=== PATIENT | female | born 1965 | race African-American/Black ===

== ENCOUNTER 2020-08-20 11:50 | Inpatient (IN) | payer OTHER, SELFPAY ==
[2020-08-20] VITALS (32 sets, daily range): BP systolic 80–139; BP diastolic 50–80
[~2020-08-20] VITALS: Ht 162.6 cm; Wt 144.2 kg
--- NOTE | 2020-08-20 11:53 | NUR ---
BIBA TO BED 6
--- NOTE | 2020-08-20 12:14 | NUR ---
54 Y/O FEMALE BIBA FROM URGENT CARE APPT. PER MEDIC PT SPO2 DROPPED TO 76% ON RA PLACED ON NRB 15L SPO2 98%. PER PT SOB X3DAYS. PER FAMILY PT GCS BASELINE IS 13, PT IS POOR HISTORIAN AND UNABLE TO PROVIDE MEDICAL HISTORY AT THIS TIME. RESP EVEN AND UNLABORED. LUNG SOUNDS ARE DIMINISHED TO BILATERAL BASES. PT IS CURRENTLY ON NON REBREATHER AT THIS TIME. AFEBRILE. PMH: HLD, PNA, HYPOTHYROIDISM NKA
--- NOTE | 2020-08-20 12:48 | NUR ---
RT AT BEDSIDE PLACING PATIENT ON BIPAP AT THIS TIME
--- NOTE | 2020-08-20 12:58 | NUR ---
PER MD AT BEDSIDE, PLACE PT ON BIPAP DUE TO WOB, DECREASED SATS, AND MENTAL STATUS. EXPLAINED TO PT REGARDING NEED FOR BIPAP AND USE. PT INDICATED THAT SHE UNDERSTOOD USE OF BIPAP.
[2020-08-20 13:03] LABS: BASOPHILS % (AUTO) 0.5 % (0.0-2.0); EOSINOPHILS % (AUTO) 0.3 % (0.0-4.0); HEMATOCRIT 30.6 % (36-48); HEMOGLOBIN 9.7 g/dL (12.0-16.0); LYMPHOCYTES # (AUTO) 0.3 K/uL (2.5-16.5); LYMPHOCYTES % (AUTO) 3.7 % (20.5-51.1); MEAN CORPUSCULAR HEMOGLOBIN 31 pg (27-31); MEAN CORPUSCULAR HGB CONC 32 g/dL (33-37); MEAN CORPUSCULAR VOLUME 97.3 fL (80-94); MONOCYTES # (AUTO) 0.5 K/uL (0.8-1.0); MONOCYTES % (AUTO) 5.3 % (1.7-9.3); NEUTROPHILS # (AUTO) 8.5 K/uL (1.8-7.7); NEUTROPHILS % (AUTO) 90.2 % (42.2-75.2); PLATELET COUNT (AUTO) 220 K/uL (140-450); RED BLOOD CELL COUNT(AUTO) 3.15 MIL/uL (4.20-5.40); RED CELL DISTRIBUTION WIDTH 17.9 % (11.6-13.7); WHITE BLOOD COUNT (AUTO) 9.4 K/uL (4.8-10.8)
--- NOTE | 2020-08-20 13:07 | NUR ---
XRAY AT BEDSIDE
--- NOTE | 2020-08-20 13:08 | NUR ---
# 16 FR Leslie catheter with 10 ml utilizing sterile technique. Immediate return of 20 ml YELLOW CLEAR urine noted. Bedside drainage bag placed below level of bladder. Urine sample collected and sent to lab. Pt tolerated procedure WELL.
[2020-08-20 13:19] LABS: PROTHROMBIN TIME 10.4 secs (10.8-13.4)
--- NOTE | 2020-08-20 13:19 | NUR ---
PT TIFFANYID SWABBED AND WALKED TO LAB
[2020-08-20 13:24] LABS: ALBUMIN 2.9 g/dL (3.4-5.0); CREATININE 1.5 mg/dL (0.6-1.3); TOTAL BILIRUBIN 0.4 mg/dL (0.0-1.0)
[2020-08-20 13:32] LABS: CARBON DIOXIDE 41.3 mmol/L (21-32); POTASSIUM 5.8 mmol/L (3.5-5.1)
[2020-08-20 13:33] LABS: ANION GAP 0.5 (8-16)
[2020-08-20] MEDS ORDERED: INSULIN REGULAR, HUMAN 100 UNIT/ML VIAL SUBQ ONE (13:40)
[2020-08-20] MEDS ORDERED: DEXTROSE 50% 50 ML SYR IVP ONE (13:40)
[2020-08-20] MEDS ORDERED: SODIUM BICARBONATE 8.4% PFS 50 MEQ/50 ML SYR IVP ONE (13:40)
--- NOTE | 2020-08-20 14:45 | NUR ---
RT AT BEDSIDE FOR REPEAT ABG DRAW.
[2020-08-20] MEDS ORDERED: INTUBATION KIT MC ONE (15:06)
[2020-08-20] MEDS ORDERED: ROCURONIUM 50 MG/5 ML VIAL IV ONE (15:10)
[2020-08-20] MEDS ORDERED: ETOMIDATE 20 MG/10 ML VIAL IVP ONE (15:10)
[2020-08-20 15:15] LABS: APPEARANCE,URINE CLEAR (CLEAR); BILIRUBIN,URINE NEGATIVE (NEGATIVE); BLOOD, URINE NEGATIVE (NEGATIVE); COLOR,URINE YELLOW (YELLOW); LEUKOCYTE ESTERASE ,URINE NEGATIVE (NEGATIVE); NITRITE, URINE NEGATIVE (NEGATIVE); UGLUCOSE NEGATIVE (NEGATIVE)
--- NOTE | 2020-08-20 15:15 | NUR ---
DR. FORD AT BEDSIDE FOR INTUBATION.
--- NOTE | 2020-08-20 15:17 | NUR ---
INTUBATION---8 ET TUBE SIZE, 23 CM AT THE TEETH.
[2020-08-20] MEDS ORDERED: ASPIRIN 600 MG SUPP RC ONE (15:30)
[2020-08-20] MEDS ORDERED: FUROSEMIDE 20 MG/2 ML VIAL IVP ONE (15:30)
--- NOTE | 2020-08-20 15:30 | NUR ---
PATIENT INTUBATED PER MD ORDER DUE TO ABNORMAL ABG RESULT. INTUBATION SUCCESSFUL WITH NO ISSUES. PATIENT IS INTUBATED WITH 8.0 ET TUBE, CAP COLOR CHANGE PRESENT, BILAT CHEST RISE PRESENT AND BREATH SOUND PRESENT BILATERALLY. TUBE IS PATENT AND SECURED WITH HOLSTER. VENT SETTING IS AC 22, 400, +5 AND FIO2 OF 60%. XRAY TAKEN CONFIRMING TUBE PLACEMENT. WILL CONTINUE TO MONITOR PATIENT PROGRESS.
[2020-08-20] MEDS ORDERED: PRED20TA5 PO (15:33)
[2020-08-20] MEDS ORDERED: ASPI-1822 PO (15:33)
[2020-08-20] MEDS ORDERED: FURO-570 PO (15:33)
[2020-08-20] MEDS ORDERED: ATOR40TA PO (15:33)
[2020-08-20] MEDS ORDERED: CHOL50005 PO (15:33)
[2020-08-20] MEDS ORDERED: LEVO0.124 PO (15:33)
[2020-08-20] MEDS ORDERED: SIMV20TA1 PO (15:33)
[2020-08-20] MEDS ORDERED: ENAL5TAB48 PO (15:33)
[2020-08-20] MEDS ORDERED: PROPOFOL 1000 MG/100 ML PREMIX 100 ML IV ONE (15:50)
[2020-08-20] MEDS ORDERED: MORPHINE SULFATE 2 MG/ML SYR IVP PRN (16:00)
[2020-08-20] MEDS ORDERED: ACETAMINOPHEN 650 MG/20.3 ML UDC NG PRN (16:10)
[2020-08-20] MEDS ORDERED: fentaNYL citrate 1 MG in NACL 0.9% 80 ML IV PRN ×2 (16:20→18:40)
[2020-08-20] MEDS: fentaNYL citrate - 50mL vial 2.5 MG in NACL 0.9% 200 ML IV PRN (16:30)
--- NOTE | 2020-08-20 16:41 | NUR ---
XRAY AT BEDSIDE
--- NOTE | 2020-08-20 16:45 | NUR ---
REPORT GIVEN TO RAMIREZ MONTANEZ.
--- NOTE | 2020-08-20 17:39 | NUR ---
Patient will be admitted to [facility]. Admited to ICU. Will go to room 1. Belongings list completed. Report to RAMIREZ MONTANEZ.
--- NOTE | 2020-08-20 17:41 | NUR ---
transferred pt to icu on vent attached to oxygen tank. pt placed in icu bed 1,sxned pt,[facility] pt tolerated transfer well.no resp distress noted
--- NOTE | 2020-08-20 17:43 | NUR ---
pt transferred to icu from ed on vent attached to oxygen tank,pt tolerated transfer well, no distress noted,and sxn pt ett after settled in room.
--- NOTE | 2020-08-20 17:45 | NUR ---
PT ARRIVED FROM ER IN [facility], PT WITH ETT TO VENT, GOOD CHEST RISE AND FALL, PT PLACED ON CORRUGATOR MACHINE OPERATOR, HR 89, BP 110/66, O2SAT 94%, VENT SETTING ACVC FIO2 75% TV 400, RR 20, PEEP 7, SKIN WARM DRY COLOR WNL, SEVER EDEMA THOUGHOUT, MULTIPLE BLISTER LIKE LESIONS TO LOWER LEGS, KELOID SCARS ON CHEST, PT PULLING ON ETT AND OTHER TUBINGS, PLACED ON BILAT SOFT RESTRAINTS TO PREVENT HARM. PIV TO LEFT AC, PROPOFOL INFUSING AT 20MCG/KG/MIN, FENTANYL 0.5MCG/KG/HR, DRY WT 149KG PER BED SCALE. SHORE CATH IN PLACE DRAINING TO GRAVITY.
[2020-08-20] MEDS: PROPOFOL 1000 MG/100 ML PREMIX 100 ML IV PRN ×2 (18:00→20:02)
--- NOTE | 2020-08-20 18:00 | NUR ---
DR HAMILTON AT BEDSIDE
--- NOTE | 2020-08-20 18:10 | NUR ---
SPOKE WITH MOTHER ON THE PHONE REGARDING ADMISSION QUESTIONS,CONSENT FOR PICC LINE OBTAINED
[2020-08-20] MEDS: FUROSEMIDE 40 MG/4 ML VIAL IVP SCH ×2 (18:13→23:02)
--- NOTE | 2020-08-20 18:29 | NUR ---
RECEIVED CALL FROM PICC RN DELBERT AND SAID HE IS ON THE WAY FOR PICC INSERTION.
--- NOTE | 2020-08-20 18:50 | NUR ---
RCV'D PT INTUBATED WITH CHARTED SETTINGS. PT NOT AWAKE. NO SOB OR DISTRESS NOTED. VENT CONNECTED TO RED OUTLET. ALARMS AUDIBLE. AMBU BAG AT BEDSIDE. DECREASED FIO2 TO 70%. SPO2 IS 94%. WILL CONTINUE TO MONITOR.
--- NOTE | 2020-08-20 19:15 | NUR ---
RECIEVED BEDSIDE ENDORSEMENT FROM DAY SHIFT RN, PT SEDATED RASS -3, HOB 30 DEGREES LOW AND SIDE RAILS UP, ETT TO VENT ACVC FIO2 75% TV 400 RATE 20 PEEP 5, SR ON MONITOR, ABD SOFT AND NON TENDER TO TOUCH, AFEBRILE, SKIN WARM AND DRY TO TOUCH, SKIN NON INTACT/SEE WOUND ASSESSMENT, OGT CLAMPED/NPO, FC IN PLACE DRAINING VIA GRAVITY, RAC 20 G SALINE LOCKED, L-WRIST 22 G SALINE LOCKED, LAC 20 G INFUSING PROPOFOL 20MCG/KG/HR AND FENTANYL 1 MCG/KG/HR, PT SHOWING NO SIGNS OF ACUTE DISTRESS, SAFETY MEASURES IN PLACE, WILL CONTINUE WITH CURRENT POC
--- NOTE | 2020-08-20 19:25 | NUR ---
DR TORREZ AT BEDSIDE
--- NOTE | 2020-08-20 20:30 | NUR ---
PICC LINE NURSE DELBERT AT BEDSIDE FOR INSERTION
--- NOTE | 2020-08-20 20:47 | NUR ---
CHEST X RAY 1 VIEW ORDERED TO SEE THE PICC LINE PLACEMENT CONFIRMATION. PICC LINE INSERTION DONE BY DELBERT PICC LINE NURSE. CHEST X RAY DONE AND DELBERT REVIEW IT AND HE SAID OKAY TO USE THE PICC LINE TO KALPESH DOUBLE LUMENS.
[2020-08-20] MEDS ORDERED: FUROSEMIDE 40 MG/4 ML VIAL IVP SCH (21:00)
--- NOTE | 2020-08-20 22:59 | NUR ---
DECREASED FIO2 TO 50%. PT TOLERATING WELL. NO SOB OR DISTRESS NOTED. RN AWARE. WILL CONTINUE TO MONITOR.
--- NOTE | 2020-08-20 23:05 | NUR ---
ADMINISTERED 0000H MEDICAITON PER MD ORDER, ORAL CARE AND SUCTIONING PERFORMED, REPOSITIONED PT, SHOWING NO SIGNS OF ACUTE DISTRESS
[2020-08-21] VITALS (53 sets, daily range): BP systolic 64–140; BP diastolic 39–84
--- NOTE | 2020-08-21 00:56 | NUR ---
VENT CHECK. PT AWAKE AND REFUSED SXN. NO DISTRESS NOTED. RN AT BEDSIDE. DECREASED FIO2 TO 40%. PT TOLERATING WELL. SPO2 96%. WILL CONTINUE TO MONITOR.
--- NOTE | 2020-08-21 02:43 | NUR ---
REPOSITIONED PT, MORNING CARE GIVEN, ORAL CARE AND SUCTIONING PERFORMED, PT SHOWING NO SIGNS OF ACUTE DISTRESS
--- NOTE | 2020-08-21 03:06 | NUR ---
DECREASED PT'S FIO2 TO 30% PT TOLERATING WELL. NO SOB OR DISTRESS NOTED. PT ASLEEP COMFORTABLY. WILL CONTINUE TO MONITOR.
[2020-08-21] MEDS: PROPOFOL 1000 MG/100 ML PREMIX 100 ML IV PRN ×3 (04:15→20:42)
[2020-08-21] MEDS: FUROSEMIDE 40 MG/4 ML VIAL IVP SCH ×4 (05:28→23:04)
[2020-08-21] MEDS ORDERED: CRUSHER, PILL MC ONE (05:36)
[2020-08-21] MEDS: LEVOTHYROXINE 0.025 MG TAB NG SCH (05:37)
--- NOTE | 2020-08-21 05:52 | NUR ---
REPOSITIONED PT, ORAL CARE AND SUCTIONING PERFORMED, EMPTIED FC BAG, ADMINISTERED 0600H AND 0630H MEDICATIONS PER MD ORDERED, PT SHOWING NO SIGNS OF ACUTE DISTRESS
[2020-08-21 06:08] LABS: ALBUMIN 2.4 g/dL (3.4-5.0); ANION GAP 4.9 (8-16); CREATININE 1.5 mg/dL (0.6-1.3); MAGNESIUM 2.4 mg/dL (1.8-2.4); POTASSIUM 4.9 mmol/L (3.5-5.1); TOTAL BILIRUBIN 0.6 mg/dL (0.0-1.0)
[2020-08-21 06:17] LABS: BASOPHILS % (AUTO) 0.3 % (0.0-2.0); EOSINOPHILS % (AUTO) 0.6 % (0.0-4.0); HEMATOCRIT 31.2 % (36-48); HEMOGLOBIN 9.9 g/dL (12.0-16.0); LYMPHOCYTES # (AUTO) 0.6 K/uL (2.5-16.5); LYMPHOCYTES % (AUTO) 7.7 % (20.5-51.1); MEAN CORPUSCULAR HEMOGLOBIN 31 pg (27-31); MEAN CORPUSCULAR HGB CONC 32 g/dL (33-37); MONOCYTES # (AUTO) 0.5 K/uL (0.8-1.0); MONOCYTES % (AUTO) 6.7 % (1.7-9.3); NEUTROPHILS # (AUTO) 6.8 K/uL (1.8-7.7); NEUTROPHILS % (AUTO) 84.7 % (42.2-75.2); PLATELET COUNT (AUTO) 230 K/uL (140-450); RED BLOOD CELL COUNT(AUTO) 3.25 MIL/uL (4.20-5.40); RED CELL DISTRIBUTION WIDTH 18.2 % (11.6-13.7); WHITE BLOOD COUNT (AUTO) 8.1 K/uL (4.8-10.8)
--- NOTE | 2020-08-21 07:11 | NUR ---
ENDORSED TO DAY SHIFT RN FOR CONTINUITY OF CARE
--- NOTE | 2020-08-21 07:16 | NUR ---
RECEIVED REPORT FROM NIGHTSHIFT NURSE. PT DRY WEIGHT 149KG. PT RESTING IN BED. FLACC 0. RESPIRATIONS EVEN AND UNLABORED WITH NO SOB OR RESPIRATORY DISTRESS. FIO2 30%, RR 20, PEEP 7. PT ON PROPOFOL AT 15MCG AND FENTYL 1MCG RASS -3. BILATERAL SOFT MITTEN RESTRAINTS. NO INJURY. SAFETY MEASURES IN PLACE. WILL CONTINUE TO MONITOR
[2020-08-21] MEDS: ATORVASTATIN 20 MG TAB NG SCH (08:29)
[2020-08-21] MEDS: ENOXAPARIN 40 MG/0.4 ML SYR SUBQ SCH (08:29)
[2020-08-21] MEDS: ASPIRIN 81 MG TAB.CHEW NG SCH (08:29)
--- NOTE | 2020-08-21 08:30 | NUR ---
ADMINISTERED SCHED MED PRESCRIBED PER MD ORDER. PT TOLERATED WELL. MEDICATION EDUCATION PERFORMED. PT APHASIC AND UNABLE TO VERBALIZE UNDERSTANDING. SAFETY MEASURES IN PLACE. WILL CONTINUE TO MONITOR
--- NOTE | 2020-08-21 08:45 | NUR ---
FNS CONSULT FOR TUBE FEEDING WAS RECEIVED. PATIENT HAS BEEN SCREENED AND CATEGORIZED HIGH NUTRITION RISK. PATIENT WILL BE SEEN WITHIN 1-2 DAYS OF ADMISSION. 08/21/20-08/22/[address]
[2020-08-21] MEDS: fentaNYL citrate - 50mL vial 2.5 MG in NACL 0.9% 200 ML IV PRN (10:18)
--- NOTE | 2020-08-21 10:30 | NUR ---
TURNED AND REPOSITIONED PT. PT TOLERATED WELL. NO SIGNS OF DISTRESS. SAFETY MEASURES IN PLACE. WILL CONTINUE TO MONITOR
[2020-08-21] MEDS ORDERED: fentaNYL citrate - 50mL vial 2.5 MG in NACL 0.9% 200 ML IV PRN (10:40)
--- NOTE | 2020-08-21 10:40 | NUR ---
DC PLANNIN YRS OLD FEMALE ENMANUEL WAS ADMITTED FROM HOME WITH A DX OF RESP FAILURE , PULMONARY EDEMA. PT HAS A HX OF MORBID OBESITY,HTN, HLD HYPOTHYROID, CONGENITAL HEART DISEASE, CHF, SLEEP APNEA AND LEARNING DEFICIT. CXR SHOWED PROBABLE PULMONARY EDEMA AND SMALL BILATERAL PLEURAL EFFUSION. PT INTUBATED SEDATED. FIO2 30% SATING 95%. ON FENTANYL AND PROPOFOL DRIP. RAPID COVID TEST NEGATIVE, INFLUENZA A&B NEGATIVE. URINE AND BLOOD CULTURE PENDING. ADMINISTERED IV LASIX AND CONTINUED HOME MEDS. CONSULTED WITH PULMO. DC PLAN PER PATIENT RESPOND TO THE TREATMENT. CM TO FOLLOW Addendum: 08/24/20 at 1204 by Marquita Dobson RN DC PLANNING: PER DR RIZZO'S NOTE PT EXTUBATED, VERY ANXIOUS PLACE PATIENT ON BIPAP FIO2 50%. PT WILL BE ON CLOSE MONITORING. CALLED [facility] FOR UPDATED CLINICALS LEFT A MESSAGE FOR YOMI BAEZA . CM TO FOLLOW Addendum: 08/25/20 at 1257 by Marquita Dobson RN DC PLANNING: CALLED [facility] SPOKE WITH [facility], SHE REQUESTED TO BE FAXED AND FAXED CLINICALS TO [phone]. CM TO FOLLOW Addendum: 08/28/20 at 0842 by Marquita Dobson RN DC PLANNING: PT STILL ON BIPAP 100% FIO2 SATING 97%. PULMO DR RIZZO FOLLOWING TRIED HFNC OVERNIGHT AND BECAME HYPERCAPNIC AND HYPOXIC, AND PLACED ON BIPAP. DOPAMINE TO MAINTAIN MAP 65MMHG AND ABOVE. MIDODRINE SUPPORT. CALLED [facility] AND UPDATED PT'S CLINICALS. DC PLAN PER PT RESPOND TO THE TREATMENT. CM TO FOLLOW Addendum: 09/03/20 at 1353 by Marquita Dobson RN DC PLANNING: PT IS STILL ON HIGH FLOW O2 , CALLED [facility] LEFT A MESSAGE FOR [facility] EVAL. CM TO FOLLOW Addendum: 09/08/20 at 0850 by Ana Velasquez CM Addendum: 09/04/20 at 1644 by Marquita Dobson RN DC PLANNING RECEIVED A CALL FROM MAKENZIE BAEZA AT [facility] [phone] STATED SHE DISCUSSED WITH HER MUSICAL INSTRUMENTS ASSEMBLER AND DENIED FOR LTAC EVAL. [facility] RECOMMENDED IF NEEDED TO DO TRACH AND PEG AT THE HOSPITAL. DISCUSSED WITH DR SLOAN STATED HE ALREADY TALKED TO [facility] AND THE PLAN IS TO STAY UNTIL SHE GETS BETTER. ARYAN TO FOLLOW
--- NOTE | 2020-08-21 12:04 | NUR ---
TURNED AND REPOSITIONED PT. PT TOLERATED WELL. NO SIGNS OF DISTRESS. SAFETY MEASURES IN PLACE. WILL CONTINUE TO MONITOR
[2020-08-21] MEDS: NYSTATIN POW 100 MU/GM 15 GM BTL TP SCH (13:10)
[2020-08-21] MEDS: THERAHONEY GEL 42.5 GM TP SCH (13:10)
[2020-08-21] MEDS: GAUZE TP SCH (13:10)
--- NOTE | 2020-08-21 13:44 | NUR ---
08/21/20 RD INITIAL ASSESSMENT COMPLETED PLEASE REFER TO NUTRITION ASSESSMENT UNDER CARE ACTIVITY FOR ESTIMATED NUTRITIONAL NEEDS. 1. START TUBE FEEDING AT 25 ML/HR AND INCREASE TO 50 ML/HR AFTER 2 HR. CONTINUE VITAL AF 1.2 @ 50 ML/HR -THIS WILL PROVIDE 1440 KCAL AND 90 GM OF PROTEIN WHICH MEETS 100% OF KCAL AND 88% OF PROTEIN NEEDS 2. CONTINUE FREE WATER PER MD 50 ML Q8H 3. IF EXTUBATED, CONSIDER SWALLOW EVALUATION 4. RD TO FOLLOW-UP 2-3 DAYS, HIGH RISK AYANA BAEZ
--- NOTE | 2020-08-21 14:02 | NUR ---
TURNED AND REPOSITIONED PT. PT TOLERATED WELL. NO SIGNS OF DISTRESS. SAFETY MEASURES IN PLACE. WILL CONTINUE TO MONITOR
--- NOTE | 2020-08-21 16:13 | NUR ---
WOUND CARE EVALUATION NOTE: SKIN ASSESSMENT DONE WITH PRIMARY RN ON THIS 54 Y/O PT ADMITTED WITH DANYELL SCALE AT VERY HIGH RISK AND UN-STAGEABLE PRESSURE INJURY. PT ADMITTED WITH INITIAL DX OF SOB. ACUTE HYPOXEMIC, HX OF MORBID OBESITY, HTN, HYPERLIPIDEMIA, HYPOTHYROID, CHF, SLEEP APNEA, LEARNING DEFICIT AND ANASARCA.ABOVE INFORMATION OBTAIN FROM H&P. PT. IS INTUBATED, SKIN WARM AND MOIST, BILATERAL UPPER EXTREMITIES MOIST WITH MULTIPLE ECCHYMOSIS. ABDOMINAL EXTENDED SOFT TO TOUCH. DELAY CAPILLARY REFILLED. PT. DE SAT TO 66 % WHEN TURN TO SIDE DURING ASSESSMENT. POC DISCUSSED WITH PRIMARY RN. WILL ATTEMPT AUTOLYTIC DEBRIDEMENT FIRST AT THIS TIME TILL PT. IS MORE STABLE FOR SURGICAL DEBRIDEMENT IF NEEDED. INTEGUMENTARY: -INTERTRIGO TO BILATERAL UNDER BREAST, LOWER ABDOMINAL FOLDS AND GROINS -BLE SEVERE XEROSIS SKIN WITH NO OPEN ACTIVE WOUND, MULTIPLE BLISTER LIKE BUMPS, ORANGE SKIN, MULTIPLE DRY SCABS. RLE EDEMA IS GREATER THAN RIGHT. UN-KNOW HX OF POSSIBLE LYMPHEDEMA -PRESSURE INJURIES UN-STAGEABLE TO RIGHT ISCHIUM 9X6CM WITH WOUND BED 100% BROWN MOIST SLOUGH TISSUE, NO ODOR, WOUND EDGE FLAT, ALFA WOUND SKIN PEELING DRY SCALY SKIN AND THIN SCABS, SURROUNDING REDNESS TISSUE INDICATED FURTHER DAMAGE. - BILATERAL HEEL BLANCHABLE REDNESS, SKIN INTACT. RECOMMENDATIONS -SURGEON CONSULT DEBRIDEMENT TO RIGHT ISCHIUM WOUND WHEN PT IS STABLE -APPLY NYSTATIN POWDERS TO BILATERAL UNDER BREAST, LOWER ABDOMINAL FOLDS AND GROINS BID AND PRN IF SOILING, -CLEANSE RIGHT ISCHIUM WOUNDS WITH WOUND CARE SOLUTION, PAT DRY, APPLY THERAHONEY GEL TO WOUND BED AND APPLY DRY DRESSING SECURED WITH TAPE QD AND PRN IF SOILING -BLE APPLY XEROFORM DRESSING AND WRAP WITH KERLIX ROLLS, DRESSING CHANGE 3X/WEEK M-W- -SKIN PREP WIPE TO BILATERAL HEELS BID AND WENDI -TURN AND REPOSITION PATIENT Q 2H -ASSESS AND MONITOR SKIN CONDITION DURING POSITION CHANGE -OFFLOAD BILATERAL HEELS BY PLACING PILLOWS UNDER CALVES AT ALL TIMES, UNLESS OTHERWISE CONTRAINDICATED -PRESSURE REDISTRIBUTION SURFACE THERAPY -KEEP SKIN CLEAN AND DRY AT ALL TIMES. PLEASE CONTACT WOUND CARE NURSE FOR ANY QUESTION AND CHANGE OF WOUND CONDITION.
[2020-08-21 16:35] LABS: CREATINE KINASE MB 1.5 ng/mL (0-3.6)
--- NOTE | 2020-08-21 17:23 | NUR ---
SPOKE WITH KHRIS TO FOLLOW UP ON PATIENTS ALLERGIES, PER KHRIS [phone] THE PATIENT DOES NOT HAVE ANY KNOWN ALLERGIES. AWARE. SAFETY MEASURES IN PLACE. WILL CONTINUE TO MONITOR
[2020-08-21] MEDS: ALBUTEROL 0.083% 2.5 MG/3 ML NEBU INH PRN (17:30)
--- NOTE | 2020-08-21 18:30 | NUR ---
ADMINISTERED SCHED MED PRESCRIBED PER MD ORDER. PT TOLERATED WELL. MEDICATION EDUCATION PERFORMED. PT SEDATED AND UNABLE TO VERBALIZE UNDERSTANDING. SAFETY MEASURES IN PLACE. WILL CONTINUE TO MONITOR
--- NOTE | 2020-08-21 19:01 | NUR ---
ENDORSED TO NIGHTSHIFT FOR CONTINUITY OF CARE. PT IS STABLE
--- NOTE | 2020-08-21 19:05 | NUR ---
RECIEVED BEDSIDE ENDORSEMENT FROM DAY SHIFT RN, PT SEDATED RASS -3, HOB 30 DEGREES LOW AND SIDE RAILS UP, ETT TO VENT ACVC FIO2 35% TV 400 RATE 20 PEEP 6, SR ON MONITOR, ABD SOFT AND NON TENDER TO TOUCH, AFEBRILE, SKIN WARM AND DRY TO TOUCH, SKIN NON INTACT/SEE WOUND ASSESSMENT, OGT TO FEEDING INUSING, FC IN PLACE DRAINING VIA GRAVITY, L-WRIST 22 G SALINE LOCKED, KALPESH PICC INFUSING PROPOFOL 15 MCG/KG/HR AND FENTANYL 1 MCG/KG/HR, PT SHOWING NO SIGNS OF ACUTE DISTRESS, SAFETY MEASURES IN PLACE, WILL CONTINUE WITH CURRENT POC
--- NOTE | 2020-08-21 21:37 | NUR ---
REPOSITIONED PT, ORAL CARE AND SUCTIONING PERFORMED, PT SHOWING NO SIGNS OF ACUTE DISTRESS
--- NOTE | 2020-08-21 23:07 | NUR ---
ADMINISTERED 0000H MEDICAITON PER MD ORDERS, ORAL CARE AND SUCTIONING GIVEN, REPOSTIONED PT
[2020-08-22] VITALS (34 sets, daily range): BP systolic 65–186; BP diastolic 32–95
[2020-08-22] MEDS: NYSTATIN POW 100 MU/GM 15 GM BTL TP SCH ×2 (00:04→13:38)
--- NOTE | 2020-08-22 00:45 | NUR ---
RECIEVED LAB RESULTS, POSITIVE BLOOD CULTURE, POSITIVE GRAM COCCI, CONTACTED [facility], AWAITING CALL BACK
[2020-08-22] MEDS ORDERED: VANCOMYCIN PER PHARMACY MC PRN (02:00)
[2020-08-22] MEDS ORDERED: VANCOMYCIN 1GM/DEXT 5% PREMIX 200 ML IV SCH ×2 (02:30→04:00)
--- NOTE | 2020-08-22 02:45 | NUR ---
ADMINISTERED FIRST DOSE OF VANCOMYCIN
--- NOTE | 2020-08-22 03:10 | NUR ---
MORNING CARE GIVEN, REPOSITIONED PT, ORAL CARE AND SUCTIONING GIVEN, PT SHOWING NO SIGNS OF ACUTE DISTRESS
[2020-08-22] MEDS: PROPOFOL 1000 MG/100 ML PREMIX 100 ML IV PRN (03:32)
[2020-08-22] MEDS ORDERED: VANCOMYCIN 1,000 MG VIAL ONE ×2 (04:02)
--- NOTE | 2020-08-22 04:30 | NUR ---
ADMINISTERED 2ND DOSE OF VANCOMYCIN
[2020-08-22] MEDS: FUROSEMIDE 40 MG/4 ML VIAL IVP SCH ×5 (05:36→18:59)
[2020-08-22] MEDS ORDERED: CRUSHER, PILL MC ONE (05:39)
[2020-08-22] MEDS: LEVOTHYROXINE 0.025 MG TAB NG SCH (05:49)
--- NOTE | 2020-08-22 06:17 | NUR ---
ADMINISTERED 0600H MEDICATIONS PER MD ORDER, ORAL CARE AND SUCTIONING GIVEN, PT SHOWING NO SIGNS OF ACUTE DISTRESS
[2020-08-22 06:21] LABS: ANION GAP 7.1 (8-16); CARBON DIOXIDE 36.6 mmol/L (21-32); MAGNESIUM 2.5 mg/dL (1.8-2.4); POTASSIUM 4.7 mmol/L (3.5-5.1); TOTAL BILIRUBIN 0.6 mg/dL (0.0-1.0)
[2020-08-22 06:51] LABS: BASOPHILS % (AUTO) 0.5 % (0.0-2.0); EOSINOPHILS # (AUTO) 0.1 K/uL (0-0.4); EOSINOPHILS % (AUTO) 1.1 % (0.0-4.0); HEMATOCRIT 31.7 % (36-48); HEMOGLOBIN 10.3 g/dL (12.0-16.0); LYMPHOCYTES # (AUTO) 0.6 K/uL (2.5-16.5); LYMPHOCYTES % (AUTO) 6.8 % (20.5-51.1); MEAN CORPUSCULAR HEMOGLOBIN 31 pg (27-31); MEAN CORPUSCULAR HGB CONC 33 g/dL (33-37); MONOCYTES # (AUTO) 0.8 K/uL (0.8-1.0); MONOCYTES % (AUTO) 8.7 % (1.7-9.3); NEUTROPHILS # (AUTO) 7.6 K/uL (1.8-7.7); NEUTROPHILS % (AUTO) 82.9 % (42.2-75.2); PLATELET COUNT (AUTO) 231 K/uL (140-450); RED BLOOD CELL COUNT(AUTO) 3.33 MIL/uL (4.20-5.40); RED CELL DISTRIBUTION WIDTH 18.9 % (11.6-13.7); WHITE BLOOD COUNT (AUTO) 9.1 K/uL (4.8-10.8)
--- NOTE | 2020-08-22 07:11 | NUR ---
ENDORSED TO DAY SHIFT RN FOR CONTINUITY OF CARE
--- NOTE | 2020-08-22 07:15 | NUR ---
RECEIVED REPORT FROM NIGHTSHIFT NURSE. PT RESTING IN BED. FLACC O. DRY WEIGHT 149KG. FIO2 30%, PEEP 6, TV 400. RESPIRATIONS EVEN AND UNLABORED WITH NO SOB OR RESPIRATORY DISTRESS. KALPESH PICC LINE IS CLEAN, DRY, AND INTACT. SKIN WARM AND DRY TO TOUCH. SHORE DRAINING VIA GRAVITY. SAFETY MEASURES IN PLACE. WILL CONTINUE TO MONITOR
[2020-08-22] MEDS ORDERED: NACL 0.9% 500 ML IV SCH (07:45)
--- NOTE | 2020-08-22 07:47 | NUR ---
CALLED DR HAMILTON REGARDING PT BP LOW 66/57, PER DR TO ORDER ALBUMIN AND 500ML NS BOLUS, AND HOLD LASIX FOR TODAY. WILL CONTINUE WITH ORDERS.
--- NOTE | 2020-08-22 08:05 | NUR ---
RECEIVED ON A [place] R860 VENTILATOR PLUGGED INTO RED OUTLET TOLERATING WELL WITHOUT ADVERSE REACTIONS NOTED TO AN ENDOTRACHEAL TUBE #8.0 SECURED AT 24cm TEETH/GUM LINE WITH AN ANCHOR FAST CUFF PRESSURE CHECKED NOTED AMBU BAG AT BEDSIDE LOC SEDATED GOOD CHEST RISE ENDOTRACHEAL SUCTION FOR SMALL SEMI THICK YELLOW WITH BROWN TINGE SECRETIONS AIRWAY PATENT
[2020-08-22] MEDS ORDERED: ALBUMIN HUMAN 5 % 250 ML IV SCH (08:30)
[2020-08-22] MEDS: ENOXAPARIN 40 MG/0.4 ML SYR SUBQ SCH (08:39)
[2020-08-22] MEDS: ATORVASTATIN 20 MG TAB NG SCH (08:39)
[2020-08-22] MEDS: ASPIRIN 81 MG TAB.CHEW NG SCH (08:39)
--- NOTE | 2020-08-22 08:45 | NUR ---
ADMINISTERED SCHED MED PRESCRIBED PER MD ORDER. PT TOLERATED WELL. MEDICATION EDUCATION PERFORMED. PT SEDATED UNABLE TO VERBALIZE UNDERSTANDING. SAFETY MEASURES IN PLACE. WILL CONTINUE TO MONITOR
--- NOTE | 2020-08-22 10:03 | NUR ---
TURNED AND REPOSITIONED PATIENT. PT TOLERATED WELL. NO SIGNS OF DISTRESS. SAFETY MEASURES IN PLACE. WILL CONTINUE TO MONITOR
--- NOTE | 2020-08-22 10:10 | NUR ---
LOC SEMI AWAKE RESTING WELL GOOD CHEST RISE ENDOTRACHEAL SUCTION FOR LARGE THICK YELLOW SECRETIONS AIRWAY PATENT
[2020-08-22] MEDS: ALBUTEROL 0.083% 2.5 MG/3 ML NEBU INH PRN ×3 (10:28→19:45)
[2020-08-22] MEDS: DEXMEDETOMIDINE HCL 400 MCG in NACL 0.9% 96 ML IV PRN (11:19)
--- NOTE | 2020-08-22 12:03 | NUR ---
TURNED AND REPOSITIONED PATIENT. PT TOLERATED WELL. NO SIGNS OF DISTRESS. SAFETY MEASURES IN PLACE. WILL CONTINUE TO MONITOR
--- NOTE | 2020-08-22 12:10 | NUR ---
LOC AWAKE AND IRRITABLE UNABLE TO WEAN AT THIS TIME EVEN ON PRECEDEX GOOD CHEST RISE AIRWAY PATENT FOOD SCIENTIST TO ATTEMPT WEANING AT A LATER TIME
--- NOTE | 2020-08-22 12:59 | NUR ---
DAUGHTER KHRIS CALLED AND WANTED AN UPDATE. UPDATE GIVEN. KHRIS VERBALIZED UNDERSTANDING. SAFETY MEASURES IN PLACE. WILL CONTINUE TO MONITOR
[2020-08-22] MEDS: GAUZE TP SCH (13:38)
[2020-08-22] MEDS: THERAHONEY GEL 42.5 GM TP SCH (13:38)
--- NOTE | 2020-08-22 14:02 | NUR ---
TURNED AND REPOSITIONED PT. CLEANED UP PATIENT. PT TOLERATED WELL. WILL CONTINUE TO MONITOR
--- NOTE | 2020-08-22 14:09 | NUR ---
STABLE NO DISTRESS NOTED GOOD CHEST RISE AIRWAY PATENT PATIENT UNABLE TO TRIGGER ADEQUATE SpVt (LESS THAN 200ml) DURING SBT TRIAL OF CPAP PEEP OF 5cmH2O PS OF [id number] CHANGED MODE TO SIMV WITH RATE STARTING AT 18 BPM DESCENDING RATE BY 2 BPM WITH EACH DECREASED RATE PATIENT WITH "RIDE" THE VENTILATOR WITH NO TRIGGER SETTLED ON RATE OF 10 BPM WITH TRIGGERED SpRate OF 2-3 BPM; INITIATED PS AT [id number] WHILE TRYING TO MAINTAIN SpVt OF 6ml/kg (330ml) INDUSTRIAL ARTS TEACHER TO MONITOR AND TITRATED PS TOLERATED DAVEY/RN NOTIFIED
--- NOTE | 2020-08-22 15:36 | NUR ---
TOLERATING SIMV WEANING WELL WITHOUT COMPLICATIONS NOTED EQUAL CHEST WITH GOOD AERATION RISE AIRWAY PATENT SpVt 340-360ml TITRATED PS TO [id number] ELECTRICIAN JOURNEYMAN WIREMAN TO MONITOR AND TITRATE PS TOLERATED DAVEY/RN NOTIFIED
--- NOTE | 2020-08-22 16:08 | NUR ---
TURNED AND REPOSITIONED PT. CLEANED UP PATIENT. PT TOLERATED WELL. WILL CONTINUE TO MONITOR
[2020-08-22] MEDS ORDERED: DOPamine 400 MG/D5W PREMIX 250 ML IV ONE (17:41)
--- NOTE | 2020-08-22 17:42 | NUR ---
RESTING WELL NO SOB NOTED ENDOTRACHEAL TUBE SUCTION FOR SMALL THIN PALE YELLOW SECRETIONS WITH FEW PLUGS SpVt +360ml TITRATED PS TO [id number] DAVEY/RN NOTIFIED
[2020-08-22] MEDS: DOPamine 400 MG/D5W PREMIX 250 ML IV PRN (17:58)
--- NOTE | 2020-08-22 18:00 | NUR ---
PT BP 71/[address] P[address] TROREZ. ORDERS RECIEVED. DOPAMINE STARTED. WILL CONTINUE TO MONITOR
--- NOTE | 2020-08-22 19:10 | NUR ---
ENDORSED TO NIGHTSHIFT FOR CONTINUITY OF CARE
--- NOTE | 2020-08-22 19:15 | NUR ---
RECIEVED BEDSIDE ENDORSEMENT FROM DAY SHIFT RN, PT SEDATED RASS -3, HOB 30 DEGREES LOW AND SIDE RAILS UP, ETT TO VENT SIMV VC FIO2 30% TV 400 RATE 10 PEEP 6, SR/ST ON MONITOR, ABD SOFT AND NON TENDER TO TOUCH, AFEBRILE, SKIN WARM AND DRY TO TOUCH, SKIN NON INTACT/SEE WOUND ASSESSMENT, OGT TO FEEDING INFUSING, FC IN PLACE DRAINING VIA GRAVITY, L-WRIST 22 G SALINE LOCKED, KALPESH PICC INFUSING PROPOFOL, PRECEDEX AND NS TKO, PT SHOWING NO SIGNS OF ACUTE DISTRESS, SAFETY MEASURES IN PLACE, WILL CONTINUE WITH CURRENT POC
--- NOTE | 2020-08-22 19:40 | NUR ---
RECEIVED PT FROM DAY SHIFT ON VENTILATOR SETTING SIMV/VC 400, R10, 30% FIO2, PEEP 5, PS 14. PT IS INTUBATED WITH ETT 8.0 SECURED WITH ANCHORFAST 24CM @ TEETH. VENTILATOR IN PLUGGED INTO THE RED OUTLET, ALARMS SET AUDIBLE. AIRWAY PATENT.BVM @ BEDSIDE, B/S DIMINISHED BILATERALLY. PT IS IN NO RESPIRATORY DISTRESS, WILL CONTINUE TO MONITOR.
--- NOTE | 2020-08-22 21:17 | NUR ---
REPOSITIONED PT, ORAL CARE AND SUCTIONING GIVEN, PT SHOWING NO SIGNS OF ACUTE DISTRESS
--- NOTE | 2020-08-22 23:49 | NUR ---
REPOSITIONED PT, ORAL CARE AND SUCTIONING PERFORMED, PT SHOWING NO SIGNS OF ACUTE DISTRESS
[2020-08-23] VITALS (34 sets, daily range): BP systolic 70–136; BP diastolic 45–92
[2020-08-23] MEDS: NYSTATIN POW 100 MU/GM 15 GM BTL TP SCH ×2 (00:14→13:23)
[2020-08-23] MEDS: VANCOMYCIN 1,750 MG in DEXTROSE 5% 500 ML IV SCH (01:00)
--- NOTE | 2020-08-23 01:43 | NUR ---
ORAL CARE AND SUCTIONING GIVEN, REPOSITIONED PT, SHOWING NO SIGNS OF ACUTE DISTRESS
[2020-08-23] MEDS: DEXMEDETOMIDINE HCL 400 MCG in NACL 0.9% 96 ML IV PRN ×2 (03:04→18:40)
--- NOTE | 2020-08-23 03:50 | NUR ---
MORNING CARE GIVEN, ORAL CARE AND SUCTIONING PERFORMED, REPOSITIONED PT, PT SHOWING NO SIGNS OF ACUTE DISTRESS
[2020-08-23 05:13] LABS: BASOPHILS % (AUTO) 0.2 % (0.0-2.0); EOSINOPHILS # (AUTO) 0.1 K/uL (0-0.4); EOSINOPHILS % (AUTO) 0.6 % (0.0-4.0); HEMATOCRIT 30.9 % (36-48); HEMOGLOBIN 9.8 g/dL (12.0-16.0); LYMPHOCYTES # (AUTO) 0.4 K/uL (2.5-16.5); MEAN CORPUSCULAR HEMOGLOBIN 31 pg (27-31); MEAN CORPUSCULAR HGB CONC 32 g/dL (33-37); MEAN CORPUSCULAR VOLUME 96.6 fL (80-94); MONOCYTES # (AUTO) 0.7 K/uL (0.8-1.0); MONOCYTES % (AUTO) 6.9 % (1.7-9.3); NEUTROPHILS # (AUTO) 9.2 K/uL (1.8-7.7); PLATELET COUNT (AUTO) 231 K/uL (140-450); WHITE BLOOD COUNT (AUTO) 10.4 K/uL (4.8-10.8)
[2020-08-23] MEDS: LEVOTHYROXINE 0.025 MG TAB NG SCH (05:41)
[2020-08-23] MEDS: DOPamine 400 MG/D5W PREMIX 250 ML IV PRN ×2 (05:41→21:37)
--- NOTE | 2020-08-23 05:45 | NUR ---
ADMINISTERED 0630H MEDICATION PER MD ORDERS
[2020-08-23 05:47] LABS: ANION GAP 8.4 (8-16); CARBON DIOXIDE 36.4 mmol/L (21-32); CREATININE 1.9 mg/dL (0.6-1.3); POTASSIUM 4.8 mmol/L (3.5-5.1)
[2020-08-23 06:46] LABS: LYMPHOCYTES % (AUTO) 3.4 % (20.5-51.1); NEUTROPHILS % (AUTO) 88.9 % (42.2-75.2)
--- NOTE | 2020-08-23 07:11 | NUR ---
ENDORSED TO DAY SHIFT RN FOR CONTINUITY OF CARE
--- NOTE | 2020-08-23 07:16 | NUR ---
RECEIVED REPORT FROM NIGHTSHIFT NURSE. PT RESTING IN BED. FLACC 0. DRY WEIGHT 149KG. FIO2 24%, PEEP 5, TV 400. RESPIRATIONS EVEN AND UNLABORED WITH NO SOB OR RESPIRATORY DISTRESS. KALPESH PICC LINE IS CLEAN, DRY, AND INTACT. SKIN WARM AND DRY TO TOUCH. SHORE DRAINING VIA GRAVITY. SAFETY MEASURES IN PLACE. WILL CONTINUE TO MONITOR
[2020-08-23] MEDS: ALBUTEROL 0.083% 2.5 MG/3 ML NEBU INH PRN ×2 (07:31→11:48)
--- NOTE | 2020-08-23 07:31 | NUR ---
RECEIVED ON A [employer] R860 VENTILATOR PLUGGED INTO RED OUTLET TOLERATING WELL WITHOUT ADVERSE REACTIONS NOTED TO AN ENDOTRACHEAL TUBE #8.0 SECURED AT 24cm TEETH/GUM LINE WITH AN ANCHOR FAST CUFF PRESSURE CHECKED NOTED AMBU BAG AT BEDSIDE LOC SEDATED RESTING COMFORTABLY ENDOTRACHEAL TUBE SUCTION FOR SMALL THIN YELLOW TO HAZY SECRETONS AIRWAY PATENT
[2020-08-23] MEDS: ENOXAPARIN 40 MG/0.4 ML SYR SUBQ SCH (08:26)
[2020-08-23] MEDS: LACTOBACILLUS RHAMNOSUS GG 1 EACH CAP PO SCH (08:27)
[2020-08-23] MEDS: ASPIRIN 81 MG TAB.CHEW NG SCH (08:27)
[2020-08-23] MEDS: ATORVASTATIN 20 MG TAB NG SCH (08:27)
--- NOTE | 2020-08-23 09:30 | NUR ---
DR. HAMILTON AT BEDSIDE ASSESSING PATIENT
--- NOTE | 2020-08-23 11:48 | NUR ---
REMAINS ON SEDATION/PRECEDEX ASLEEP EASILY AWAKENS TOLERATING SBT WELL WITHOUT COMPLICATIONS EQUAL CHEST RISE ENDOTRACHEAL SUCTION FOR MODERATE SEMI THICK YELLOW SECRETIONS AIRWAY PATENT SpVt PRE SX/TX 370ml POST SX/TX 450ml POST HHN THERAPY TITRATED PS TO 8cmH2O DAVEY/RN NOTIFIED
[2020-08-23] MEDS: FUROSEMIDE 40 MG/4 ML VIAL IVP SCH ×3 (12:00→12:29)
--- NOTE | 2020-08-23 12:04 | NUR ---
TURNED AND CHANGED PATIENT. REPOSITIONED PATIENT COMFORTABLY. PT TOLERATED WELL. SAFETY MEASURES IN PLACE. WILL CONTINUE TO MONITOR
--- NOTE | 2020-08-23 13:10 | NUR ---
PERFORMED WOUND CARE ORDERED PER MD ORDER. PT TOLERATED WELL. NO SIGNS OF DISTRESS. SAFETY MEASURES IN PLACE. WILL CONTINUE TO MONITOR
[2020-08-23] MEDS: GAUZE TP SCH (13:23)
[2020-08-23] MEDS: THERAHONEY GEL 42.5 GM TP SCH (13:23)
--- NOTE | 2020-08-23 13:34 | NUR ---
RESTING WELL TOLERATING SBT WELL WITHOUT PULMONARY DISTRESS NOTED GOOD CHEST RISE ENDOTRACHEAL SUCTION FOR SMALL THIN HAZY YELLOW SECRETIONS WITH SMALL PLUG AIRWAY PATENT
--- NOTE | 2020-08-23 14:02 | NUR ---
TURNED AND CHANGED PATIENT. REPOSITIONED PATIENT COMFORTABLY. PT TOLERATED WELL. SAFETY MEASURES IN PLACE. WILL CONTINUE TO MONITOR
--- NOTE | 2020-08-23 14:28 | NUR ---
CALLED DR. FOZIA HAMILTON AT [facility] [phone] CONNECTED TO EXCHANGE SPOKE TO RAKEL TUTTLE REP TO PAGE FORMENTIONED REQUIRED INFORMATION AND RETURN PHONE GIVEN [phone]
--- NOTE | 2020-08-23 14:31 | NUR ---
RETURN CALL FROM DR. FOZIA SCHULTE REVIEWED ABG SAMPLE REPORT, DIAGNOSTIC VITALS, SATURATION ON ABG RESULTS VERSUS MONITOR SATURATION, LENGTH OF SBT, PATIENT LOC, SpVt AND SpRate; TORBO: CONTINUE WITH SBT TRIAL TODAY TOLERATED; NOC RETURN TO SIMV RATE 10 PEEP 5cmH20 PS 8cmH2O; TOMORROW 08/24 AT 7AM CONTINUE WITH SBT IF TOLERATING AFTER 3 HOURS EXTUBATE PATIENT; NO ABG REQUIRED
--- NOTE | 2020-08-23 16:00 | NUR ---
TURNED AND CHANGED PATIENT. REPOSITIONED PATIENT COMFORTABLY. PT TOLERATED WELL. SAFETY MEASURES IN PLACE. WILL CONTINUE TO MONITOR
--- NOTE | 2020-08-23 16:23 | NUR ---
RESTING WELL TOLERATING SBT WITH NO EVIDENCE OF RESPIRATORY DISTRESS NOTED EQUAL CHEST RISE AIRWAY PATENT CONTINUE WITH SBT TOLERATED
--- NOTE | 2020-08-23 17:40 | NUR ---
TOLERATING SBT TRIAL FOR EIGHT HOURS NOW GOOD CHEST RISE ENDOTRACHEAL SUCTION FOR MODERATE THICK YELLOW SECRETIONS AIRWAY PATENT DIGITAL PHOTOGRAPHIC PRINTER TO ENDORSE TO NOC SHIFT TO PLACE MODE BACK ON PREVIOUS SETTINGS OF SIMV MODE RATE OF 10 PEEP 5cmH2O PS 8cmH2O FIO2 26% TO REST PATENT
--- NOTE | 2020-08-23 18:15 | NUR ---
PT RESTING IN BED. FLACC 0. RESPIRATIONS EVEN AND UNLABORED WITH NO SOB OR RESPIRATORY DISTRESS. SAFETY MEASURES IN PLACE. WILL CONTINUE TO MONITOR
--- NOTE | 2020-08-23 19:00 | NUR ---
ENDORSED TO NIGHTSHIFT NURSE FOR CONTINUITY OF CARE
--- NOTE | 2020-08-23 20:00 | NUR ---
RECEIVED PATIENT IN VENT VIA ETT, PATIENT TOLERATED SBT TRIAL AND BACK TO SIMV MODE, ON OG TUBE FEEDING WITH VITAL AT 50 ML/HR, SEDATED WITH PRECEDEX AT 0.2 MCG/KG/HR, DOPAMIN 3 MCG/KG/MIN TO KEEP SBP >90 , SHORE CATHETER IN PLACE AND DRAINING TO GRAVITY. ALL IV INFUSING AT [place] PICC LINE. RASS SCORE -1 AT THIS TIME.
--- NOTE | 2020-08-23 22:15 | NUR ---
TITRATED DOPAMIN TO 2 MCG AT 2109 , BP DROP FROM 128/73 TO 70/45 , PUT BACK TO 3 MCG/KG/MIN
[2020-08-24] VITALS (30 sets, daily range): BP systolic 90–176; BP diastolic 45–134
[2020-08-24] MEDS: NYSTATIN POW 100 MU/GM 15 GM BTL TP SCH ×2 (01:45→13:04)
[2020-08-24] MEDS: VANCOMYCIN 1,750 MG in DEXTROSE 5% 500 ML IV SCH (01:46)
--- NOTE | 2020-08-24 04:00 | NUR ---
TURN AND REPOSITION Q2H TO KEEP SKIN CLEAN AND DRY. ORAL CARE GIVEN, WILL CONTINUE TO MONITOR.
[2020-08-24] MEDS: LEVOTHYROXINE 0.025 MG TAB NG SCH (05:43)
[2020-08-24 06:14] LABS: BASOPHILS % (AUTO) 0.4 % (0.0-2.0); EOSINOPHILS # (AUTO) 0.2 K/uL (0-0.4); EOSINOPHILS % (AUTO) 2.2 % (0.0-4.0); HEMATOCRIT 29.5 % (36-48); HEMOGLOBIN 9.6 g/dL (12.0-16.0); LYMPHOCYTES # (AUTO) 0.5 K/uL (2.5-16.5); LYMPHOCYTES % (AUTO) 6.1 % (20.5-51.1); MEAN CORPUSCULAR HEMOGLOBIN 31 pg (27-31); MEAN CORPUSCULAR HGB CONC 32 g/dL (33-37); MEAN CORPUSCULAR VOLUME 95.6 fL (80-94); MONOCYTES # (AUTO) 0.4 K/uL (0.8-1.0); MONOCYTES % (AUTO) 4.8 % (1.7-9.3); NEUTROPHILS # (AUTO) 7.6 K/uL (1.8-7.7); NEUTROPHILS % (AUTO) 86.5 % (42.2-75.2); PLATELET COUNT (AUTO) 231 K/uL (140-450); RED BLOOD CELL COUNT(AUTO) 3.09 MIL/uL (4.20-5.40); RED CELL DISTRIBUTION WIDTH 18.3 % (11.6-13.7); WHITE BLOOD COUNT (AUTO) 8.8 K/uL (4.8-10.8)
[2020-08-24 06:22] LABS: ANION GAP 7.7 (8-16); CARBON DIOXIDE 36.3 mmol/L (21-32); CREATININE 1.4 mg/dL (0.6-1.3); MAGNESIUM 2.3 mg/dL (1.8-2.4); TOTAL BILIRUBIN 0.5 mg/dL (0.0-1.0)
--- NOTE | 2020-08-24 06:49 | NUR ---
PICTURE TO RIGHT BUTTOCK TAKEN , DRESSING CHANGED. BOTH LEG BLISTER DRY AND LEFT OPEN TO AIR, PICTURE TAKEN.
--- NOTE | 2020-08-24 07:30 | NUR ---
RECEIVED REPORT FROM GLUE REEL OPERATOR NURSE. ETT TO VENT, SIMV VC FIO2 24%, PEEP 5, TV 400 R 24. FLACC 0. DRY WEIGHT 149KG. RESPIRATIONS EVEN AND UNLABORED, NO SOB OR RESPIRATORY DISTRESS. [place] PICC LINE RUNNING DOPAMINE AT 3MCG AND PRECEDEX AT 0.2MCG. SKIN NOT INTACT, WITH R BUTTOCK UNSTAGEABLE. SHORE DRAINING VIA GRAVITY. OGT TO FEEDING. SAFETY MEASURES IN PLACE. WILL CONTINUE TO MONITOR
--- NOTE | 2020-08-24 08:18 | NUR ---
RCV'D PT INTUBATED WITH 8.0 ETT AT 24 AT TEETH. SETTINGS CHARTED. VENT CONNECTED TO RED OUTLET. ALARMS AUDIBLE. AMBU BAG AT BEDSIDE. PT ON PRECEDEX. CALM AND FOLLOWING COMMANDS. STARTED SBT CPAP 5 PS 8. RN AND CHARGE NURSE AWARE. MONITORING PATIENT.
--- NOTE | 2020-08-24 09:15 | NUR ---
DUE MORNING MEDS GIVEN. PT ON SBT. TOLERATING WELL
--- NOTE | 2020-08-24 09:20 | NUR ---
PATIENT ON SBT CPAP 5 PS 8. PATIENT TOLERATING WELL. PT AWAKE AND ALERT. ALSO FOLLOWS COMMANDS. NO SOB OR DISTRESS NOTED. CLEAR BREATH SOUNDS. SYMMETRICAL CHEST RISE. HR 62 RR 16 VT 477 NIF -24. AMBU BAG AT BEDSIDE. SXN'D SML AMOUNT OF THIN CLEAR SECRETIONS. RN AT BEDSIDE AND AWARE THAT PT IS TOLERATING SBT OF NOW. WILL CONTINUE TO MONITOR PATIENT.
[2020-08-24] MEDS: ASPIRIN 81 MG TAB.CHEW NG SCH (09:31)
[2020-08-24] MEDS: ENOXAPARIN 40 MG/0.4 ML SYR SUBQ SCH (09:31)
[2020-08-24] MEDS: ATORVASTATIN 20 MG TAB NG SCH (09:31)
[2020-08-24] MEDS: LACTOBACILLUS RHAMNOSUS GG 1 EACH CAP PO SCH (09:31)
[2020-08-24] MEDS: DEXMEDETOMIDINE HCL 400 MCG in NACL 0.9% 96 ML IV PRN ×2 (10:05→17:39)
--- NOTE | 2020-08-24 10:20 | NUR ---
PATIENT HAS BEEN ON SBT FOR 3 HOURS WITH NO COMPLICATIONS. PATIENT AWAKE AND ALERT, FOLLOWS COMMANDS. RT CHACE AND TARIK FLORES AT BEDSIDE. PLAN TO EXTUBATE PATIENT PER MD ORDERS.
--- NOTE | 2020-08-24 10:30 | NUR ---
EXTUBATED PATIENT WITH HELP OR RT TARIK MAS AT BEDSIDE. PLACED PT ON NASAL CANNULA AND GAVE PATIENT PRN BREATHING TREATMENT. BUT PATIENT IS ANXIOUS AND SCARED. DOES NOT WANT TO KEEP TREATMENT ON. MD RIZZO AT BEDSIDE. PATIENT IS HAVING HARD TIME BREATHING. PLACED PATIENT ON BIPAP WITH SETTINGS 12/6, RR 12, 50% FIO2. MD RIZZO AGREES ON SETTINGS. WILL CONTINUE TO MONITOR PATIENT.
--- NOTE | 2020-08-24 10:30 | NUR ---
2 RTs AND RN AT BEDSIDE. EXTUBATED PT ORDERED. OGT ALSO REMOVED. PLACE ON NASAL CANNULA. PT C/O SOB, O2SAT DOWN TO 50s. DR. RIZZO AT BEDSIDE ORDERED TO PLACE ON BIPAP FIO2 100%. PT MORE RELAXED ON BIPAP, O2SAT 98%
--- NOTE | 2020-08-24 10:35 | NUR ---
PT OFF RESTRAINTS
--- NOTE | 2020-08-24 10:50 | NUR ---
DECREASED FIO2 TO 80% PT TOLERATING WELL. SPO2 97%. PT TOLERATING BIPAP NO SOB OR DISTRESS NOTED. WILL CONTINUE TO MONITOR.
[2020-08-24] MEDS: ALBUTEROL 0.083% 2.5 MG/3 ML NEBU INH PRN ×2 (10:58→18:55)
--- NOTE | 2020-08-24 11:20 | NUR ---
DECREASED FIO2 TO 60% PT TOLERATING WELL. PT TOLERATING BIPAP WELL NO SOB OR DISTRESS NOTED. WILL CONTINUE TO MONITOR.
[2020-08-24] MEDS: FUROSEMIDE 40 MG/4 ML VIAL IVP SCH ×3 (11:53→23:13)
--- NOTE | 2020-08-24 12:46 | NUR ---
BIPAP CHECK. PT IS ASLEEP AND COMFORTABLE. DECREASED FIO2 TO 40% . PT IS TOLERATING WELL. SPO2 IS 98% RR 16 HR 67. NO SOB OR DISTRESS NOTED. WILL CONTINUE TO MONITOR.
[2020-08-24] MEDS: THERAHONEY GEL 42.5 GM TP SCH (13:04)
[2020-08-24] MEDS: GAUZE TP SCH (13:04)
--- NOTE | 2020-08-24 14:11 | NUR ---
08/24/20 RD FOLLOW UP COMPLETED PLEASE REFER TO NUTRITION ASSESSMENT UNDER CARE ACTIVITY FOR ESTIMATED NUTRITIONAL NEEDS. 1. PENDING SWALLOW EVALUATIONS AND NOTE KEEPER RECOMMENDATIONS FOR FOOD AND LIQUID CONSISTENCY 2. RECOMMEND CARDIAC DIETARY RESTRICTION DIET 3. RECOMMEND THOM BID WITH PO DIET 4. RD TO FOLLOW-UP 2-3 DAYS, HIGH RISK KIERA BOURNE RD
--- NOTE | 2020-08-24 14:22 | NUR ---
PT ON BIPAP. APPEARS COMFORTABLE, FLACC 0
[2020-08-24] MEDS: NACL 0.9% 1,000 ML IV SCH (14:47)
--- NOTE | 2020-08-24 15:10 | NUR ---
CHECKING ON PATIENT. PT IS ASLEEP AND COMFORTABLE. NO SOB OR DISTRESS NOTED. DECREASED FIO2 TO 30% SPO2 IS 97% RN AT BEDSIDE. WILL CONTINUE TO MONITOR.
[2020-08-24] MEDS: DOPamine 400 MG/D5W PREMIX 250 ML IV PRN (17:00)
--- NOTE | 2020-08-24 17:00 | NUR ---
SBP 75, TITRATED DOPAMINE BACT TO 3MCG/KG/MIN
--- NOTE | 2020-08-24 17:40 | NUR ---
PT DESATURATED TO 89% ON 30% FIO2 INCREASED FIO2 TO 40%. PT'S SPO2 IS NOW 93%. WILL CONTINUE TO MONITOR.
--- NOTE | 2020-08-24 18:43 | NUR ---
ON BIPAP 40% FIO2. NO SOB, RESPIRATIONS ARE EVEN AND UNLABORED, FLACC 0, AFEBRILE
--- NOTE | 2020-08-24 19:10 | NUR ---
RECEIVED PATIENT FROM AM SHIFT NURSE FOR CONTINUITY OF CARE. RASS -1. RESPIRATIONS EVEN, UNLABORED. CONTINUES ON BIPAP, FIO2 40%, O2SAT 98%. NO S/S RESPIRATORY DISTRESS. S1/S2 AUSCULTATED. SKIN WARM, DRY. RIGHT UPPER ARM PICC NOTED, INFUSING DOPAMINE, PRECEDEX AND FLUIDS WELL. NO C/O PAIN. NO S/S ACUTE DISTRESS. ABDOMEN SOFT, ROUND, NONTENDER. BOWEL SOUNDS ACTIVE x4 QUADRANTS. SHORE CATHETER PATENT WITH CLEAR YELLOW URINE DRAINING TO GRAVITY. PLAN OF CARE DISCUSSED. FREQUENT ROUNDS BY ALL STAFF.
--- NOTE | 2020-08-24 21:00 | NUR ---
PATIENT RESTING COMFORTABLY IN BED. NO S/S RESPIRATORY DISTRESS. NO C/O PAIN. NO S/S ACUTE DISTRESS. CALL LIGHT WITHIN REACH. FREQUENT ROUNDS MADE BY ALL STAFF. SAFETY PRECAUTIONS IN PLACE.
--- NOTE | 2020-08-24 23:00 | NUR ---
DUE MEDS GIVEN. NO S/S RESPIRATORY DISTRESS. NO C/O PAIN. NO S/S ACUTE DISTRESS. CALL LIGHT WITHIN REACH. FREQUENT ROUNDS MADE BY ALL STAFF. SAFETY PRECAUTIONS IN PLACE.
[2020-08-25] VITALS (74 sets, daily range): BP systolic 68–170; BP diastolic 46–111
[2020-08-25] MEDS: DEXMEDETOMIDINE HCL 400 MCG in NACL 0.9% 96 ML IV PRN ×3 (00:45→16:32)
--- NOTE | 2020-08-25 01:00 | NUR ---
TURNED AND REPOSITIONED. PATIENT RESTING COMFORTABLY IN BED. NO S/S RESPIRATORY DISTRESS. NO C/O PAIN. NO S/S ACUTE DISTRESS. CALL LIGHT WITHIN REACH. FREQUENT ROUNDS MADE BY ALL STAFF. SAFETY PRECAUTIONS IN PLACE.
[2020-08-25] MEDS: NYSTATIN POW 100 MU/GM 15 GM BTL TP SCH ×2 (01:11→13:18)
[2020-08-25] MEDS: VANCOMYCIN 1,750 MG in DEXTROSE 5% 500 ML IV SCH (01:26)
--- NOTE | 2020-08-25 03:00 | NUR ---
PATIENT IS ASLEEP. NO S/S RESPIRATORY DISTRESS. NO S/S ACUTE DISTRESS. CALL LIGHT WITHIN REACH. FREQUENT ROUNDS MADE BY ALL STAFF. SAFETY PRECAUTIONS IN PLACE.
[2020-08-25] MEDS: FUROSEMIDE 40 MG/4 ML VIAL IVP SCH ×3 (05:04→17:38)
--- NOTE | 2020-08-25 05:11 | NUR ---
DUE MEDS GIVEN. PATIENT RESTING COMFORTABLY IN BED. NO S/S RESPIRATORY DISTRESS. NO C/O PAIN. NO S/S ACUTE DISTRESS. CALL LIGHT WITHIN REACH. FREQUENT ROUNDS MADE BY ALL STAFF. SAFETY PRECAUTIONS IN PLACE.
--- NOTE | 2020-08-25 05:30 | NUR ---
0515 PATIENT WANTED OFF BIPAP. REMOVED MASK AND PLACED PATIENT ON 2LNC. PATIENT BECAME SHORT OF BREATH WITHIN 5 MINUTES AND SATS STARTED TO DROP. PLACED PATIENT BACK ON BIPAP WITH SAME SETTINGS.
[2020-08-25] MEDS: LEVOTHYROXINE 0.025 MG TAB NG SCH (05:33)
[2020-08-25 05:57] LABS: ALBUMIN 2.1 g/dL (3.4-5.0); ANION GAP 5.9 (8-16); CREATININE 1.4 mg/dL (0.6-1.3); POTASSIUM 3.9 mmol/L (3.5-5.1); TOTAL BILIRUBIN 0.4 mg/dL (0.0-1.0)
[2020-08-25 06:21] LABS: BASOPHILS # (AUTO) 0.1 K/uL (0.00-0.22); BASOPHILS % (AUTO) 0.8 % (0.0-2.0); EOSINOPHILS # (AUTO) 0.2 K/uL (0-0.4); EOSINOPHILS % (AUTO) 2.7 % (0.0-4.0); HEMATOCRIT 31.3 % (36-48); HEMOGLOBIN 10.1 g/dL (12.0-16.0); LYMPHOCYTES # (AUTO) 0.7 K/uL (2.5-16.5); LYMPHOCYTES % (AUTO) 9.3 % (20.5-51.1); MEAN CORPUSCULAR HEMOGLOBIN 31 pg (27-31); MEAN CORPUSCULAR HGB CONC 32 g/dL (33-37); MEAN CORPUSCULAR VOLUME 95.9 fL (80-94); MONOCYTES # (AUTO) 0.6 K/uL (0.8-1.0); MONOCYTES % (AUTO) 7.4 % (1.7-9.3); NEUTROPHILS # (AUTO) 6.1 K/uL (1.8-7.7); NEUTROPHILS % (AUTO) 79.8 % (42.2-75.2); PLATELET COUNT (AUTO) 240 K/uL (140-450); RED BLOOD CELL COUNT(AUTO) 3.27 MIL/uL (4.20-5.40); RED CELL DISTRIBUTION WIDTH 18.3 % (11.6-13.7); WHITE BLOOD COUNT (AUTO) 7.6 K/uL (4.8-10.8)
[2020-08-25] MEDS: ALBUTEROL 0.083% 2.5 MG/3 ML NEBU INH PRN ×3 (07:06→20:27)
[2020-08-25] MEDS: DOPamine 400 MG/D5W PREMIX 250 ML IV PRN ×2 (07:13→12:34)
--- NOTE | 2020-08-25 07:21 | NUR ---
RECEIVED BEDSIDE REPORT FROM ADMINISTRATIVE RESOURCES ASSOCIATE NURSE ERIC FOR CONTINUITY OF CARE. PATIENT IS RESTING COMFORTABLY ON BED, RASS 0 WITH PRECEDEX 0.4 MCG/KG/MIN. RESPIRATION EVEN, UNLABORED, ON BIPAP, IPAP 15, RATE 12, O2 35%, SPO2 AT 96%. EYES OPEN TO VOICE, ABLE TO NOD WHEN QUESTIONING, FOLLOW SOME COMMAND. NO SIGNS OF ACUTE DISTRESS NOTED. KALPESH PICC LINE, CLEAN AND DRY, RUNNING NS AT 50 ML/HR, PRECEDEX 0.4 MCG/KG/HR, DOPAMINE 5 MCG/KG/MIN. SACRAL WOUND AND WOUND ON LEGS NOTED, SKIN WARM TO TOUCH, ABDOMEN SOFT, ROUND, NONTENDER. BOWEL SOUNDS ACTIVE x4 QUADRANTS. SHORE CATHETER IN PLACE, DRAINING WITH GRAVITY, CLEAR YELLOW URINE IN BED NOTED. PILLOW PLACES TO OFFLOAD PRESSURE. NPO MAINTAIN AND PENDING ON SWALLOW EVALUATION. SAFETY MEASURES IN PLACE. BED IN LOW POSITION, HOB ELEVATED 35 DEGREE, AND BED LOCKED.
--- NOTE | 2020-08-25 08:49 | NUR ---
RECEIVED CALL FROM PATIENT'S MOTHER KHRIS, UPDATED HER WITH PATIENT'S CURRENT CONDITION AND ANSWERED ALL HER QUESTIONS. KHRIS WAS AWARE OF PATIENT'S CONDITION AND PLAN OF CARE.
[2020-08-25] MEDS: ASPIRIN 81 MG TAB.CHEW NG SCH (09:00)
[2020-08-25] MEDS: LACTOBACILLUS RHAMNOSUS GG 1 EACH CAP PO SCH (09:00)
[2020-08-25] MEDS: ATORVASTATIN 20 MG TAB NG SCH (09:00)
[2020-08-25] MEDS: ENOXAPARIN 40 MG/0.4 ML SYR SUBQ SCH (09:23)
--- NOTE | 2020-08-25 09:24 | NUR ---
STARTED A NEW BAG OF PRECEDEX, CONTINUE RUNNING AT 0.4 MCG/KG/HR, PATIENT IS RASS 0, LYING COMFORTABLY ON BED, AROUSABLE TO VOICE, NOD WHEN ASKING HER QUESTIONS. ADMINISTERED LOVENOX VIA SUBQ, UNABLE TO ADMINISTER PO MEDS DUE TO PATIENT IS ON BIPAP, ASPIRATION PRECAUTION AND SWALLOW EVALUATION IS PENDING. PROVIDED AM HYGIENE CARE, CHG BATH, SHORE CARE. WITH ASSIST, REPOSITIONED PATIENT, PILLOWS PLACED TO OFFLOAD PRESSURE, PATIENT TOLERATED FAIR. SAFETY MEASURES IN PLACE. BED IN LOW POSITION, AND BED LOCKED.
--- NOTE | 2020-08-25 10:11 | NUR ---
DR RIZZO IS ASSESSING PATIENT AT BEDSIDE.
[2020-08-25] MEDS: NACL 0.9% 1,000 ML IV SCH (10:28)
--- NOTE | 2020-08-25 10:43 | NUR ---
REVIEWED PULMONARY STATUS WITH DR. VICTOR M OCAMPO: OK TO TRY HIGH FLOW NASAL CANNULA DURING DAYS TOLERATED; KEEP SATURATION GREATER THAN 90%
--- NOTE | 2020-08-25 11:40 | NUR ---
REPOSITIONED PATIENT, PILLOWS PLACED TO OFFLOAD PRESSURES, PATIENT TOLERATED FAIR. ON BIPAP, SPO2 AT 96%, NO SIGNS OF SKIN BREAKDOWN AROUND BIPAP. PATIENT IS RESTING ON BED, NO SIGNS OF ACUTE DISTRESS NOTED. SAFETY MEASURES IN PLACE.
--- NOTE | 2020-08-25 12:15 | NUR ---
REMOVED FROM BIPAP TO MASK PLACED ON A VAPOTHERM HIGH FLOW NASAL CANNULA (HFNC) PLUGGED INTO RED OUTLET TOLERATING WELL NO COMPLICATIONS NOTED AT THIS TIME FIO2 100% FLOW 40 LPM TEMP 36.0 DEGRESS CENTIGRADE CHEMIST STEROIDS TO MONITOR LOC AWAKE AND ALERT VERBALLY RESPONSIVE TO CHEMIST STEROIDS VERBAL COMMANDS EDUCATION PROVIDED TO PATIENT WITH ACKNOWLEDGEMENT ON THE USE/PURPOSE OF HFNC PLACED CALL LIGHT CONTROL IN LEFT HAND
--- NOTE | 2020-08-25 12:34 | NUR ---
ADMINISTERED SCHEDULED LASIX PER MD ORDER. RT PLACED PATIENT ON HIGH FLOW 40 LPM FIO2 100%, SPO2 92% AT THIS TIME. PATIENT IS AWAKE AND RESTING ON BED COMFORTABLY. DENIED PAIN, SOB AND ANY DISTRESS. SAFETY MEASURES IN PLACE.
[2020-08-25] MEDS: MIDODRINE 5 MG TAB PO SCH ×2 (13:00→18:41)
[2020-08-25] MEDS: GAUZE TP SCH (13:18)
[2020-08-25] MEDS: THERAHONEY GEL 42.5 GM TP SCH (13:18)
--- NOTE | 2020-08-25 13:21 | NUR ---
PATIENT DOES NOT TOLERATE BEDSIDE SWALLOW EVALUATION, UNABLE TO ADMINISTER PO MIDODRINE. WITH ASSIST, PROVIDED WOUND CARE, APPLIED THERAHONEY AND SECURED WITH HEART SHAPE DRESSING ON SACRAL, NYSTATIN POWDERS APPLIED TO UNDER BREASTS, ABDOMINAL FOLDS AND GROINS, REPOSITIONED PATIENT, PILLOWS PLACED TO OFFLOAD PRESSURE, PATIENT TOLERATED FAIR. PATIENT REMAINS ON HIGH FLOW 40 LPM FIO2 100% SPO2 AT 100% AT THIS TIME. SAFETY MEASURES IN PLACE. BED IN LOW POSITION, HOB ELEVATED 30 DEGREE, CALL LIGHT WITHIN REACH, AND BED LOCKED.
--- NOTE | 2020-08-25 14:58 | NUR ---
DR LUX IS ROUNDING ON PATIENT AT BEDSIDE.
--- NOTE | 2020-08-25 15:40 | NUR ---
PATIENT DESATURATING TO 60% WHILE REPOSITIONING, RT MARCUS NOTIFIED AND PLACED PATIENT BACK ON BIPAP: IPAP 15, RATE 12, FIO2 35%, SPO2 WENT BACK TO 96% AT THIS TIME. PATIENT IS GETTING BREATHING TREATMENT. POSITIONED PATIENT COMFORTABLY, PILLOWS PLACED TO OFFLOAD PRESSURE, HEEL PROTECTORS APPLIED ON BILATERAL HEELS. INTER-DRY CLOTHES PLACED UNDER BREASTS AND ABDOMINAL FOLDS. PATIENT IS RESTING ON BED AT THIS TIME. SAFETY MEASURES IN PLACE. BED IN LOW POSITION, CALL LIGHT WITHIN REACH, HOB ELEVATED 30 DEGREE, AND BED LOCKED.
--- NOTE | 2020-08-25 17:05 | NUR ---
PATIENT IS RESTING ON BED COMFORTABLY, ON BIPAP, SPO2 97% AT THIS TIME. DENIED OF ANY DISTRESS. SAFETY MEASURES IN PLACE.
--- NOTE | 2020-08-25 17:38 | NUR ---
SCHEDULED LASIX GIVEN, PATIENT IS AWAKE AND WATCHING TV ON BED AT THIS TIME. ON BIPAP SPO2 97% AT THIS TIME. NO SIGNS OF ACUTE DISTRESS NOTED. SAFETY MEASURES IN PLACE. BED IN LOW POSITION, CALL LIGHT WITHIN REACH, HOB ELEVATED 30 DEGREE, AND BED LOCKED.
--- NOTE | 2020-08-25 18:03 | NUR ---
ASLEEP RESTING WELL GOOD CHEST RISE REMOVED FORM BIPAP TO MASK PLACED ON HIGH FLOW NASAL CANNULA (HFNC) NOTED JACQUI/RN NOTIFIED
--- NOTE | 2020-08-25 18:42 | NUR ---
UNABLE TO ADMINISTER SCHEDULE PO MIDODRINE DUE TO PATIENT DOES NOT TOLERATE BEDSIDE SWALLOW EVALUATION AND DROWSINESS; ASPIRATION PRECAUTION. PATIENT IS RESTING ON BED COMFORTABLY ON HIGH FLOW 35 LPM FIO2 100% SPO2 100% AT THIS TIME. NO SIGNS OF ACUTE DISTRESS NOTED. SAFETY MEASURES IN PLACE.
--- NOTE | 2020-08-25 19:53 | NUR ---
RECEIVED REPORT FROM DAYSPRFT NURSE. PT AWAKE AND DROWSY. OPENS EYES TO NAME, ABLE TO STATE SHE IS IN THE HOSPITAL. ALL OTHER WORDS ARE INCOMPREHENSIBLE. PT HAS HX OF MILD MENTAL DELAY. PT ABLE TO ANSWER YES AND NO QUESTIONS. ABLE TO FOLLOW SOME SIMPLE COMMANDS. PERRL, 3 MM BRISK. ON HIGH FLOW NASAL CANNULA, FI02 100%, 35L, TEMP 36 DEGREES. LUNG SOUNDS WHEEZING ON EXPIRATORY. EQUAL CHEST RISE AND FALL. S1S2. KALPESH PICC LINE IN PLACE, PRECEDEX 0.4 MCG/KG/HR AND DOPAMINE 4 MCG/KG/MIN, DRY WEIGHT 149 KG, NS @ 50ML/HR. SKIN WARM AND DRY, AFEBRILE. SKIN NOT INTACT, SMALL PRESSURE WOUNDS TO RIGHT BUTTOCK, DRESSING DRY AND INTACT. BLISTERS TO BILATERAL LOWER EXTREMITIES, WRAPPING IN KERLIX ROLL. THICK SCAR TISSUE NOTED AT CHEST. CLOSED WOUNDS. ABDOMEN LARGE AND NONTENDER. BOWEL SOUNDS HYPOACTIVE. SHORE CATHETER IN PLACE, CLEAR YELLOW URINE NOTED. BED LOCKED AND IN LOWEST POSITION. SIDE RAILS UP, HOB GREATER THAN 35 DEGREES/. PT ORIENTED TO TREATMENT PLAN AND ORIENTED TO CALL LIGHT, WITHIN REACH. PT DENIES PAIN. WILL CONTINUE TO MONITOR.
--- NOTE | 2020-08-25 20:30 | NUR ---
RECEIVED PT ON HFNC TEMP. 3, 35L, AND FiO2 100%.
--- NOTE | 2020-08-25 20:32 | NUR ---
PT SLIGHTLY DESATTING TO LOW 80%, PT HAS MOUTH WIDE OPEN-MOUTH BREATHING, WHEN INSTRUCTED TO CLOSE MOUTH, PT SP02 INCREASES TO 99%. RT MADE AWARE, INCREASED TO 40L. WILL CONTINUE TO MONITOR.
--- NOTE | 2020-08-25 20:33 | NUR ---
RN REPORTED THAT PT IS DESATURATING. AT BEDSIDE, PT SLEEPING. HX OF JAYDON (NO CPAP AT HOME). WHEEZING BREATH SOUNDS ON AUSCULTATION. HHN PRN TX INDICATED AND WAS GIVEN AT THIS TIME. PT TOLERATED TX WELL. NO ADVERSE REACTION. TITRATED HFNC LITER FLOW FROM 35 TO 40L. SPO2 IMPROVED 92% TO 100% WHILE PT IS SLEEPING. PT TOLERATING WELL AT THIS TIME. WILL CONTINUE TO MONITOR PT AND INITIATE BiPAP OR CPAP IF PT DOES NOT TOLERATED CURRENT INTERVENTION.
--- NOTE | 2020-08-25 23:22 | NUR ---
PROVIDED ORAL CARE FOR PATIENT, 100% TOTAL ASSISTANCE NEEDED. PT ABLE TO FOLLOW COMMANDS AND NO SIGNS OF DIFFICULTY BREATHING. PER FORMED BED SIDE SWALLOW EVAL. PT ABLE TO DRINK THE WHOLE 240ML JUICE BOX AND 5 SMALL SPOONFULS OF APPLE SAUCE. DENIES PAIN, NO COUGHING OR DESATTING NOTED. WILL ENDORSE TO DAYSHIFT NURSE. HELD PRECEDEX, SEE IV SPREAD SHEET. TURNED AND REPOSITIONED, ALL NEEDS MET AT THIS TIME.
[2020-08-26] VITALS (69 sets, daily range): BP systolic 63–138; BP diastolic 33–95
[2020-08-26] MEDS: FUROSEMIDE 40 MG/4 ML VIAL IVP SCH ×2 (00:13→06:09)
[2020-08-26] MEDS: NYSTATIN POW 100 MU/GM 15 GM BTL TP SCH ×2 (00:14→12:49)
--- NOTE | 2020-08-26 01:08 | NUR ---
PT IS STILL ON HFNC AND CURRENTLY TOLERATING WELL. SPO2 95%. PT IS SLEEPING. NO RESPIRATORY DISTRESS NOTED AT THIS TIME. WILL CONTINUE TO MONITOR PT.
[2020-08-26] MEDS: DOPamine 400 MG/D5W PREMIX 250 ML IV PRN ×2 (01:37→19:17)
--- NOTE | 2020-08-26 03:10 | NUR ---
EMPTIED 2300ML FROM SHORE. PT NOT IN DISTRESS. DENIES PAIN AND SOB. SAFETY MEASURES IN PLACE.
--- NOTE | 2020-08-26 03:20 | NUR ---
TITRATED FiO2 FROM 85% TO 75%. SPO2 100%. PT IS TOLERATING WELL. RN NOTIFIED. WILL CONTINUE TO MONITOR PT.
[2020-08-26 05:00] LABS: BASOPHILS # (AUTO) 0.1 K/uL (0.00-0.22); BASOPHILS % (AUTO) 0.9 % (0.0-2.0); EOSINOPHILS # (AUTO) 0.3 K/uL (0-0.4); EOSINOPHILS % (AUTO) 4.7 % (0.0-4.0); HEMATOCRIT 30.4 % (36-48); HEMOGLOBIN 9.8 g/dL (12.0-16.0); LYMPHOCYTES # (AUTO) 0.5 K/uL (2.5-16.5); LYMPHOCYTES % (AUTO) 8.6 % (20.5-51.1); MEAN CORPUSCULAR HEMOGLOBIN 31 pg (27-31); MEAN CORPUSCULAR HGB CONC 32 g/dL (33-37); MEAN CORPUSCULAR VOLUME 94.9 fL (80-94); MONOCYTES # (AUTO) 0.4 K/uL (0.8-1.0); MONOCYTES % (AUTO) 7.7 % (1.7-9.3); NEUTROPHILS # (AUTO) 4.5 K/uL (1.8-7.7); NEUTROPHILS % (AUTO) 78.1 % (42.2-75.2); PLATELET COUNT (AUTO) 238 K/uL (140-450); RED BLOOD CELL COUNT(AUTO) 3.21 MIL/uL (4.20-5.40); RED CELL DISTRIBUTION WIDTH 17.9 % (11.6-13.7); WHITE BLOOD COUNT (AUTO) 5.7 K/uL (4.8-10.8)
--- NOTE | 2020-08-26 05:29 | NUR ---
SPONGE BATH, SHORE CARE, AND ORAL CARE PROVIDED. PT TOLERATED FAIRLY. PT STARTS CRYING AND REFUSING SHORE CARE AND CLEANING AT WOUNDS. PROVIDED PT WITH EDUCATION ABOUT WOUND CARE AND PREVENTING SPREAD OF INFECTION. PERFORMED ALL TREATMENT WITH SAFETY MEASURES IN PLACE. PT NOT IN DISTRESS. OFFLOADED PRESSURE AREAS, POSITIONED PT IN POSITION OF COMFORT. HOB GREATER THAN 45 DEGREES, SIDE RAILS UP, CALL LIGHT WITHIN REACH.
[2020-08-26 05:38] LABS: MAGNESIUM 2.1 mg/dL (1.8-2.4); PHOSPHORUS 5.1 mg/dL (2.5-4.9)
[2020-08-26 05:41] LABS: CREATININE 1.2 mg/dL (0.6-1.3); POTASSIUM 3.8 mmol/L (3.5-5.1); TOTAL BILIRUBIN 0.4 mg/dL (0.0-1.0)
[2020-08-26 05:45] LABS: CARBON DIOXIDE 40.8 mmol/L (21-32)
[2020-08-26] MEDS: MIDODRINE 5 MG TAB PO SCH ×3 (06:09→18:28)
[2020-08-26] MEDS: LEVOTHYROXINE 0.025 MG TAB NG SCH (06:09)
--- NOTE | 2020-08-26 06:10 | NUR ---
PT ABLE TO DRINK ANOTHER JUICE WITHOUT COUGHING OR CHOKING. ADMINISTERED PO MEDS WITH APPLE SAUCE. NO ISSUES WITH ADMINISTRATION. DOPAMINE NOW AT 5 MCG/KG/MIN. NS IVF @ 50ML/HR. PRECEDEX HELD. SHORE OUTPUT 2900ML. CALL LIGHT WITHIN REACH. HIGH FLOW NASAL CANNULA 40L, 100% FI02. WILL ENDORSE TO DAYSHIFT NURSE.
--- NOTE | 2020-08-26 07:25 | NUR ---
RECEIVED REPORT FROM STROKE BELT SANDER OPERATOR NURSE. ON HIGH FLOW [employer] CANNULA 40L 100% FIO2. DRY WEIGHT 149KG. AOX2, ORIENTED TO PERSON AND PLACE. ABLE TO FOLLOW SIMPLE COMMANDS. RESPIRATIONS EVEN AND UNLABORED, NO SOB OR RESPIRATORY DISTRESS. KALPESH PICC LINE RUNNING DOPAMINE AT 5MCG/KG/HR, NS AT 50CC/HR. SKIN NOT INTACT, WITH R BUTTOCK UNSTAGEABLE, MULTIPLE BLISTER ON BLE. SHORE DRAINING VIA GRAVITY. SAFETY MEASURES IN PLACE. WILL CONTINUE TO MONITOR
[2020-08-26] MEDS: NACL 0.9% 1,000 ML IV SCH (07:30)
--- NOTE | 2020-08-26 08:11 | NUR ---
PAGED REGARDING ABG RESULTS.
[2020-08-26] MEDS: ALBUTEROL 0.083% 2.5 MG/3 ML NEBU INH PRN (08:43)
[2020-08-26] MEDS: ASPIRIN 81 MG TAB.CHEW NG SCH (08:43)
[2020-08-26] MEDS: ENOXAPARIN 40 MG/0.4 ML SYR SUBQ SCH (08:43)
[2020-08-26] MEDS: LACTOBACILLUS RHAMNOSUS GG 1 EACH CAP PO SCH (08:43)
[2020-08-26] MEDS: ATORVASTATIN 20 MG TAB NG SCH (08:43)
--- NOTE | 2020-08-26 08:45 | NUR ---
DUE MEDS GIVEN CRUSHED AND MIXED WITH APPLE SAUCE. TOLERATED WELL
--- NOTE | 2020-08-26 10:04 | NUR ---
PAGED A SECOND TIME. REGARDING ABG RESULTS.
--- NOTE | 2020-08-26 10:08 | NUR ---
ABG RESULTS GIVEN TO PHYSICIAN STATES TO MAINTAIN PT ON HIGH FLOW AND PT SHOULD BE ON BIPAP FOR NOC.
--- NOTE | 2020-08-26 10:44 | NUR ---
SEEN BY DR RIZZO, WITH NEW ORDERS.
--- NOTE | 2020-08-26 11:58 | NUR ---
WOUND CARE RE-EVALUATION NOTE: SKIN ASSESSMENT DONE WITH PRIMARY RN, UNABLE TO TAKE PHOTO DUE TO PT. EASILY DE SAT WHEN TURN AND REPOSITION. PT. IS AAX4 DURING ASSESSMENT. PT. REFUSED TO TURN FOR SKIN ASSESSMENT AND WOUND CARE. AFTER ATTEMPT X2 OF EXPLANATION RISK AND BENEFIT OF SKIN CARES AND INTERVENTIONS PT. AGREEABLE AND ABLE TO HOLD THE SIDE RAILS WHEN TURN TO SIDE. POC DISCUSSED TO PT. AND NEED REINFORCEMENT. POC DISCUSSED WITH PRIMARY RN, WOUNDS RESPONDING TO CURRENT TX. PLAN AND WILL CONTINUE, NO NEED FOR DEBRIDEMENT AT THIS TIME. INTEGUMENTARY: -INTERTRIGO TO BILATERAL UNDER BREAST, LOWER ABDOMINAL FOLDS AND GROINS, AREAS DRY AND RESPONDING TO THE INTERVENTIONS -BLE SEVERE XEROSIS SKIN WITH NO OPEN ACTIVE WOUND, MULTIPLE BLISTER LIKE BUMPS, ORANGE SKIN, MULTIPLE DRY SCABS. NO CHANGE OF CONDITION -PRESSURE INJURIES UN-STAGEABLE TO RIGHT ISCHIUM 5X5X0.1CM WITH WOUND BED 80% GRANULATION TISSUE AND 20 % SCATTER BROWN MOIST TISSUE, NO ODOR, WOUND EDGE FLAT, ALFA WOUND SKIN PEELING MOIST SKIN AND SURROUNDING REDNESS TISSUE RESOLVED - BILATERAL HEEL BLANCHABLE REDNESS RESOLVED, SKIN INTACT. OFFLOADING
--- NOTE | 2020-08-26 12:30 | NUR ---
PT ASLEEP IN BED, ON HIGH FLOW 02 35L 90% FIO2. FLACC 0, RESPIRATIONS ARE EVEN AND UNLABORED
[2020-08-26] MEDS: ALBUMIN HUMAN 25% 100 ML IV SCH ×2 (12:48→20:35)
[2020-08-26] MEDS: GAUZE TP SCH (12:48)
[2020-08-26] MEDS: THERAHONEY GEL 42.5 GM TP SCH (12:49)
--- NOTE | 2020-08-26 14:00 | NUR ---
PT AWAKE IN BED, WATCHING TV, NO C/O PAIN NO SOB
--- NOTE | 2020-08-26 14:02 | NUR ---
08/26/20 RD FOLLOW UP COMPLETED PLEASE REFER TO NUTRITION ASSESSMENT UNDER CARE ACTIVITY FOR ESTIMATED NUTRITIONAL NEEDS. 1. PENDING SWALLOW EVALUATIONS AND INDUCTION COORDINATION ENGINEER RECOMMENDATIONS FOR FOOD AND LIQUID CONSISTENCY 2. RECOMMEND CARDIAC DIETARY RESTRICTION DIET 3. RECOMMEND MVI DAILY AND VITAMIN C [address] TO FOLLOW-UP 2-3 DAYS, HIGH RISK KIERA BOURNE, RD
--- NOTE | 2020-08-26 17:00 | NUR ---
PT'S MOTHER CALLED. UPDATE AND PLAN OF CARE EXPLAINED. TALKED TO PT ON PHONE
--- NOTE | 2020-08-26 18:35 | NUR ---
ASSISTED PT WITH DINNER. ON FULL LIQUID DIET, TOLERATED WEALL
--- NOTE | 2020-08-26 19:30 | NUR ---
RECIEVED BEDSIDE ENDORSEMENT FROM DAY SHIFT RN, PT LYING IN BED WATCHING TV, A&0X2, ABLE TO MAKE NEEDS KNOWN AND FOLLOWS COMMAND, SR ON MONITOR, PT ON HF NC @35L/MIN FIO2 85%, ABD SOFT AND NON TENDER TO TOUCH, PT ABLE TO SWALLOW LIQUIDS, KALPESH PICC INFUSING DOPAMINE AND NS, FC IN PLACE DRAINING VIA GRAVITY, SKIN WARM AND DRY NON INTACT, SEE WOUND ASSESSMENT DOC, PT AFEBRILE, SHOWING NO SIGNS OF ACUTE DISTRES, SAFETY MEASURSES IN PLACE, WILL CONTINUE WITH CURRENT POC
--- NOTE | 2020-08-26 20:06 | NUR ---
PT SEEN AND ASSESSED. PT IS ON HFNC. SETTINGS: TEMP. 36, 35L, AND FiO2 85%. PT IS TOLERATING WELL. WILL CONTINUE TO MONITOR PT.
--- NOTE | 2020-08-26 21:05 | NUR ---
PT REFUSED TO USE BiPAP. RISK AND BENEFIT WERE EXPLAINED TO PT. PT IS IN NO RESPIRATORY DISTRESS AT THIS TIME. SPO2 100% ON HFNC 35L AND FiO2 85%. WILL CONTINUE TO MONITOR PT.
--- NOTE | 2020-08-26 21:10 | NUR ---
ADMINISTERED 2100H MEDICAITON PER ORDERED, PT RESTING AND SHOWING NO SIGNS OF ACUTE DISTRESS
[2020-08-27] VITALS (32 sets, daily range): BP systolic 75–155; BP diastolic 46–104
--- NOTE | 2020-08-27 00:19 | NUR ---
REPOSITIONED PT, PT WATCHING TV AND SHOWING NO SIGNS OF ACUTE DISTRESS
[2020-08-27] MEDS: NYSTATIN POW 100 MU/GM 15 GM BTL TP SCH ×2 (00:53→13:33)
[2020-08-27] MEDS: NACL 0.9% 1,000 ML IV SCH ×2 (02:25→19:57)
--- NOTE | 2020-08-27 03:10 | NUR ---
PT RESTING AND WATCHING TV, NO SIGNS OF ACUTE DISTRESS
--- NOTE | 2020-08-27 03:25 | NUR ---
TITRATED FiO2 FROM 85% TO 75%. SPO2 100%. PT IS TOLERATING WELL. RN NOTIFIED. WILL CONTINUE TO MONITOR PT.
[2020-08-27] MEDS: DOPamine 400 MG/D5W PREMIX 250 ML IV PRN ×3 (03:42→19:59)
[2020-08-27] MEDS: ALBUMIN HUMAN 25% 100 ML IV SCH (04:05)
--- NOTE | 2020-08-27 04:42 | NUR ---
ADMINISTERED 0500H MEDICATION PER MD ORDERS
[2020-08-27] MEDS: MIDODRINE 5 MG TAB PO SCH ×3 (06:06→19:00)
[2020-08-27] MEDS: LEVOTHYROXINE 0.025 MG TAB NG SCH (06:06)
--- NOTE | 2020-08-27 06:16 | NUR ---
ADMINISTERED 0630H AND 0700H MEDICAITONS PER MD ORDERS
[2020-08-27 06:22] LABS: BASOPHILS % (AUTO) 0.9 % (0.0-2.0); EOSINOPHILS # (AUTO) 0.3 K/uL (0-0.4); EOSINOPHILS % (AUTO) 5.9 % (0.0-4.0); HEMATOCRIT 28.8 % (36-48); HEMOGLOBIN 9.3 g/dL (12.0-16.0); LYMPHOCYTES # (AUTO) 0.4 K/uL (2.5-16.5); LYMPHOCYTES % (AUTO) 8.6 % (20.5-51.1); MEAN CORPUSCULAR HEMOGLOBIN 31 pg (27-31); MEAN CORPUSCULAR HGB CONC 32 g/dL (33-37); MEAN CORPUSCULAR VOLUME 95.3 fL (80-94); MONOCYTES # (AUTO) 0.5 K/uL (0.8-1.0); NEUTROPHILS # (AUTO) 3.8 K/uL (1.8-7.7); NEUTROPHILS % (AUTO) 74.6 % (42.2-75.2); PLATELET COUNT (AUTO) 222 K/uL (140-450); RED BLOOD CELL COUNT(AUTO) 3.02 MIL/uL (4.20-5.40); RED CELL DISTRIBUTION WIDTH 17.5 % (11.6-13.7); WHITE BLOOD COUNT (AUTO) 5.1 K/uL (4.8-10.8)
[2020-08-27 06:52] LABS: ALBUMIN 2.8 g/dL (3.4-5.0); ANION GAP 2.6 (8-16); CREATININE 1.1 mg/dL (0.6-1.3); POTASSIUM 3.6 mmol/L (3.5-5.1); TOTAL BILIRUBIN 0.5 mg/dL (0.0-1.0)
--- NOTE | 2020-08-27 07:20 | NUR ---
RECEIVED REPORT FROM DIRECTOR OF RESTAURANT NURSEANTONIA. PATIENT SUPINE IN BED, AWAKE AND ALERT TO NAME. WATCHING TV, ABLE TO MAKE NEEDS KNOWN. BREATHING EVEN AND UNLABORED, SPO2 90% ON HI FLOW NC, 35 LPM, 65% FIO2. SHORE CATHETER IN PLACE, DRAINING TO GRAVITY. KALPESH PICC, CLEAN DRY AND INTACT. INFUSING NS @ 50 ML/HR, DOPAMINE @ 6 MCG/KG/MIN. CALL LIGHT WITHIN REACH, HOT WIRE GLASS TUBE CUTTER IN PLACE, SAFETY MEASURES IN PLACE.
--- NOTE | 2020-08-27 07:26 | NUR ---
ENDORSED TO DAY SHIFT RN FOR CONTINUITY OF CARE
--- NOTE | 2020-08-27 08:00 | NUR ---
LABORED BREATHING WITH ACCESSORY MUSCLE USE NOTED WITH 39% SPO2. RT CALLED, WILL CONTINUE TO MONITOR.
--- NOTE | 2020-08-27 08:39 | NUR ---
GOT CALL FROM NURSE ETHEL ON PT. ASSESS PT ON THE HIGH FLOW SATURATION IN 40'S, INCREASE FIO2 TO 100% AND DRAWN AN ABG ON HFNC. PAGED DR RIZZO.
--- NOTE | 2020-08-27 08:40 | NUR ---
PATIENT PLACED ON BIPAP, SATURATION INCREASED TO 94% SPO2. DR RIZZO PAGED, AWAITING CALL BACK. WILL CONTINUE TO MONITOR.
--- NOTE | 2020-08-27 08:45 | NUR ---
ATTEMPTED TO SEE PATIENT FOR PHYSICAL THERAPY EVALUATION HOWEVER UPON PT ENTRY, PATIENT WAS DESATURATION WITH RN AND RT PRESENT IN ROOM. LABORED BREATHING NOTED; PLACED BACK ON BIPAP. WILL HOLD PHYSICAL THERAPY EVALUATION; FOLLOW UP TOMORROW IF APPROPRIATE.
[2020-08-27] MEDS: MULTIVITAMIN/MINERALS 1 TAB PO SCH (09:00)
[2020-08-27] MEDS: ASPIRIN 81 MG TAB.CHEW NG SCH (09:00)
[2020-08-27] MEDS: ATORVASTATIN 20 MG TAB NG SCH (09:00)
[2020-08-27] MEDS: LACTOBACILLUS RHAMNOSUS GG 1 EACH CAP PO SCH (09:00)
[2020-08-27] MEDS: ASCORBIC ACID 500 MG/5 ML ORASYR PO SCH (09:00)
--- NOTE | 2020-08-27 09:06 | NUR ---
DR RIZZO RETURNED CALL. PER DR RIZZO, DRAW ANOTHER ABG IN AN HOUR OR SO.
[2020-08-27] MEDS: VANCOMYCIN 1,000 MG in DEXTROSE 5% 250 ML IV SCH (09:14)
[2020-08-27] MEDS: ENOXAPARIN 40 MG/0.4 ML SYR SUBQ SCH (09:14)
--- NOTE | 2020-08-27 09:15 | NUR ---
ADMINISTERED SCHEDULED LOVENOX AND VANCOCIN PER MD ORDER. PO MEDS ON HOLD PATIENT IS S/P EXTUBATION, PENDING SWALLOW EVAL TODAY. PATIENT IS RESTING IN BED, FATIGUED, WILL REEVALUATE AND COLLABORATE WITH MD IN REGARDS TO TODAY'S SCHEDULED PO MEDS. MED EDUCATION PROVIDED TO PATIENT, REINFORCEMENT NEEDED.
--- NOTE | 2020-08-27 10:40 | NUR ---
DR RIZZO ROUNDING ON PATIENT AT BEDSIDE. RT AT BEDSIDE DRAWING ABGS.
--- NOTE | 2020-08-27 10:40 | NUR ---
REPORTED ABG RESULTS TO DR RIZZO. ORDERED TO CONTINUE BIPAP, BREAKS ON HIGH FLOW TOLERATED. ALSO, RELAY TO FOOT DRILL OPERATOR TO PLACE PT ON BIPAP AT NIGHT INDEFINITELY.
--- NOTE | 2020-08-27 10:44 | NUR ---
PER DR RIZZO, HOLD PO MEDS UNTIL PATIENT IS STABLE ENOUGH TO BE ON HI FLOW NC WITH STABLE SPO2 OR UNTIL SWALLOW EVAL.
--- NOTE | 2020-08-27 10:51 | NUR ---
PER DR RIZZO, FOLLOWING 10:15 ABG RESULTS, CONTINUE WITH PATIENT ON BIPAP WITH HIGH FLOW NC BREAKS TOLERATED. RT AT BEDSIDE AND AWARE. RT REDUCED BIPAP FIO2 TO 70%.
[2020-08-27] MEDS: GAUZE TP SCH (13:00)
[2020-08-27] MEDS: THERAHONEY GEL 42.5 GM TP SCH (13:34)
--- NOTE | 2020-08-27 13:39 | NUR ---
ADMINISTERED WOUND CARE PER ORDERS, SEE WOUND CARE NOTES. PO MEDS CONTINUE ON HOLD PER DR RIZZO. MED EDUCATION PROVIDED, REINFORCEMENT NEEDED. PATIENT REPOSITIONED AND OFFLOADED PRESSURE WITH PILLOWS. AUTOMATIC SPREADER OPERATOR IN PLACE. SAFETY MEASURES IN PLACE.
--- NOTE | 2020-08-27 19:15 | NUR ---
ENDORSED TO NIGHTSHIFT NURSE FOR CONTINUITY OF CARE.
--- NOTE | 2020-08-27 19:30 | NUR ---
ASSUMED RESPONSIBILITY OF CARE AT THIS TIME.
--- NOTE | 2020-08-27 20:24 | NUR ---
CALLED TO BEDSIDE. PLACED PT ON HFNC FOR PT TO EAT. PT TOLERATED HFNC FOR FEW MINUTES. PLACED PT BACK ON BiPAP. SPO2 IMPROVED. WILL CONTINUE TO MONITOR PT.
--- NOTE | 2020-08-27 22:00 | NUR ---
CONTINUES ON BIPAP. RT ROUNDING FREQUENTLY. FLACC 0
--- NOTE | 2020-08-27 23:00 | NUR ---
FiO2 TITRATED BACK TO 70%. SPO2 100%. PT TOLERATING WELL AT THIS TIME. RN NOTIFIED. WILL CONTINUE TO MONITOR PT.
[2020-08-28] VITALS (33 sets, daily range): BP systolic 91–122; BP diastolic 49–91
--- NOTE | 2020-08-28 | NUR ---
REPOSITIONED PT WITH PRESSURE AREAS OFFLOADED. HIGH FOWLERS POSITION NOTED D/T SOB WHILE SUPINE.
[2020-08-28] MEDS: NYSTATIN POW 100 MU/GM 15 GM BTL TP SCH ×2 (01:00→13:48)
--- NOTE | 2020-08-28 02:00 | NUR ---
PERICARE PROVIDED. TOLERATED WELL. WILL CONT TO MONITOR
--- NOTE | 2020-08-28 04:00 | NUR ---
BED BATH PROVIDED. TOLERATED WELL. CONTINUES ON BIPAP SATING >92%. FLACC 0.
[2020-08-28 05:30] LABS: BASOPHILS % (AUTO) 0.3 % (0.0-2.0); EOSINOPHILS # (AUTO) 0.2 K/uL (0-0.4); EOSINOPHILS % (AUTO) 3.1 % (0.0-4.0); HEMATOCRIT 29.6 % (36-48); HEMOGLOBIN 9.4 g/dL (12.0-16.0); LYMPHOCYTES # (AUTO) 0.6 K/uL (2.5-16.5); LYMPHOCYTES % (AUTO) 11.2 % (20.5-51.1); MEAN CORPUSCULAR HEMOGLOBIN 31 pg (27-31); MEAN CORPUSCULAR HGB CONC 32 g/dL (33-37); MEAN CORPUSCULAR VOLUME 96.7 fL (80-94); MONOCYTES # (AUTO) 0.5 K/uL (0.8-1.0); MONOCYTES % (AUTO) 10.6 % (1.7-9.3); NEUTROPHILS # (AUTO) 3.8 K/uL (1.8-7.7); NEUTROPHILS % (AUTO) 74.8 % (42.2-75.2); PLATELET COUNT (AUTO) 241 K/uL (140-450); RED BLOOD CELL COUNT(AUTO) 3.06 MIL/uL (4.20-5.40); RED CELL DISTRIBUTION WIDTH 17.7 % (11.6-13.7)
[2020-08-28] MEDS: LEVOTHYROXINE 0.025 MG TAB NG SCH (06:17)
[2020-08-28 06:18] LABS: ALBUMIN 2.9 g/dL (3.4-5.0); ANION GAP 4.1 (8-16); CREATININE 1.2 mg/dL (0.6-1.3); POTASSIUM 3.8 mmol/L (3.5-5.1); TOTAL BILIRUBIN 0.5 mg/dL (0.0-1.0)
[2020-08-28 06:21] LABS: CARBON DIOXIDE 41.7 mmol/L (21-32)
--- NOTE | 2020-08-28 07:03 | NUR ---
RECEIVED PT ON BIPAP. SETTINGS 02/12, R12, FIO2 100%. PT WAKES UP WHEN SPOKEN TO. PROTECTA GEL IS UNDER MASK FOR SKIN PROTECTION. BIPAP ALARMS ON AND FUNCTIONING. WILL CONTINUE TO MONITOR.
--- NOTE | 2020-08-28 07:12 | NUR ---
RECEIVED REPORT FROM CLEANING MATRON NURSE. PATIENT SUPINE IN BED, ALERT AND AWAKE, ANSWERS TO NAME. HOB 30 DEGREES, ON BIPAP: IPAP 18, EPAP 8, FIO2 100%, SPO2 86%. NO SINGS OF ACUTE DISTRESS NOTED. SHORE CATHETER IN PLACE, DRAINING TO GRAVITY. KALPESH PICC INFUSING NS @ 50 ML/HR, DOPAMINE @ 4 MCG/KG/MIN. LOCKSTITCH CUP SETTER IN PLACE. SAFETY MEASURES IN PLACE.
--- NOTE | 2020-08-28 07:12 | NUR ---
BEDSIDE REPORT GIVEN TO DAYSHIFT RN AT THIS TIME. VSS. KALPESH PICC IN PLACE, PATENT AND INFUSING.
[2020-08-28] MEDS: MIDODRINE 5 MG TAB PO SCH ×3 (07:58→18:15)
[2020-08-28] MEDS: VANCOMYCIN 1,000 MG in DEXTROSE 5% 250 ML IV SCH (09:08)
[2020-08-28] MEDS: MULTIVITAMIN/MINERALS 1 TAB PO SCH (09:09)
[2020-08-28] MEDS: LACTOBACILLUS RHAMNOSUS GG 1 EACH CAP PO SCH (09:09)
[2020-08-28] MEDS: ASPIRIN 81 MG TAB.CHEW NG SCH (09:09)
[2020-08-28] MEDS: ATORVASTATIN 20 MG TAB NG SCH (09:09)
[2020-08-28] MEDS: ASCORBIC ACID 500 MG/5 ML ORASYR PO SCH (09:10)
[2020-08-28] MEDS: ENOXAPARIN 40 MG/0.4 ML SYR SUBQ SCH (09:10)
--- NOTE | 2020-08-28 09:30 | NUR ---
ADMINISTERED SCHEDULED MEDS PER MD ORDER. BEDSIDE SWALLOW EVAL PERFORMED, PATIENT ABLE TO SWALLOW SAFELY. COLLABORATED WITH RT AT BEDSIDE TO ADMINISTER MEDICATIONS WITH BIPAP REMOVAL. BIPAP FIO2 REDUCED TO 90% AT THIS TIME. MED EDUCATION PROVIDED, REINFORCEMENT NEEDED.
--- NOTE | 2020-08-28 10:20 | NUR ---
RT AT BEDSIDE, PLACING PATIENT ON HI FLOW NC: 40 L/MIN, 100% FIO2.
--- NOTE | 2020-08-28 10:22 | NUR ---
SPEECH THERAPIST PERFORMING SWALLOW EVAL AT BEDSIDE. SEE HIS NOTES FOR RECOMMENDATIONS OF PUREED DIET, THICK LIQUIDS.
--- NOTE | 2020-08-28 10:29 | NUR ---
PT WAS SEEN FOR DYSPHAGIA. PT WS ABLE TO SAFELY SWALLOW PUREE DIET WITH NECTAR THICK LIQUID WITHOUT S/S OF ASPIRATION. DELAY IN SWALLOW WAS OBSERVED. RECOMMENDATION PUREE DIET WITH NECTAR THICK LIQUID
--- NOTE | 2020-08-28 10:31 | NUR ---
PATIENT REMOVED FROM HI CHRIS NS PATIENT DESATURATED BELOW 80% SPO2 WITHIN THE FIRST FIVE MINUTES. AND PLACED BACK ON BIPAP. BIPAP: IPAP 18, EPAP 8,FIO2 75%.
--- NOTE | 2020-08-28 10:42 | NUR ---
@1031 PT TAKEN OFF OF BIPAP AND PLACED ON HIGH FLOW. PT DID NOT TOLERATE SPO2 BEGAN TO DECREASE LOW 80%. PT IS AWAKE AT THIS TIME. PT PLACED BACK ON BIPAP 18/8, R12 AND FIO2 75%. NURSE MADE AWARE . WILL CONTINUE TO MONITOR.
--- NOTE | 2020-08-28 10:46 | NUR ---
DR RIZZO ROUNDING ON PATIENT AT BEDSIDE. PER DR RIZZO, CHANGE DIET ORDERS TO DIET RECOMMENDED BY SPEECH THERAPIST.
--- NOTE | 2020-08-28 11:40 | NUR ---
ABG RESULTS GIVEN TO . PHYSICIAN STATES TO KEEP TRYING TO WEAN PT OFF OF BIPAP AND FOR PT TO WEAR BIPAP NOC.
--- NOTE | 2020-08-28 12:14 | NUR ---
RT AT BEDSIDE WITH PATIENT.
--- NOTE | 2020-08-28 13:00 | NUR ---
08/28/20 RD FOLLOW UP COMPLETED PLEASE REFER TO NUTRITION ASSESSMENT UNDER CARE ACTIVITY FOR ESTIMATED NUTRITIONAL NEEDS. 1. CONTINUE PUREE DIET WITH NECTAR THICK LIQUIDS 2. IF PO INTAKE <50% CONSIDER ENSURE BID 3. CONTINUE MVI DAILY AND VITAMIN C 500 MG DAILY TO PROMOTE WOUND HEALING 4. RD TO FOLLOW-UP 2-3 DAYS, HIGH RISK KIERA BOURNE, RD
[2020-08-28] MEDS: THERAHONEY GEL 42.5 GM TP SCH (13:48)
[2020-08-28] MEDS: GAUZE TP SCH (13:48)
--- NOTE | 2020-08-28 17:18 | NUR ---
PT TAKEN OFF OF BIPAP AND PLACED ON HIGH FLOW 40 L 100% PER . PHYSICIAN WANTS PT ON BIPAP AT [facility]. NURSE AWARE.
[2020-08-28] MEDS: NACL 0.9% 1,000 ML IV SCH (18:14)
--- NOTE | 2020-08-28 19:00 | NUR ---
ASSUMED RESPONSIBILITY OF CARE AT THIS TIME.
--- NOTE | 2020-08-28 19:10 | NUR ---
ENDORSED TO DIAMOND WHEEL EDGER NURSE FOR CONTINUITY OF CARE.
[2020-08-28] MEDS: DOPamine 400 MG/D5W PREMIX 250 ML IV PRN (20:44)
--- NOTE | 2020-08-28 21:28 | NUR ---
2120 PLACED PATIENT BACK ON BIPAP FOR THE NIGHT.
--- NOTE | 2020-08-28 22:00 | NUR ---
PT RESTING IN BED. RESPONDS TO VERBAL STIMULI. FLACC 0.
[2020-08-29] VITALS (42 sets, daily range): BP systolic 77–153; BP diastolic 44–82
--- NOTE | 2020-08-29 | NUR ---
REPOSITIONED PT WITH MAXIMUM ASSIST. PT TOLERATED WELL. NO FURTHER SKIN BREAKDOWN NOTED. PRESSURE AREAS OFFLOADED.
[2020-08-29] MEDS: NYSTATIN POW 100 MU/GM 15 GM BTL TP SCH ×2 (00:24→13:07)
--- NOTE | 2020-08-29 02:00 | NUR ---
PT CONTINUES ON BIPAP. TOLERATING WELL. ORAL CARE AND CATH CARE PROVIDED AT THIS TIME.
--- NOTE | 2020-08-29 04:00 | NUR ---
BED BATH PROVIDED. PT TOLERATED WELL.
[2020-08-29 05:32] LABS: BASOPHILS # (AUTO) 0.1 K/uL (0.00-0.22); BASOPHILS % (AUTO) 1.1 % (0.0-2.0); EOSINOPHILS # (AUTO) 0.2 K/uL (0-0.4); EOSINOPHILS % (AUTO) 4.6 % (0.0-4.0); HEMATOCRIT 29.9 % (36-48); HEMOGLOBIN 9.5 g/dL (12.0-16.0); LYMPHOCYTES # (AUTO) 0.8 K/uL (2.5-16.5); LYMPHOCYTES % (AUTO) 15.2 % (20.5-51.1); MEAN CORPUSCULAR HEMOGLOBIN 30 pg (27-31); MEAN CORPUSCULAR HGB CONC 32 g/dL (33-37); MEAN CORPUSCULAR VOLUME 94.7 fL (80-94); MONOCYTES # (AUTO) 0.5 K/uL (0.8-1.0); MONOCYTES % (AUTO) 9.4 % (1.7-9.3); NEUTROPHILS # (AUTO) 3.5 K/uL (1.8-7.7); NEUTROPHILS % (AUTO) 69.7 % (42.2-75.2); PLATELET COUNT (AUTO) 237 K/uL (140-450); RED BLOOD CELL COUNT(AUTO) 3.16 MIL/uL (4.20-5.40); RED CELL DISTRIBUTION WIDTH 17.4 % (11.6-13.7)
[2020-08-29 06:08] LABS: ALBUMIN 2.7 g/dL (3.4-5.0); ANION GAP 3.3 (8-16); CREATININE 1.2 mg/dL (0.6-1.3); TOTAL BILIRUBIN 0.6 mg/dL (0.0-1.0)
[2020-08-29 06:12] LABS: CARBON DIOXIDE 40.7 mmol/L (21-32)
[2020-08-29] MEDS: LEVOTHYROXINE 0.025 MG TAB NG SCH (06:34)
--- NOTE | 2020-08-29 07:01 | NUR ---
RECEIVED PT ON BIPAP ASLEEP AT THIS TIME. SETTINGS 18/8 R12 AND FIO2 35%. PT NOT IN ANY DISTRESS AT THIS TIME. BIPAP IS PLUGGED INTO A RED OUTLET WITH ALARMS ON AND FUNCTIONING. WILL CONTINUE TO MONITOR.
--- NOTE | 2020-08-29 07:16 | NUR ---
RECEIVED BEDSIDE REPORT FROM HOSPITAL CHIEF FINANCIAL OFFICER NURSE MAYTE FOR CONTINUITY OF CARE. PATIENT IS ASLEEP COMFORTABLY ON BED. RESPIRATION EVEN, UNLABORED, ON BIPAP, IPAP 15, RATE 12, O2 35%, SPO2 AT 96%. EYES OPEN TO VOICE, ABLE TO NOD WHEN QUESTIONING, FOLLOW SOME COMMAND. NO SIGNS OF ACUTE DISTRESS NOTED. KALPESH PICC LINE, CLEAN AND DRY, RUNNING NS AT 50 ML/HR AND DOPAMINE 4 MCG/KG/MIN TO MAINTAIN MAP 65 OR ABOVE MD ORDER. SACRAL WOUND AND WOUND ON LEGS NOTED, SKIN WARM TO TOUCH, ABDOMEN SOFT, ROUND, NONTENDER. BOWEL SOUNDS ACTIVE x4 QUADRANTS. SHORE CATHETER IN PLACE, DRAINING WITH GRAVITY, CLEAR YELLOW URINE IN BED NOTED. PILLOW PLACES TO OFFLOAD PRESSURE. SAFETY MEASURES IN PLACE. BED IN LOW POSITION, HOB ELEVATED 30 DEGREE, AND BED LOCKED.
--- NOTE | 2020-08-29 07:35 | NUR ---
STARTED A NEW BAG OF DOPAMINE CONTINUE RUNNING AT 4 MCG/KG/MIN AND SCHEDULED MED ADMINISTERED.
[2020-08-29] MEDS: DOPamine 400 MG/D5W PREMIX 250 ML IV PRN (07:37)
[2020-08-29] MEDS: MIDODRINE 5 MG TAB PO SCH ×3 (07:38→18:52)
--- NOTE | 2020-08-29 09:10 | NUR ---
PT TAKEN OFF OF BIPAP PLACED ON HIGH FLOW 40L 90%. PT NOT IN ANY DISTRESS AT THIS TIME. WILL CONTINUE TO MONITOR.
[2020-08-29] MEDS: MULTIVITAMIN/MINERALS 1 TAB PO SCH (09:34)
[2020-08-29] MEDS: LACTOBACILLUS RHAMNOSUS GG 1 EACH CAP PO SCH (09:34)
[2020-08-29] MEDS: ASPIRIN 81 MG TAB.CHEW NG SCH (09:34)
[2020-08-29] MEDS: ATORVASTATIN 20 MG TAB NG SCH (09:36)
[2020-08-29] MEDS: ASCORBIC ACID 500 MG/5 ML ORASYR PO SCH (09:36)
[2020-08-29] MEDS: ENOXAPARIN 40 MG/0.4 ML SYR SUBQ SCH (09:37)
--- NOTE | 2020-08-29 09:39 | NUR ---
ADMINISTERED SCHEDULED AM PO MEDS, MEDS EDUCATION PROVIDED, REINFORCEMENT NEEDED DUE TO LEARNING DISABILITY. PATIENT AWAKE AND WATCHING TV ON BED. REPOSITIONED PATIENT, PATIENT TOLERATED FAIR, NO SIGNS OF ACUTE DISTRESS NOTED. SAFETY MEASURES IN PLACE.
--- NOTE | 2020-08-29 09:42 | NUR ---
DR VENTURA IS ROUNDING ON PATIENT.
[2020-08-29] MEDS ORDERED: PANTOPRAZOLE 40 MG INJ VIAL IVP SCH (09:49)
[2020-08-29] MEDS: NACL 0.45% 1,000 ML IV SCH (09:55)
[2020-08-29] MEDS: VANCOMYCIN 1,000 MG in DEXTROSE 5% 250 ML IV SCH (09:55)
--- NOTE | 2020-08-29 09:55 | NUR ---
EDUARDO OLIVARES 17.7, PHARMACIST NOTIFIED AND IT'S OK TO ADMINISTER AM DOSE. SCHEDULED VANCOMYCIN AND PROTONIX ADMINISTERED, IVF CHANGED PER MD ORDER, MEDS EDUCATION PROVIDED, REINFORCEMENT NEEDED. AM HYGIENE CARE PROVIDED, PATIENT TOLERATED FAIR. PATIENT AWAKE AND RESTING ON BED, NO ACUTE DISTRESS NOTED. SAFETY MEASURES IN PLACE. BED IN LOW POSITION, CALL LIGHT WITHIN REACH, DEMONSTRATED TO PATIENT ON HOW TO USE THE CALL LIGHT AND INSTRUCTED PATIENT TO USE THE CALL LIGHT FOR ANY ASSISTANCE AND PATIENT SAID YES.
--- NOTE | 2020-08-29 10:54 | NUR ---
RECEIVE CALL FROM MOTHER MARILEE, UPDATED HER WITH PATIENT'S CURRENT CONDITION, PLAN OF CARE, ANSWERED ALL HER QUESTIONS, MARILEE WAS AWARE.
--- NOTE | 2020-08-29 11:37 | NUR ---
PATIENT IS RESTING ON BED COMFORTABLY, DENIED OF ANY PAIN OR DISTRESS. REMAINS ON HIGH FLOW 40 LPM FIO2 90%, SPO2 AT 91% AT THIS TIME. REPOSITIONED PATIENT, PILLOWS PLACED TO OFFLOAD PRESSURE, PATIENT TOLERATED FAIR, DESATURATING TO 85% DURING REPOSITIONING. SAFETY MEASURES IN PLACE. BED IN LOW POSITION, CALL LIGHT WITHIN REACH, AND BED LOCKED.
--- NOTE | 2020-08-29 11:38 | NUR ---
PT REMAINS ON HIGH FLOW AT THIS TIME. TOLERATING WELL. SPO2 92%. WILL CONTINUE TO MONITOR.
--- NOTE | 2020-08-29 12:53 | NUR ---
PT BEGAN TO DESATURATE TO LOW 80'S ON HIGH FLOW. PT PLACED BACK ON BIPAP 18/8 R12 AND FIO2 55%, WILL TITRATE FIO2. NURSE AWARE. WILL CONTINUE TO MONITOR.
[2020-08-29] MEDS: THERAHONEY GEL 42.5 GM TP SCH (13:07)
[2020-08-29] MEDS: GAUZE TP SCH (13:07)
--- NOTE | 2020-08-29 13:07 | NUR ---
SCHEDULE MIDODRINE GIVEN. DRESSING ON WOUND, CLEAN AND DRY. DID NOT CHANGE. NYSTATIN POWDERS APPLIED TO UNDER BREASTS, ABDOMINAL FOLDS AND GROINS, REPOSITIONED PATIENT, PILLOWS PLACED TO OFFLOAD PRESSURE, PATIENT TOLERATED FAIR.RT PLACED PATIENT BACK TO BIPAP DUE TO DESATURATING. SAFETY MEASURES IN PLACE. BED IN LOW POSITION, HOB ELEVATED 30 DEGREE, CALL LIGHT WITHIN REACH, AND BED LOCKED.
--- NOTE | 2020-08-29 14:21 | NUR ---
DR LUX IS ROUNDING ON PATIENT.
--- NOTE | 2020-08-29 14:25 | NUR ---
[facility] CALLED REGARDING HOME C-PAP MACHINE, CALL [phone] WHEN PT HAS DC ORDER TO ARRANGE DELIVERY TO HOME. LEFT MESSAGE WITH ARYAN MITCHELL.
--- NOTE | 2020-08-29 14:43 | NUR ---
PATIENT HAS ONE MODERATE SOFT YELLOW BM, WITH ASSIST, CHANGED ALL DIRTY LINENS. CHANGED WOUND DRESSING, CLEANSED WITH WOUND SOLUTION, PAT DRY, APPLIED THERAHONEY, SECURED WITH HEART-SHAPED OPTIFOAM. PILLOWS PLACED TO OFFLOAD PRESSURE, HEEL PROTECTORS APPLIED, PATIENT TOLERATED FAIR. POSITIONED PATIENT COMFORTABLY AND WATCHING TV. PATIENT IS ON BIPAP, SPO2 100% AT THIS TIME. NO SIGNS OF ACUTE DISTRESS NOTED. SAFETY MEASURES IN PLACE.
[2020-08-29] MEDS: ALBUTEROL 0.083% 2.5 MG/3 ML NEBU INH PRN ×2 (14:44→17:18)
--- NOTE | 2020-08-29 14:50 | NUR ---
PRN BREATHING TX ADMINISTERED. FIO2 TITRATED TO 50%. NURSE AWARE.
--- NOTE | 2020-08-29 15:00 | NUR ---
WITH STERILE TECHNIQUE, CHANGED KALPESH PICC LINE DRESSING, DATED AND LABELED. PATIENT IS RESTING ON BED AND WATCHING TV COMFORTABLY, NO SIGNS OF ACUTE DISTRESS NOTED. SAFETY MEASURES IN PLACE.
--- NOTE | 2020-08-29 17:11 | NUR ---
WITH ASSIST, REPOSITIONED PATIENT AND PILLOWS PLACED TO OFFLOAD PRESSURE, PATIENT TOLERATED FAIR. PATIENT AWAKE AND WATCHING TV ON BED, NO SIGNS OF DISTRESS NOTED. DOPAMINE HELD, BP STABLE, 134/71 PULSE 90. SAFETY MEASURES IN PLACE.
--- NOTE | 2020-08-29 17:18 | NUR ---
PT TAKEN OFF BIPAP PER PHYSICIAN ORDER TO BE OFF DURING DAY TIME AND PLACED ON HIGH FLOW 40 L 100%. PRN BREATHING TX PLACED ON PT.
--- NOTE | 2020-08-29 17:30 | NUR ---
PT DESATURATING ON HIGH FLOW LOW 80% AND PLACED BACK ON BIPAP. SPO2 NOW CAME BACK UP TO LOW 90'S. NURSE AWARE OF PT STATUS.
--- NOTE | 2020-08-29 19:10 | NUR ---
RECEIVED PATIENT FROM AM SHIFT NURSE FOR CONTINUITY OF CARE. ALERT AND ABLE TO MAKE NEEDS KNOWN. RESPIRATIONS EVEN, UNLABORED. CONTINUES ON BIPAP FIO2 50%, O2SAT 93%. NO S/S RESPIRATORY DISTRESS. S1/S2 AUSCULTATED. SKIN WARM, DRY. RIGHT UPPER ARM PICC NOTED, INFUSING FLUIDS WELL. NO C/O PAIN. NO S/S ACUTE DISTRESS. ABDOMEN SOFT, ROUND, NONTENDER. BOWEL SOUNDS ACTIVE x4 QUADRANTS. SHORE CATHETER PATENT WITH CLEAR, YELLOW URINE DRAINING TO GRAVITY. PLAN OF CARE DISCUSSED. ENCOURAGED TURNING AND REPOSITIONING TO MAINTAIN SKIN INTEGRITY. PATIENT VERBALIZED UNDERSTANDING BUT NEEDS REINFORCEMENT. SAFETY PRECAUTIONS IN PLACE. FREQUENT ROUNDS BY ALL STAFF.
--- NOTE | 2020-08-29 19:55 | NUR ---
PT RECEIVED ON BIPAP 02/12 f12 50%. THE ALARMS ARE ON AND AUDIBLE. BIPAP PLUGGED INTO RED OUTLET WILL CONTINUE TO MONITOR.
--- NOTE | 2020-08-29 21:37 | NUR ---
PATIENT RESTING COMFORTABLY IN BED. NO S/S ACUTE DISTRESS. NO C/O PAIN. FREQUENT ROUNDS BY ALL STAFF.
--- NOTE | 2020-08-29 23:19 | NUR ---
PATIENT PLACED ON [facility] TO EAT ICE CREAM. O2SAT 100%. Addendum: 08/29/20 at 2322 by Rosi Pianter RN AMEND ICE CREAM.
--- NOTE | 2020-08-29 23:20 | NUR ---
PER REQUEST PT PLACED ON HFNC (40L 100%)AND BIPAP ON STDBY TO EAT PT TOLERATING HFNC WELL AT THIS TIME WILL CONTINUE TO MONITOR
--- NOTE | 2020-08-29 23:27 | NUR ---
PT REPLACED ON BIPAP W/ NO CHANGES TO SETTINGS WILL CONTINUE TO MONITOR
[2020-08-30] VITALS (27 sets, daily range): BP systolic 65–141; BP diastolic 21–98
[2020-08-30] MEDS: NYSTATIN POW 100 MU/GM 15 GM BTL TP SCH ×2 (00:19→12:53)
--- NOTE | 2020-08-30 01:00 | NUR ---
MADE ROUNDS. PATIENT IS WATCHING TV, RESTING COMFORTABLY. NO S/S RESPIRATORY DISTRESS. NO C/O PAIN. FREQUENT ROUNDS BY ALL STAFF.
--- NOTE | 2020-08-30 03:00 | NUR ---
PATIENT IS ASLEEP. NO S/S ACUTE DISTRESS. FREQUENT ROUNDS BY ALL STAFF.
[2020-08-30] MEDS: NACL 0.45% 1,000 ML IV SCH (04:42)
[2020-08-30 05:33] LABS: BASOPHILS % (AUTO) 0.5 % (0.0-2.0); EOSINOPHILS # (AUTO) 0.2 K/uL (0-0.4); EOSINOPHILS % (AUTO) 3.6 % (0.0-4.0); HEMATOCRIT 30.8 % (36-48); HEMOGLOBIN 9.7 g/dL (12.0-16.0); LYMPHOCYTES # (AUTO) 1.3 K/uL (2.5-16.5); LYMPHOCYTES % (AUTO) 20.8 % (20.5-51.1); MEAN CORPUSCULAR HEMOGLOBIN 30 pg (27-31); MEAN CORPUSCULAR HGB CONC 32 g/dL (33-37); MEAN CORPUSCULAR VOLUME 95.4 fL (80-94); MONOCYTES # (AUTO) 0.6 K/uL (0.8-1.0); MONOCYTES % (AUTO) 9.6 % (1.7-9.3); NEUTROPHILS # (AUTO) 4.1 K/uL (1.8-7.7); NEUTROPHILS % (AUTO) 65.5 % (42.2-75.2); PLATELET COUNT (AUTO) 276 K/uL (140-450); RED BLOOD CELL COUNT(AUTO) 3.23 MIL/uL (4.20-5.40); RED CELL DISTRIBUTION WIDTH 17.6 % (11.6-13.7); WHITE BLOOD COUNT (AUTO) 6.2 K/uL (4.8-10.8)
--- NOTE | 2020-08-30 05:33 | NUR ---
INCONTINENT CARE RENDERED.
[2020-08-30] MEDS: LEVOTHYROXINE 0.025 MG TAB NG SCH (06:07)
[2020-08-30 06:12] LABS: ALBUMIN 2.9 g/dL (3.4-5.0); ANION GAP 5.5 (8-16); CARBON DIOXIDE 38.1 mmol/L (21-32); CREATININE 1.2 mg/dL (0.6-1.3); POTASSIUM 3.6 mmol/L (3.5-5.1); TOTAL BILIRUBIN 0.7 mg/dL (0.0-1.0)
[2020-08-30] MEDS: MIDODRINE 5 MG TAB PO SCH ×3 (06:41→18:28)
--- NOTE | 2020-08-30 07:12 | NUR ---
RECEIVED BEDSIDE REPORT FROM SUPERVISOR NATURAL GAS PLANT NURSE ERIC FOR CONTINUITY OF CARE. PATIENT IS RESTING COMFORTABLY ON BED. RESPIRATION EVEN, UNLABORED, ON BIPAP, IPAP 15, RATE 12, O2 50%, SPO2 AT 93%. AROUSABLE TO VOICE, ABLE TO FOLLOW SOME COMMAND. NO SIGNS OF ACUTE DISTRESS NOTED. KALPESH PICC LINE, CLEAN AND DRY, DRESSING CHANGED ON 08/29/2020, DATE, RUNNING 0.45 NS AT 50 ML/HR. SACRAL WOUND AND WOUND ON LEGS NOTED, DRESSINGS CLEAN AND DRY. SKIN WARM TO TOUCH, ABDOMEN SOFT, ROUND, NONTENDER. BOWEL SOUNDS ACTIVE x4 QUADRANTS. SHORE CATHETER IN PLACE, DRAINING WITH GRAVITY, CLEAR YELLOW URINE IN BED NOTED. PILLOW PLACES TO OFFLOAD PRESSURE, BILATERAL HEEL PROTECTORS IN PLACE. SAFETY MEASURES IN PLACE. BED IN LOW POSITION, HOB ELEVATED 30 DEGREE, CALL LIGHT WITHIN REACH AND BED LOCKED. INSTRUCTED PATIENT TO USE THE CALL LIGHT FOR ANY ASSISTANCE AND PATIENT SAID OK.
--- NOTE | 2020-08-30 07:40 | NUR ---
RECEIVED PT ON BIPAP. SETTINGS 18/8, R12 AND FIO2 50%. NO BREAK DOWN NOTED. BIPAP IS PLUGGED INTO A RED OUTLET WITH ALARMS ON AND FUNCTIONING. WILL CONTINUE TO MONITOR.
--- NOTE | 2020-08-30 08:09 | NUR ---
PT TAKEN OFF OF BIPAP AND PLACED ON HIGH FLOW 40 L 100%. SPO2 WITH ADEQUATE WAVEFORM 95%. PT NOT IN ANY DISTRESS AT THIS TIME. NURSE AWARE. WILL CONTINUE TO MONITOR.
[2020-08-30] MEDS: LACTOBACILLUS RHAMNOSUS GG 1 EACH CAP PO SCH (08:25)
[2020-08-30] MEDS: MULTIVITAMIN/MINERALS 1 TAB PO SCH (08:25)
[2020-08-30] MEDS: ASPIRIN 81 MG TAB.CHEW NG SCH (08:25)
[2020-08-30] MEDS: ATORVASTATIN 20 MG TAB NG SCH (08:25)
[2020-08-30] MEDS: PANTOPRAZOLE 40 MG INJ VIAL IVP SCH (08:25)
[2020-08-30] MEDS: ASCORBIC ACID 500 MG/5 ML ORASYR PO SCH (08:25)
[2020-08-30] MEDS: ENOXAPARIN 40 MG/0.4 ML SYR SUBQ SCH (08:26)
--- NOTE | 2020-08-30 08:30 | NUR ---
SCHEDULED AM PO AND SUBQ MEDS GIVEN, PATIENT TOLERATED WELL, MEDS EDUCATION PROVIDED, REINFORCEMENT NEEDED. AM HYGIENE CARE PROVIDED. WITH ASSIST, REPOSITIONED PATIENT, PILLOWS PLACED TO OFFLOAD PRESSURE, HEEL PROTECTORS IN PLACE. PATIENT IS AWAKE AND WATCHING TV ON BED, NO SIGNS OF ACUTE DISTRESS NOTED. PATIENT IN ON HIGH FLOW 40 LPM FIO2 100%, SPO2 AT 93%. SAFETY MEASURES IN PLACE. BED IN LOW POSITION, HOB ELEVATED 30 DEGREE, CALL LIGHT WITHIN REACH, AND BED LOCKED.
--- NOTE | 2020-08-30 08:38 | NUR ---
PATIENT IS TALKING TO HER MOTHER MILRED ON THE PHONE, NO SIGNS OF ACUTE DISTRESS NOTED. SAFETY MEASURES IN PLACE.
[2020-08-30] MEDS: VANCOMYCIN 1,000 MG in DEXTROSE 5% 250 ML IV SCH (09:40)
--- NOTE | 2020-08-30 09:40 | NUR ---
SCHEDULED VANCOMYCIN ADMINISTERED, PATIENT IS AWAKE AND RESTING ON BED. NO SIGNS OF ACUTE DISTRESS NOTED. SAFETY MEASURES IN PLACE.
[2020-08-30] MEDS ORDERED: VANCOMYCIN PER PHARMACY MC PRN (09:45)
--- NOTE | 2020-08-30 10:40 | NUR ---
PATIENT HAS ONE MODERATE SOFT YELLOW BM. WITH ASSIST, PROVIDED HYGIENE CARE. CHANGED ALL DIRTY LINENS. CHANGED WOUND DRESSING, CLEANSED WITH WOUND SOLUTION, PAT DRY, APPLIED THERAHONEY, SECURED WITH HEART-SHAPED OPTIFOAM. PILLOWS PLACED TO OFFLOAD PRESSURE, HEEL PROTECTORS APPLIED, PATIENT TOLERATED FAIR. POSITIONED PATIENT COMFORTABLY AND WATCHING TV. PATIENT IS ON HIGH FLOW NC 40 LPM FIO2 100%, SPO2 90% AT THIS TIME. NO SIGNS OF ACUTE DISTRESS NOTED. SAFETY MEASURES IN PLACE.
[2020-08-30] MEDS ORDERED: POTASSIUM CHLORIDE 10 MEQ TABER PO SCH (12:37)
--- NOTE | 2020-08-30 12:44 | NUR ---
DR VENTURA IS ASSESSING PATIENT AT BEDSIDE.
[2020-08-30] MEDS: GAUZE TP SCH (12:53)
[2020-08-30] MEDS: THERAHONEY GEL 42.5 GM TP SCH (12:53)
--- NOTE | 2020-08-30 12:54 | NUR ---
SCHEDULED MIDODRINE GIVEN, 40 MEQ K-DUR GIVEN PER DR VENTURA ORDER FOR POTASSIUM 3.6 FROM AM LAB, MEDS EDUCATION PROVIDED, REINFORCEMENT NEEDED. WITH ASSIST, REPOSITIONED PATIENT, PILLOWS PLACED TO OFFLOAD PRESSURE, HEEL PROTECTORS IN PLACE. PATIENT IS RESTING ON BED AND WATCHING TV, NO SIGNS OF DISTRESS NOTED. SAFETY MEASURES IN PLACE. BED IN LOW POSITION, BED ALARM ACTIVATED, BED LOCKED, AND CALL LIGHT WITHIN REACH.
--- NOTE | 2020-08-30 15:27 | NUR ---
PATIENT IS ASLEEP ON BED COMFORTABLY, NO SIGNS OF ACUTE DISTRESS NOTED. RESPIRATION EVEN, UNLABORED ON HIGH FLOW NC 40 LPM FIO2 100%, SPO2 AT 94% AT THIS TIME. SAFETY MEASURES IN PLACE. BED IN LOW POSITION, BED ALARM ACTIVATED, AND BED LOCKED.
--- NOTE | 2020-08-30 17:12 | NUR ---
DR LUX IS ROUNDING ON PATIENT.
--- NOTE | 2020-08-30 18:33 | NUR ---
ASSISTED PATIENT TO EAT DINNER, PATIENT TOLERATED FINE. ADMINISTERED SCHEDULED MIDODRINE. PATIENT AWAKE AND WATCHING TV ON BED. NO SIGNS OF ACUTE DISTRESS NOTED. SAFETY MEASURES IN PLACE.
--- NOTE | 2020-08-30 19:02 | NUR ---
PT RECEIVED ON HFNC 40L 100% AWAKE AND ALERT WATCHING TV W/ NO DISTRESS NOTED. WATER WAS REPLACED ON HFNC. PT WILL BE PLACED ON NOC NIV LATER TONIGHT. BIPAP ON STDBY AT BEDSIDE. WILL CONTINUE TO MONITOR.
--- NOTE | 2020-08-30 20:05 | NUR ---
RECEIVED REPORT FROM DAYSWVFT NURSE, PT AWAKE AND ALERT TO NAME AND PLACE. HX OF MENTAL DELAY, PT HAS SOME INCOMPREHENSIBLE WORDS. ON HIGH FLOW NASAL CANNULA, 40L, FI02 100%. KALPESH PICC IN PLACE, INFUSING IVF ORDERED. SKIN WARM AND DRY, AFEBRILE. SKIN NOT INTACT, SMALL PRESSURE WOUND TO RIGHT INNER BUTTOCK/ISCHIUM, DRESSING DRY. MULTIPLE BLISTERS NOTED AT BILATERAL LOWER EXTREMITIES. LARGE THICK SURGICAL SCAR AT CHEST FROM PAST STERNOTOMY. EDEMA NOTED AT BUE, PITTING 1+. PERRL, 3 MM BRISK. ABDOMEN LARGE, ROUND, AND NONTENDER, WITH ACTIVE BOWEL SOUNDS. SHORE CATHETER IN PLACE, DRAINING BY GRAVITY, CLEAR YELLOW URINE NOTED. BED LOCKED AND IN LOWEST POSITION, SIDE RAILS UP. PT ORIENTED TO TREATMENT PLAN. PT VERBALIZES UNDERSTANDING BUT UNABLE TO "TEACH BACK". PT DENIES PAIN. CALL LIGHT WITHIN REACH, WILL CONTINUE TO MONITOR.
--- NOTE | 2020-08-30 22:17 | NUR ---
PT PLACED ON BIPAP AND HFNC PLACED ON STDBY ( REMAINS AT BEDSIDE ). PT PLACED ON SETTINGS THEY WERE PREV SET 18/8 f12 50%. BIPAP PLUGGED INTO RED OUTLET W/ ALARMS ON AND AUDIBLE WILL CONTINUE TO MONITOR
[2020-08-31] VITALS (31 sets, daily range): BP systolic 86–127; BP diastolic 44–78
--- NOTE | 2020-08-31 00:06 | NUR ---
PT TOLERATING BIPAP WELL. NO SIGNS OF DISTRESS. PT ALERT TO NAME, DENIES PAIN. BED LOCKED AND IN LOWEST POSITION, SIDE RAILS UP, ALL NEEDS MET AT THIS TIME. WILL CONTINUE TO MONITOR.
[2020-08-31] MEDS: NYSTATIN POW 100 MU/GM 15 GM BTL TP SCH ×2 (01:39→13:02)
[2020-08-31] MEDS: NACL 0.45% 1,000 ML IV SCH (02:13)
--- NOTE | 2020-08-31 02:24 | NUR ---
RT AT BEDSIDE. NO SIGNS OF DISTRESS. PT HAS EYES CLOSED. BIPAP SECURED. ALL VITALS WITHIN RANGE. SAFETY MEASURES IN PLACE, CALL LIGHT WITHIN REACH.
--- NOTE | 2020-08-31 04:55 | NUR ---
SPONGE BATH, SHORE CARE, AND WOUND CARE PROVIDED. SMALL AMOUNT BOWEL MOVEMENT NOTED, SEMISOFT. CHANGED GOWN AND LINEN. PT TOLERATED FAIRLY. REPLACED INTERDRY DRESSINGS AT ABDOMINAL AND BREAST FOLDS. PT DENIES PAIN. OFFLOADED PRESSURE SITES. SAFETY MEASURES IN PLACE.
[2020-08-31 05:08] LABS: BASOPHILS % (AUTO) 0.7 % (0.0-2.0); EOSINOPHILS # (AUTO) 0.2 K/uL (0-0.4); EOSINOPHILS % (AUTO) 4.8 % (0.0-4.0); HEMATOCRIT 30.8 % (36-48); HEMOGLOBIN 9.6 g/dL (12.0-16.0); LYMPHOCYTES # (AUTO) 0.8 K/uL (2.5-16.5); LYMPHOCYTES % (AUTO) 16.4 % (20.5-51.1); MEAN CORPUSCULAR HEMOGLOBIN 30 pg (27-31); MEAN CORPUSCULAR HGB CONC 31 g/dL (33-37); MONOCYTES # (AUTO) 0.3 K/uL (0.8-1.0); MONOCYTES % (AUTO) 6.7 % (1.7-9.3); NEUTROPHILS # (AUTO) 3.6 K/uL (1.8-7.7); NEUTROPHILS % (AUTO) 71.4 % (42.2-75.2); PLATELET COUNT (AUTO) 261 K/uL (140-450); RED BLOOD CELL COUNT(AUTO) 3.21 MIL/uL (4.20-5.40); RED CELL DISTRIBUTION WIDTH 17.9 % (11.6-13.7)
--- NOTE | 2020-08-31 06:17 | NUR ---
PT WOKE UP AND WAS PLACED ON HFNC PT TOLERATING WELL AT THIS TIME
[2020-08-31 06:22] LABS: ALBUMIN 2.6 g/dL (3.4-5.0); ANION GAP 2.9 (8-16); CREATININE 1.2 mg/dL (0.6-1.3); POTASSIUM 3.9 mmol/L (3.5-5.1); TOTAL BILIRUBIN 0.6 mg/dL (0.0-1.0)
--- NOTE | 2020-08-31 06:27 | NUR ---
PT AWAKE AND ALERT. REQUESTING BREAKFAST. CALLED RT TO SWITCH TO HIGH FLOW NASAL CANNULA. PT ON HIGH FLOW FI02 100%, 40L. PROVIDED ORAL CARE AND ADMINISTER PO MEDS. PT TOLERATED WELL. NO COMPLAINT OF SOB, PT ABLE TO ANSWER SIMPLE QUESTIONS AND DRINK 1 JUICE WITHOUT DESATTING. WILL CONTINUE TO MONITOR.
[2020-08-31] MEDS: LEVOTHYROXINE 0.025 MG TAB NG SCH (06:29)
[2020-08-31] MEDS: MIDODRINE 5 MG TAB PO SCH ×3 (06:30→18:32)
--- NOTE | 2020-08-31 07:00 | NUR ---
RECEIVED BEDSIDE REPORT FROM VEHICLE DAMAGE APPRAISER NURSE, HARPREET MONTANEZ, FOR CONTINUITY OF CARE. PATIENT IS RESTING COMFORTABLY ON BED. RESPIRATION EVEN, UNLABORED, ON HI-FLOW NC, FIO2 100, 40 L, SPO2 AT 92%. AROUSABLE TO VOICE, ABLE TO FOLLOW SOME COMMAND. NO SIGNS OF ACUTE DISTRESS NOTED. KALPESH PICC LINE, CLEAN AND DRY, DRESSING CHANGED ON 08/29/2020, DATE, RUNNING 0.45 NS AT 50 ML/HR. SACRAL WOUND AND WOUND ON LEGS NOTED, DRESSINGS CLEAN AND DRY. SKIN WARM TO TOUCH, ABDOMEN SOFT, ROUND, NONTENDER. BOWEL SOUNDS ACTIVE x4 QUADRANTS. SHORE CATHETER IN PLACE, DRAINING WITH GRAVITY, CLEAR YELLOW URINE IN BED NOTED. SILVERWARE SUPERVISOR AND PULSE OXIMETER IN PLACE AND READING. PILLOW PLACES TO OFFLOAD PRESSURE, BILATERAL HEEL PROTECTORS IN PLACE. SAFETY MEASURES IN PLACE. BED IN LOW POSITION, HOB ELEVATED 30 DEGREE, CALL LIGHT WITHIN REACH AND BED LOCKED. INSTRUCTED PATIENT TO USE THE CALL LIGHT FOR ANY ASSISTANCE AND PATIENT SAID OK. WILL CONTINUE TO MONITOR.
--- NOTE | 2020-08-31 07:33 | NUR ---
RECEIVED PT ON HIGH FLOW 40 L 100% FIO2. SPO2 93% AT THIS TIME. PT NOT IN ANY DISTRESS OR SOB. PRN BREATHING TX TO BE ADMINISTERED. BS DIMINISHED BILATERALLY. BIPAP IS BEDSIDE IF NEEDED. WILL CONTINUE TO MONITOR.
[2020-08-31] MEDS: ALBUTEROL 0.083% 2.5 MG/3 ML NEBU INH PRN (07:34)
[2020-08-31] MEDS: PANTOPRAZOLE 40 MG INJ VIAL IVP SCH (08:52)
[2020-08-31] MEDS: VANCOMYCIN 1,000 MG in DEXTROSE 5% 250 ML IV SCH (08:52)
[2020-08-31] MEDS: MULTIVITAMIN/MINERALS 1 TAB PO SCH (08:53)
[2020-08-31] MEDS: LACTOBACILLUS RHAMNOSUS GG 1 EACH CAP PO SCH (08:53)
[2020-08-31] MEDS: ASPIRIN 81 MG TAB.CHEW NG SCH (08:53)
[2020-08-31] MEDS: ASCORBIC ACID 500 MG/5 ML ORASYR PO SCH (08:53)
[2020-08-31] MEDS: ATORVASTATIN 20 MG TAB NG SCH (08:53)
[2020-08-31] MEDS: ENOXAPARIN 40 MG/0.4 ML SYR SUBQ SCH (08:54)
--- NOTE | 2020-08-31 09:00 | NUR ---
ADMINISTERED SCHEDULED AM MEDS. NO SIGNS OF DISTRESS. PATIENT DENIES PAIN WHEN ASKED. ATE 50% OF BREAKFAST. ORAL CARE, HYGIENE CARE, SHORE CARE, AND CHG BATH PROVIDED. PATIENT IS LYING IN BED, AWAKE, WATCHING TV. INSTRUCTED TO CALL FOR ASSISTANCE. WILL CONTINUE TO MONITOR.
--- NOTE | 2020-08-31 09:20 | NUR ---
FIO2 TITRATED TO 90%. PT NOT IN ANY DISTRESS AT THIS TIME. WILL CONTINUE TO MONITOR.
--- NOTE | 2020-08-31 11:00 | NUR ---
CHECKED ON PATIENT, RESTING IN BED, NO SIGNS OF DISTRESS, DENIES PAIN WHEN ASKED. WILL CONTINUE TO MONITOR.
--- NOTE | 2020-08-31 12:10 | NUR ---
DR. AUDREY PERDUE. UPDATED ON PATIENT STATUS AND CONDITION. AWARE OF PATIENT DIET, CLEAR LIQUID. DR. VENTURA ADVANCED DIET TO PUREE. ORDERS PLACED. RECOMMENDS DOWNGRADE TO TELE TOMORROW.
[2020-08-31] MEDS: GAUZE TP SCH (13:01)
[2020-08-31] MEDS: THERAHONEY GEL 42.5 GM TP SCH (13:02)
--- NOTE | 2020-08-31 15:34 | NUR ---
PT PLACED ON BIPAP DUE TO SIGNS/SYMPTOMS OF HYPERCAPNIA. PT STILL ABLE TO OPEN EYES AND NOD HEAD WHEN QUESTIONED. WILL CONTINUE TO MONITOR.
--- NOTE | 2020-08-31 16:35 | NUR ---
CHECKED ON PATIENT. NO SIGNS OF DISTRESS. DENIES PAIN WHEN ASKED. WILL CONTINUE TO MONITOR.
--- NOTE | 2020-08-31 17:00 | NUR ---
PATIENT HAD BOWEL MOVEMENT. INCONTENENCE CARE, PERNIAL CARE, AND HYGIENE CARE PROVIDED. REPOSITIONED PATIENT WITH RT AND CHARGE NURSE. WILL CONTINUE TO MONITOR.
--- NOTE | 2020-08-31 18:10 | NUR ---
GAVE PATIENT DINNER TRAY. PATIENT IN A COMFORTABLY IN HIGH FOWLERS POSITION, AND ON HIGH FLOW NC FOR DINNER. WILL CONTINUE TO MONITOR.
--- NOTE | 2020-08-31 18:20 | NUR ---
PATIENT FINISHED DINNER, ATE ABOUT 40%. WILL CONTINUE TO MONITOR.
--- NOTE | 2020-08-31 19:04 | NUR ---
ENDORSED CARE TO CLINICAL CODER NURSE, ANTONIA MONTANEZ, FOR CONTINUITY OF CARE.
--- NOTE | 2020-08-31 19:10 | NUR ---
RECIEVED BEDSIDE ENDORSEMENT FROM DAY SHIFT RN, PT LYING SUPINE W/ HOB >30 DEGREES AND LOW, A&OX2/3, ABLE TO MAKE NEEDS KNOWN AND FOLLOWS COMMAND, SR ON MONITOR, HF NC 40L/MIN FIO2 85%, ABD SOFT AND NON TENDER TO TOUCH, SKIN WARM AND DRY, SKIN NON INTACT/SEE WOUND ASSESSMENT, AFEBRILE, FC IN PLACE DRAINING VIA GRAVITY, KALPESH PICC INFUSING HALF NS TKO, NO SIGNS OF ACUTE DISTRESS, SAFETY MEASURES IN PLACE, WILL CONTINUE WITH CURRENT POC
--- NOTE | 2020-08-31 19:59 | NUR ---
PT AWAKE AND ALERT WATCHING TV IN HIGH FOWLERS ON HFNC. HFNC SETTINGS 40L 85%, PT WILL BE PLACED ON NIV LATER TONIGHT WILL CONTINUE TO MONITOR.
--- NOTE | 2020-08-31 20:27 | NUR ---
ADMINISTERED 2100H MEDICATIONS PER ORDERS, BLOOD GLUCOSE 176, ADMINISTERED 2 UNITS HUMALOG PER PROTOCOL Addendum: 08/31/20 at 2027 by Brandon Baird RN DISREGARD NOTE, WRONG PT NOTES
--- NOTE | 2020-08-31 22:10 | NUR ---
REPOSITONED PT, GAVE ICE CHIPS UPON PT REQUEST, PT SHOWING NO SIGNS OF ACUTE DISTRESS
--- NOTE | 2020-08-31 22:24 | NUR ---
NOC NIV INITIATED AND PLACED HFNC ON STDBY. HFNC REMAINS AT BEDSIDE. BIPAP SETTINGS THEY WERE ON STDBY 18/ f12 40%. PT APPEARS TO BE TOLERATING WELL AT THIS TIME AND COMFORTABLY ASLEEP. BIPAP PLUGGED INTO RED OUTLET W/ ALARMS ON AND AUDIBLE WILL CONTINUE TO MONITOR
--- NOTE | 2020-08-31 23:04 | NUR ---
MED MASK EXCHANGED FOR Lg BIPAP MASK
--- NOTE | 2020-08-31 23:15 | NUR ---
FIO2 TITRATED TO 47% DUE TO DESAT CURRENT SPO2 94/96%
[2020-09-01] VITALS (18 sets, daily range): BP systolic 95–122; BP diastolic 57–94
--- NOTE | 2020-09-01 00:10 | NUR ---
PT ASLEEP AND SHOWING NO SIGNS OF ACUTE DISTRESS
[2020-09-01] MEDS: NYSTATIN POW 100 MU/GM 15 GM BTL TP SCH ×2 (00:18→13:11)
--- NOTE | 2020-09-01 02:15 | NUR ---
PT ASLEEP AND SHOWING NO SIGNS OF ACUTE DISTRESS
--- NOTE | 2020-09-01 04:02 | NUR ---
PT DESAT MID 80s DUE TO MASK LEAK MASK WAS RE-ADJUSTED AND SPO2 NISHI TO 97% WILL CONTINUE TO MONITOR
[2020-09-01 04:52] LABS: BASOPHILS % (AUTO) 0.7 % (0.0-2.0); EOSINOPHILS # (AUTO) 0.2 K/uL (0-0.4); EOSINOPHILS % (AUTO) 3.5 % (0.0-4.0); HEMATOCRIT 30.7 % (36-48); HEMOGLOBIN 9.6 g/dL (12.0-16.0); LYMPHOCYTES # (AUTO) 0.6 K/uL (2.5-16.5); LYMPHOCYTES % (AUTO) 10.1 % (20.5-51.1); MEAN CORPUSCULAR HEMOGLOBIN 30 pg (27-31); MEAN CORPUSCULAR HGB CONC 31 g/dL (33-37); MEAN CORPUSCULAR VOLUME 95.9 fL (80-94); MONOCYTES # (AUTO) 0.3 K/uL (0.8-1.0); MONOCYTES % (AUTO) 5.3 % (1.7-9.3); NEUTROPHILS # (AUTO) 4.9 K/uL (1.8-7.7); NEUTROPHILS % (AUTO) 80.4 % (42.2-75.2); PLATELET COUNT (AUTO) 262 K/uL (140-450); RED BLOOD CELL COUNT(AUTO) 3.21 MIL/uL (4.20-5.40); RED CELL DISTRIBUTION WIDTH 18.1 % (11.6-13.7)
[2020-09-01 05:13] LABS: ALBUMIN 2.6 g/dL (3.4-5.0); ANION GAP 3.1 (8-16); CARBON DIOXIDE 38.8 mmol/L (21-32); CREATININE 1.4 mg/dL (0.6-1.3); POTASSIUM 3.9 mmol/L (3.5-5.1); TOTAL BILIRUBIN 0.5 mg/dL (0.0-1.0)
[2020-09-01] MEDS: MIDODRINE 5 MG TAB PO SCH ×3 (06:08→18:30)
[2020-09-01] MEDS: LEVOTHYROXINE 0.025 MG TAB NG SCH (06:08)
--- NOTE | 2020-09-01 06:09 | NUR ---
ADMINISTERED 0600H MEDICATIONS PER MD ORDERS,
--- NOTE | 2020-09-01 07:15 | NUR ---
ENDORSED TO DAY SHIFT RN FOR CONTINUITY OF CARE
--- NOTE | 2020-09-01 07:16 | NUR ---
RECEIVED BEDSIDE REPORT FROM ACADEMIC ADVISEMENT DIRECTOR NURSE ANTONIA RN, PT RESTING, NO DISTRESS NOTED, PICC LINE TO R UPPER ARM, PATENT INTACT, INFUSING NS @ KVO. PT ON BIPAP 47% FIO2, TOLERATING WELL SATURATING @100%, SHORE CATH IN PLACE, NOTED PINK COLORED URINE AND SOME BLOOD, PT SLEEPING, INITIAL ASSESSMENT DONE, ALL SAFETY PRECAUTION MET, CALL LIGHT WITHIN REACH, WILL CONTINUE TO MONITOR.
--- NOTE | 2020-09-01 08:20 | NUR ---
CALLED TO PTS ROOM TO REMOVE BIPAP SO PT COULD EAT BREAKFAST. PLACED PT ON HIGH FLOW 40L, 85%. TOLERATING WELL, WILL CONTINUE TO MONITOR.
[2020-09-01] MEDS: LACTOBACILLUS RHAMNOSUS GG 1 EACH CAP PO SCH (08:52)
[2020-09-01] MEDS: MULTIVITAMIN/MINERALS 1 TAB PO SCH (08:52)
[2020-09-01] MEDS: PANTOPRAZOLE 40 MG INJ VIAL IVP SCH (08:52)
[2020-09-01] MEDS: ATORVASTATIN 20 MG TAB NG SCH (08:53)
[2020-09-01] MEDS: ENOXAPARIN 40 MG/0.4 ML SYR SUBQ SCH (08:53)
[2020-09-01] MEDS: ASCORBIC ACID 500 MG/5 ML ORASYR PO SCH (08:53)
[2020-09-01] MEDS: ASPIRIN 81 MG TAB.CHEW NG SCH (08:53)
--- NOTE | 2020-09-01 08:53 | NUR ---
DUE MEDICATIONS ADMINISTERED, PT TOLERATED WELL, LOVENOX HELD DUE TO NOTED BLOOD TO URINE, WILL NOTIFY
--- NOTE | 2020-09-01 10:45 | NUR ---
CALLED TO PTS ROOM FOR DESATURATING TO 83% WHILE SLEEPING. PLACED PT ON BIPAP, WILL CONTINUE TO MONITOR.
[2020-09-01] MEDS: GAUZE TP SCH (13:11)
[2020-09-01] MEDS: THERAHONEY GEL 42.5 GM TP SCH (13:11)
[2020-09-01] MEDS ORDERED: NACL 0.9% 250 ML IV SCH (13:15)
--- NOTE | 2020-09-01 13:16 | NUR ---
SPOKE TO DR VENTURA REGARDING PT, PER DR DAVID TO TRANSFER TO TELE AND REGARDING BLOOD IN THE SHORE CATH AND LOW URINE OUTPUT, PER TO BOLUS PT 250ML NS AND JOANN TO HOLD LOVENOX. WILL CONTINUE TO MONITOR.
--- NOTE | 2020-09-01 14:13 | NUR ---
TRANSFERRED PT TO ROOM 122A, TOLERATED WELL, NO DISTRESS NOTED, WILL CONTINUE TO MONITOR.
--- NOTE | 2020-09-01 14:25 | NUR ---
TRANSFERRED PT TO TELE WITH NO ISSUES. PT PLACED BACK ON HIGH FLOW NC, NO RESPIRATORY DISTRESS NOTED.
--- NOTE | 2020-09-01 18:30 | NUR ---
MEDICATION ORDERED ADMINISTERED, PT TOLERATED WELL, WILL CONTINUE TO MONITOR.
--- NOTE | 2020-09-01 19:01 | NUR ---
PT AWAKE AND ALERT PT PULLED OFF BIPAP MASK TO EAT JUST PRIOR TO MY ARRIVAL AND DESAT AND WAS PLACED ON HFNC AND SPO2 NISHI TO 92 AND CLIMBING. PT PLACED ON 40L 100% ON HFNC WILL CONTINUE TO MONITOR
--- NOTE | 2020-09-01 19:28 | NUR ---
ENDORSED PT TO STACKER STRAIGHTENER NURSE IRVIN MONTANEZ FOR CONTINUOUS OF CARE.
--- NOTE | 2020-09-01 19:48 | NUR ---
REACHED REPORT FROM DAY SHIFT RNZAIN FOR CONTINUITY OF CARE. PATIENT IS SITTING UP IN HIGH FOWLERS POSITION. SHE IS A&O X2. PATIENT IS ON HIGH FLOW OXYGEN, 40 LITERS. PATIENT O2 STAT IS AT 100% AND BREATHING IS UNLABORED. NO RESPIRATORY DISTRESS NOTED. PATIENT IS ON TELE MONITORING. SHORE CATHETER IN PLACE, DRAINING STRAW COLOR URINE. SKIN IS WARM AND DRY. MULTIPLE WOUNDS ON SACRAL AND BILATERAL EXTREMITIES. BREAK DOWN ON ABDOMINAL FOLDS. DRESSING IS DRY AND INTACT. RIGHT UPPER ARM PICC LINE IN PLACE ON SALINE LOCK. FALL AND STANDARD PRECAUTIONS IN PLACE. PATIENT IS STABLE. PLAN OF CARE DISCUSSED. CALL LIGHT WITHIN REACH. WILL CONTINUE TO MONITOR.
--- NOTE | 2020-09-01 20:27 | NUR ---
HIGH FLOW MACHINE ALARMING. O2 SAT 100%. RT WAS CALLED TO BEDSIDE. NO ALARMING SOUNDING ANYMORE. PT IS STABLE.
--- NOTE | 2020-09-01 21:45 | NUR ---
ROUNDED ON PATIENT. PATIENT ASLEEP COMFORTABLY IN BED, O2 STAT AT 100%. DRESSING ON LOWER BILATERAL EXTREMITIES CLEAN AND INTACT. 10 CC OF STRAW COLOR URINE NOTED FOR OUTPUT. SAFETY MEASURES IN PLACE. WILL CONTINUE TO MONITOR.
--- NOTE | 2020-09-01 22:20 | NUR ---
RT, COLE, AT BEDSIDE PLACING BIPAP ON PT FOR SLEEP APNEA. O2 SAT IS 99%. BREATHING IS UNLABORED. PT IS STABLE.
--- NOTE | 2020-09-01 22:27 | NUR ---
RT, COLE AT BEDSIDE. BIPAP CHANGED TO FIO2 40%. PRESSURE IS 18/8 AND RATE IS 12. PATIENT O2 SAT AT 100%, BREATHING IS UNLABORED. SR ON TELE MONITORING.
--- NOTE | 2020-09-01 22:27 | NUR ---
PT REMOVED FROM HFNC AND NOC NIV INITIATED ON SETTINGS PREV SET 18/8 f12 45%. BIPAP PLUGGED INTO RED OUTLET W/ ALARMS ON + AUDIBLE. HFNC REMAINS AT BEDSIDE ON STDBY WILL CONTINUE TO MONITOR
--- NOTE | 2020-09-01 23:25 | NUR ---
EMPTIED SHORE CATH COLLECTION BAG AND URINE OUTPUT IS 50 ML, STRAW COLOR AND FOUL SMELLING SINCE 1930.
--- NOTE | 2020-09-01 23:35 | NUR ---
PERFORMED BLADDER SCAN ON PATIENT. VOLUME RESULTED IN 0 ML, DESPITE MULTIPLE ATTEMPTS. DIFFICULTY TO ASSESS DUE TO OBESITY. ABDOMEN IS ROUND, LARGE, SOFT. WILL NOTIFY THE PHYSICIAN ABOUT FINDING.
--- NOTE | 2020-09-01 23:45 | NUR ---
NOTIFIED DOCTOR JAGDEEP VIA TEXT MESSAGE THAT PATIENT HAD 50 ML URINE OUTPUT THAT WAS STRAW COLOR AND FOUL SMELLING SINCE 1930PM. ALSO REPORTED THAT BLADDER SCAN RESULTED IN 0 ML VOLUME POSSIBLY DUE TO DIFFICULTY TO ASSESS DUE TO OBESITY. REPORTED THAT PATIENTS SHORE CATH WAS INSERTED ON 08/20/20. WILL WAIT FOR DOCTORS RESPONSE.
[2020-09-02] VITALS (9 sets, daily range): BP systolic 84–109; BP diastolic 50–67
--- NOTE | 2020-09-02 00:03 | NUR ---
FIO2 TITRATED TO 40% PT TOLERATING WELL SPO2 95% 10 MIN POST TITRATION
[2020-09-02] MEDS: NYSTATIN POW 100 MU/GM 15 GM BTL TP SCH ×2 (00:19→13:11)
--- NOTE | 2020-09-02 00:20 | NUR ---
PT'S BP IS 93/[address] GANNON TO INFORM HIM OF THE BP AND UOP. WILL WAIT FOR CALL BACK.
--- NOTE | 2020-09-02 00:50 | NUR ---
REASSESED PT'S BP AND IT WAS 80/50 AND HR 66. WILL WAIT FOR CALL BACK FROM DR. GANNON TO INFORM HIM OF DECREASED BP.
--- NOTE | 2020-09-02 01:40 | NUR ---
RECEIVED A CALL BACK FROM DR. GANNON. INFORMED HIM THAT PT'S BP HAS BEEN FLUCTUATING THE PAST TWO HOURS. TOLD HIM WHEN I ORIGINALLY PAGED HIM BP WAS 80/50 AND HR 66, BUT CURRENT BP READING WAS 104/71 AND HR 75. ALSO INFORMED HIM THAT PT'S UOP HAS BEEN 50 ML SINCE 1930 PM. ALSO STATED THAT URINE WAS STRAW COLORED AND FOUL SMELLING. SAID THAT SHORE CATH WAS INSERTED ON 08/20/20. DOCTOR ORDERED FOR NEW SHORE TO BE PLACED AND URINE CULTURE TO BE COLLECTED. DR. GANNON ALSO ORDERED ONE LITER OF NS FLUIDS TO BE GIVEN AT 100 ML/HR ONE TIME DOSE. DOCTOR AWARE THAT PT IS CHF PATIENT. WILL FOLLOW THROUGH WITH ORDERS SHORTLY. WILL MONITOR UOP.
[2020-09-02] MEDS ORDERED: NACL 0.9% 1,000 ML IV SCH (02:00)
--- NOTE | 2020-09-02 02:04 | NUR ---
EDUCATION PROVIDED TO PATIENT ABOUT REMOVAL OF CATHETER AND INSERTING A NEW CATHETER. PER DOCTORS ORDER, DISCONTINUED SHORE CATH THAT WAS PLACED ON 08/20/20. 14CC REMOVED PRIOR TO REMOVAL, CATHETER TIP INTACT. PATIENT TOLERATED DISCONTINUATION. ALFA CARE PROVIDED PRIOR TO INSERTION OF SHORE CATHETER. INSERTION OF SHORE CATHETER. 10 CC USED TO INFLATE CATHETER BALLOON. NaCl RUNNING AT 100 ML/HR ALSO HUNG. PICC LINE PATENT AND INTACT. PATIENT EDUCATED ON FLUIDS. PATIENT BED RETURNED TO LOWEST POSITION, CALL LIGHT WITHIN REACH. SAFETY MEASURES IN PLACE. WILL CONTINUE TO MONITOR.
--- NOTE | 2020-09-02 03:41 | NUR ---
ROUNDED ON PATIENT, PATIENT RESTING COMFORTABLY IN BED. RT AT BEDSIDE ASSESSING BIPAP MACHINE. O2 SAT AT 100%. PATIENT SHOWS NO SIGNS OF DISTRESS. SAFETY MEASURES IN PLACE. WILL CONTINUE TO MONITOR.
--- NOTE | 2020-09-02 03:45 | NUR ---
MASK RE-ADJUSTED
--- NOTE | 2020-09-02 05:42 | NUR ---
ROUNDED ON PATIENT. PATIENT RESTING COMFORTABLE WITH NO SIGNS OF ACUTE DISTRESS. O2 SAT AT 100%. SAFETY MEASURES IN PLACE, WILL CONTINUE TO MONITOR.
[2020-09-02 05:44] LABS: BASOPHILS % (AUTO) 0.6 % (0.0-2.0); EOSINOPHILS # (AUTO) 0.2 K/uL (0-0.4); EOSINOPHILS % (AUTO) 2.7 % (0.0-4.0); HEMATOCRIT 28.7 % (36-48); HEMOGLOBIN 9.2 g/dL (12.0-16.0); LYMPHOCYTES # (AUTO) 0.7 K/uL (2.5-16.5); LYMPHOCYTES % (AUTO) 10.3 % (20.5-51.1); MEAN CORPUSCULAR HEMOGLOBIN 31 pg (27-31); MEAN CORPUSCULAR HGB CONC 32 g/dL (33-37); MEAN CORPUSCULAR VOLUME 96.2 fL (80-94); MONOCYTES # (AUTO) 0.4 K/uL (0.8-1.0); MONOCYTES % (AUTO) 6.6 % (1.7-9.3); NEUTROPHILS # (AUTO) 5.1 K/uL (1.8-7.7); NEUTROPHILS % (AUTO) 79.8 % (42.2-75.2); PLATELET COUNT (AUTO) 265 K/uL (140-450); RED BLOOD CELL COUNT(AUTO) 2.99 MIL/uL (4.20-5.40); RED CELL DISTRIBUTION WIDTH 18.1 % (11.6-13.7); WHITE BLOOD COUNT (AUTO) 6.4 K/uL (4.8-10.8)
[2020-09-02 05:57] LABS: ALBUMIN 2.5 g/dL (3.4-5.0); ANION GAP 4.9 (8-16); CARBON DIOXIDE 38.1 mmol/L (21-32); CREATININE 1.8 mg/dL (0.6-1.3); TOTAL BILIRUBIN 0.5 mg/dL (0.0-1.0)
[2020-09-02] MEDS: LEVOTHYROXINE 0.025 MG TAB NG SCH (06:01)
[2020-09-02] MEDS: MIDODRINE 5 MG TAB PO SCH ×3 (06:01→19:28)
--- NOTE | 2020-09-02 06:27 | NUR ---
INFORMED DR. GANNON THAT PATIENTS URINE OUTPUT HAS STILL BEEN LOW, 55ML SINCE 0230. ALSO INFORMED HIM THIS RESULT IS AFTER STARTING FLUIDS AT 100 ML PER HOUR ORDERED AND INSERTING A NEW SHORE CATHETER AT 0200AM. WILL WAIT FOR RESPONSE.
--- NOTE | 2020-09-02 07:20 | NUR ---
RCV'D PT ON BIPAP. BIPAP CONNECTED TO RED OUTLET. ALARMS AUDIBLE. PT TOLERATING BIPAP WELL. PT ASLEEP. NO SOB OR DISTRESS NOTED. WILL CONTINUE TO MONITOR.
--- NOTE | 2020-09-02 07:25 | NUR ---
ENDORSED PT TO DAY SHIFT NURSE FOR CONTINUITY OF CARE. PT IS STABLE. O2 SAT IS 100% ON BIPAP. NO RESPIRATORY DISTRESS NOTED. ENDORSED DECREASED URINE OUTPUT TO DAY SHIFT NURSE. PLAN OF CARE DISCUSSED.
--- NOTE | 2020-09-02 07:30 | NUR ---
PT RECEIVED FROM MASS SPEC NURSE. PT IN BED RESTING COMFORTABLY EYES OPEN. ON BIPAP. NO S/S OF DISTRESS AT THIS TIME. CALL LIGHT IS WITHIN REACH. ALL SAFETY MEASURES ARE IN PLACE.
--- NOTE | 2020-09-02 08:06 | NUR ---
RT AT BEDSIDE. PER RT BIPAP WILL BE REMOVED WHEN PT IS EATING BREAKFAST. PT RESTING COMFORTABLY EYES CLOSED EASY TO AROUSE.
--- NOTE | 2020-09-02 08:42 | NUR ---
PT IN BEDSIDE. PT TOLERATED WELL. ACTIVE EXERCISES DONE. PT REFUSED TO GET UP AND AMBULATE. PT DISTRACTED BY BREAKFAST. PT BACK IN BED WATCHING CARTOONS.
--- NOTE | 2020-09-02 09:05 | NUR ---
BIPAP OFF. PT WANTS TO EAT. HIGH FLOW IS ON WITH SETTINNGS FIO2 85% FLOW 40 SPO2 ON HIGH FLOW IS 95%. TARIK SIU AWARE. WILL CONTINUE TO MONITOR PATIENT.
--- NOTE | 2020-09-02 09:50 | NUR ---
MEDICATIONS GIVEN PER MD ORDER. PT EDUCATED VERBALIZED UNDERSTANDING. REINFORCEMENT NEEDED. CALL LIGHT WITHIN REACH. REORIENTED TO ROOM.
[2020-09-02] MEDS: ENOXAPARIN 40 MG/0.4 ML SYR SUBQ SCH (09:57)
[2020-09-02] MEDS: ASCORBIC ACID 500 MG/5 ML ORASYR PO SCH (09:57)
[2020-09-02] MEDS: PANTOPRAZOLE 40 MG INJ VIAL IVP SCH (09:58)
[2020-09-02] MEDS: ASPIRIN 81 MG TAB.CHEW NG SCH (09:59)
[2020-09-02] MEDS: ATORVASTATIN 20 MG TAB NG SCH (09:59)
[2020-09-02] MEDS: MULTIVITAMIN/MINERALS 1 TAB PO SCH (09:59)
[2020-09-02] MEDS: LACTOBACILLUS RHAMNOSUS GG 1 EACH CAP PO SCH (09:59)
--- NOTE | 2020-09-02 10:23 | NUR ---
PT IN BED RESTING EYES CLOSED 02% 100%
[2020-09-02] MEDS ORDERED: FUROSEMIDE 40 MG/4 ML VIAL IVP SCH (12:00)
--- NOTE | 2020-09-02 12:21 | NUR ---
MEDICATIONS GIVEN PER MD ORDER. PT EDUCATED REINFORCEMENT NEEDED. NO S/S OF DISTRESS AT THIS TIME BP IS 93/54
[2020-09-02] MEDS: ALBUMIN HUMAN 25% 50 ML IV SCH ×2 (12:56→20:57)
[2020-09-02] MEDS: GAUZE TP SCH (13:11)
[2020-09-02] MEDS: THERAHONEY GEL 42.5 GM TP SCH (13:12)
--- NOTE | 2020-09-02 14:41 | NUR ---
PT REASSESSED AFTER ALBUMIN ADMINISTRATION . BP IS 92/51
--- NOTE | 2020-09-02 15:09 | NUR ---
PTS BP REASSESSED.
[2020-09-02] MEDS: FUROSEMIDE 100 MG in DEXTROSE 5% 90 ML IV SCH (15:19)
--- NOTE | 2020-09-02 15:27 | NUR ---
PT STARTED ON LASIX DRIP PER MD ORDER. DOUBLE VERIFIED WITH SOAP MAKER. PT STABLE. NO S/S OF DISTRESS AT THIS TIME.
--- NOTE | 2020-09-02 16:16 | NUR ---
PTS BLOOD PRESSURE REASSESSED. 109/71 . PT REPOSITIONED AND SACRAL WOUND CARE PERFORMED . MAXIMUM ASSISTANCE 3 NURSES NECESSARY.
--- NOTE | 2020-09-02 17:57 | NUR ---
PT IN BED RESTING EYES CLOSED. NO S/S PF DISTRESS AT THIS TIME
--- NOTE | 2020-09-02 19:15 | NUR ---
PT ENDORSED TO TRIMMER MEAT RN.
--- NOTE | 2020-09-02 19:30 | NUR ---
RECEIVED REPORT FROM SALBADOR MONTANEZ DAYSHIFT NURSE AT BEDSIDE FOR CONTINUITY OF CARE, PT IN STABLE CONDITION.
[2020-09-02 19:41] LABS: BILIRUBIN,URINE NEGATIVE (NEGATIVE); BLOOD, URINE 3+ (NEGATIVE); COLOR,URINE YELLOW (YELLOW); LEUKOCYTE ESTERASE ,URINE 1+ (NEGATIVE); NITRITE, URINE NEGATIVE (NEGATIVE); PH,URINE 5.5 (5.0-9.0); UGLUCOSE NEGATIVE (NEGATIVE)
--- NOTE | 2020-09-02 20:00 | NUR ---
PT SITTING UP IN BED HOB UP 45%. PT IS AOX2 SHE IS AROUSABLE TO NAME AND LIGHT SHAKING. PT IS ON 40 LITERS HI FLOW N/C. SHE HAS A RIGHT UPPER ARM PICC LINE DOUBLE LUMEN RUNNING LASIX GTT AT 10GTT AN HOUR. AND NORMAL SALINE AT 5MLS/ TO KVO. PT ALSO NOTED WITH PLUS 3 PITTING EDEMA OF LOWER LIMBS, SHE HAS DRESSING ON LOWER LIMB INTACT AND ASYMPTOMATIC. SHE HAS A SHORE CATHETER INTACT AND IT HAS DRAINED 150MLS OF LIGHT YELLOW URINE. V/S FOLLOWS: T 97.7 P 65 R 18 B/P 104/67 02 94% PT DENIES ANY PAIN ALL ORDERED PRECAUTIONS IN PLACE.
[2020-09-02 21:00] LABS: APPEARANCE,URINE HAZY (CLEAR)
--- NOTE | 2020-09-02 21:00 | NUR ---
PT IN BED AROUSABLE TO NAME AND LIGHT SHAKING. PT WAS GIVEN ORDERED IV ALBUMIN HUNG AND RUNNING AT 50MLS/HR. PT PROVIDED EDUCATION REGARDING MEDICATION AT BEDSIDE, REINFORCEMENT NEEDED, PT VERBALIZED UNDERSTANDING.
[2020-09-02 21:08] LABS: RBC,URINE 0-5 /HPF (0-5); WBC,URINE 0-5 /HPF (0-5)
--- NOTE | 2020-09-02 21:40 | NUR ---
PLACED PATIENT ON BI-PAP WITH PREVIOUS SETTINGS, BI-PAP IS ORDERED FOR THE PATIENT DURING SLEEP AT NIGHT, INFORMED RN PATIENT PLACED ON BI-PAP, PT IS TOLERATING WELL, NO SIGN OF DISTRESS, PT IS RESTING COMFORTABLY, WILL CONTINUE TO MONITOR.
--- NOTE | 2020-09-02 22:50 | NUR ---
PT WAS TURNED AND REPOSITIONED IN BED WITH ASSISTANCE, SHE CONTINUES ON BIPAP AND LASIX GTT.
[2020-09-03] VITALS (7 sets, daily range): BP systolic 91–123; BP diastolic 57–87
--- NOTE | 2020-09-03 00:30 | NUR ---
PT REMAINS ON BIPAP HOB UP 45% PT RESTING BUT AROUSABLE TO NAME AND LIGHT SHAKING. PT DECLINES TO BE REPOSITIONED AT THIS TIME V/S FOLLOWS; T 97.7 P 65 R 18 B/P 104/67 02 94% ON BI PAP SETTINGS. ALL ORDERED PRECAUTIONS IN PLACE.
[2020-09-03] MEDS: FUROSEMIDE 100 MG in DEXTROSE 5% 90 ML IV SCH ×2 (01:47→12:32)
--- NOTE | 2020-09-03 02:21 | NUR ---
PT ASLEEP IN BED HOB UP 45% NEW BAG OF LASIX HELD AND SHE CONTINUES ON 10 GTT AN HOUR. PT CONTINUES DIURESES OF LIGHT YELLOW URINE. ALL ORDERED PRECAUTIONS IN PLACE.
--- NOTE | 2020-09-03 04:00 | NUR ---
PT WAS TURNED, AND REPOSITIONED IN BED DRESSING ON SACRAL WOUND CHANGED, NO DRAINAGE NOTED. DRESSINGS ON BILATERAL LOWER LEGS INTACT. V/S FOLLOWS: T 97.0 P 83 R 14 B/P 112/71 02 97%. ALL ORDERED PRECAUTIONS IN PLACE.
[2020-09-03 05:31] LABS: BASOPHILS % (AUTO) 0.7 % (0.0-2.0); EOSINOPHILS # (AUTO) 0.2 K/uL (0-0.4); EOSINOPHILS % (AUTO) 3.4 % (0.0-4.0); HEMATOCRIT 27.4 % (36-48); HEMOGLOBIN 8.6 g/dL (12.0-16.0); LYMPHOCYTES # (AUTO) 0.9 K/uL (2.5-16.5); LYMPHOCYTES % (AUTO) 14.3 % (20.5-51.1); MEAN CORPUSCULAR HEMOGLOBIN 31 pg (27-31); MEAN CORPUSCULAR HGB CONC 31 g/dL (33-37); MEAN CORPUSCULAR VOLUME 97.1 fL (80-94); MONOCYTES # (AUTO) 0.4 K/uL (0.8-1.0); MONOCYTES % (AUTO) 6.3 % (1.7-9.3); NEUTROPHILS # (AUTO) 4.6 K/uL (1.8-7.7); NEUTROPHILS % (AUTO) 75.3 % (42.2-75.2); PLATELET COUNT (AUTO) 279 K/uL (140-450); RED BLOOD CELL COUNT(AUTO) 2.82 MIL/uL (4.20-5.40); RED CELL DISTRIBUTION WIDTH 18.3 % (11.6-13.7); WHITE BLOOD COUNT (AUTO) 6.1 K/uL (4.8-10.8)
[2020-09-03] MEDS: LEVOTHYROXINE 0.025 MG TAB NG SCH (05:56)
[2020-09-03] MEDS: ALBUMIN HUMAN 25% 50 ML IV SCH ×3 (06:01→21:24)
[2020-09-03] MEDS: NYSTATIN POW 100 MU/GM 15 GM BTL TP SCH ×2 (06:06→13:16)
[2020-09-03] MEDS: MIDODRINE 5 MG TAB PO SCH ×3 (06:09→18:30)
--- NOTE | 2020-09-03 06:10 | NUR ---
PRIMIDONE NOT GIVEN DUE TO B/P IS 112/71. PT GIVEN ORDERED SYNTHROID. LASIX CONTINUES AT 10GTT/HR. URINE OUTPUT IS 1250 MLS OF LIGHT YELLOW URINE. ALL ORDERED PRECAUTIONS IN PLACE.
[2020-09-03 07:06] LABS: ALBUMIN 2.7 g/dL (3.4-5.0); ANION GAP 5.1 (8-16); CARBON DIOXIDE 37.9 mmol/L (21-32); CREATININE 2.1 mg/dL (0.6-1.3); TOTAL BILIRUBIN 0.4 mg/dL (0.0-1.0)
--- NOTE | 2020-09-03 07:15 | NUR ---
RCV'D PT ON BIPAP WITH CHARTED SETTINGS. PT IS ASLEEP AND TOLERATING BIPAP WELL. NO SOB OR DISTRESS NOTED. BIPAP CONNECTED TO RED OUTLET. ALARMS AUDIBLE. WILL CONTINUE TO MONITOR PATIENT.
--- NOTE | 2020-09-03 07:30 | NUR ---
RECEIVED REPORT FROM NIGHT NURSE PATIENT IS SLEEPING ON BIPAP AT 40 LITERS HIGH FLOW, LUNG SOUND DIMINISHED, BEDBOUND, WITH SHORE CATHETER,STRICT INPUT AND OUTPUT,LE SWELLING, SKIN NON INTACT, IV INTACT ON RIGHT UA PICC LINE DOUBLE LUMEN, SAFETY MEASURES IN PLACE AND CALL LIGHT WITHIN REACH. WILL CONTINUE TO MONITOR.
[2020-09-03] MEDS: MULTIVITAMIN/MINERALS 1 TAB PO SCH (09:04)
[2020-09-03] MEDS: PANTOPRAZOLE 40 MG INJ VIAL IVP SCH (09:04)
[2020-09-03] MEDS: LACTOBACILLUS RHAMNOSUS GG 1 EACH CAP PO SCH (09:05)
[2020-09-03] MEDS: ASCORBIC ACID 500 MG/5 ML ORASYR PO SCH (09:05)
[2020-09-03] MEDS: ASPIRIN 81 MG TAB.CHEW NG SCH (09:05)
[2020-09-03] MEDS: ATORVASTATIN 20 MG TAB NG SCH (09:05)
[2020-09-03] MEDS: ENOXAPARIN 40 MG/0.4 ML SYR SUBQ SCH (09:06)
--- NOTE | 2020-09-03 09:17 | NUR ---
MEDICATION DUE GIVEN CHECK VITAL SIGNS PRIOR TO MEDICATION BP 107/67 [place] 93. PT ON 40 LITERS HIGH FLOE VIA NC, PT TOLERATED WELL NO DISTRESS NOTED. SAFETY MEASURES IN PLACE AND CALL LIGHT WITHIN REACH WILL CONTINUE TO MONITOR.
--- NOTE | 2020-09-03 12:38 | NUR ---
LASIX DRIP AT 10MG/HR AND ALBUMIN 25% 50 ML AT 50 MLS/HR GIVEN., MIDODRINE 5 MG HELD PT VITAL SIGNS ARE BP 123/87 CO 91. NO DISTRESS NOTED.
--- NOTE | 2020-09-03 12:47 | NUR ---
DECREASED FIO2 ON HIGH FLOW TO 75% SPO2 IS 96%. RN AWARE. NO SOB OR DISTRESS NOTED. PT IS AWAKE AND WATCHING TV. WILL CONTINUE TO MONITOR.
[2020-09-03] MEDS: GAUZE TP SCH (13:16)
[2020-09-03] MEDS: THERAHONEY GEL 42.5 GM TP SCH (13:17)
--- NOTE | 2020-09-03 13:26 | NUR ---
PATIENTS RIGHT CHEST [employer] PROFESSOR SCAR DRY AND INTACT, RIGHT AND LEFT LEG DRY AND INTACT REINFORCED DRESSING WITH HEEL PROTECT.
--- NOTE | 2020-09-03 14:23 | NUR ---
09/03/20 RD FOLLOW UP COMPLETED PLEASE REFER TO NUTRITION ASSESSMENT UNDER CARE ACTIVITY FOR ESTIMATED NUTRITIONAL NEEDS. 1. CONTINUE PUREE DIET WITH NECTAR THICK LIQUIDS 2. RECOMMEND ENSURE ONCE DAILY WHEN PATIENT HAS POOR APPETITE 3. CONTINUE MVI DAILY AND VITAMIN C 500 MG DAILY TO PROMOTE WOUND HEALING 4. RD TO FOLLOW-UP 3-5 DAYS, MODERATE RISK KIERA BOURNE RD
--- NOTE | 2020-09-03 17:00 | NUR ---
MONITOR PATIENT AND CHECK VITAL SIGNS BP 97/64 ND 90 OXYGEN SATURATION AT 99% ON 40 LITERS HIGH FLOW
--- NOTE | 2020-09-03 18:32 | NUR ---
MEDICATION DUE GIVEN PT IS STABLE AND NO DISTRESS NOTED.
--- NOTE | 2020-09-03 19:25 | NUR ---
ENDORSED TO NIGHT NURSE FOR CONTINUITY OF CARE. PT IS STABLE.
--- NOTE | 2020-09-03 19:30 | NUR ---
RECEIVED REPORT FROM ZAIN MONTANEZ DAYSHIFT NURSE AT BEDSIDE FOR CONTINUITY OF CARE, PT IN STABLE CONDITION. PT IS LYING IN BED HOB UP 90% SHE IS AROUSABLE TO NAME AND IS ON 40 LITERS HI FLOW N/C. PT HAS RIGHT UPPER PICC LINE RUNNING LASIX AT 10 GTT AN HR. PT ALSO HAS SHORE CATHETER INTACT AND DRAINING YELLOW URINE. PT APPEARS COMFORTABLE NO C/O VOICED, AND ALL ORDERED PRECAUTIONS IN PLACE.
--- NOTE | 2020-09-03 20:00 | NUR ---
PT IN BED RESTING WITH EYES CLOSED AND ON HI FLOW N/C AT 40 LITERS . PT ALSO HAS SHORE CATHETER INTACT AND DRAINING YELLOW URINE. PT CONTINUES TO HAVE PLUS 2 PITTING EDEMA ON BILATERAL LOWER EXTREMITIES. LASIX CONTINUES AT 10MLS/HR. PICC LINE DOUBLE LUMEN FLUSHED PATENT. DRESSINGS TO LOWER EXTREMITIES DRY AND INTACT. V/S FOLLOWS: T 98.4 P 62 R 18 B/P 91/57 02 99%. ALL ORDERED PRECAUTIONS IN PLACE.
--- NOTE | 2020-09-03 21:00 | NUR ---
ORDERED ALBUMIN HUNG AND RUNNING AT 50MLS/HR ORDERED. TEACHING PROVIDED AT BEDSIDE, PT NEEDED REINFORCEMENT BUT VERBALIZED UNDERSTANDING. ALL ORDERED PRECAUTIONS IN PLACE.
--- NOTE | 2020-09-03 22:00 | NUR ---
ALBUMIN COMPLETED, PT PLACED ON BIPAP BY RT. ALL ORDERED PRECAUTIONS IN PLACE.
--- NOTE | 2020-09-03 23:00 | NUR ---
RT ADJUSTED BIPAP MASK DUE TO PT BIPAP MACHINE ALARMING. PT WAS TRYING TO ADJUST MASK HERSELF. PT REMINDED NOT TO TRY AND ADJUST MASK HERSELF BECAUSE IT MAY CAUSE AN AIR LEAK. PT WA ALSO TURNED AND REPOSITIONED IN BED. DRESSING TO SACRAL AREA INTACT. LASIX GTT CONTINUERS ORDERED. ALL ORDERED PRECAUTIONS IN PLACE.
[2020-09-04] VITALS (10 sets, daily range): BP systolic 101–122; BP diastolic 60–75
--- NOTE | 2020-09-04 00:15 | NUR ---
PT IN BED ASLEEP WITH NO S/S OF PAIN OR DISTRESS. SHE IS ON BIPAP AT THIS TIME. LASIX CONTINUES ORDERED V/S FOLLOWS; T 98.4 P 85 R 22 B/P 108/60 02 100%. ALL ORDERED PRECAUTIONS IN PLACE.
[2020-09-04] MEDS: NYSTATIN POW 100 MU/GM 15 GM BTL TP SCH (02:27)
[2020-09-04] MEDS: FUROSEMIDE 100 MG in DEXTROSE 5% 90 ML IV SCH (03:56)
--- NOTE | 2020-09-04 04:00 | NUR ---
PT WAS TURNED AND REPOSITIONED IN BED V/S FOLLOWS: T 97.9 P 77 R 16 B/P 1113/73 02 99% WITH CURRENT BIPAP SETTINGS. ALL ORDERED PRECAUTIONS IN PLACE.
[2020-09-04 05:15] LABS: BASOPHILS # (AUTO) 0.1 K/uL (0.00-0.22); BASOPHILS % (AUTO) 0.7 % (0.0-2.0); EOSINOPHILS # (AUTO) 0.2 K/uL (0-0.4); EOSINOPHILS % (AUTO) 2.6 % (0.0-4.0); HEMATOCRIT 26.6 % (36-48); HEMOGLOBIN 8.3 g/dL (12.0-16.0); LYMPHOCYTES # (AUTO) 0.9 K/uL (2.5-16.5); LYMPHOCYTES % (AUTO) 11.8 % (20.5-51.1); MEAN CORPUSCULAR HEMOGLOBIN 30 pg (27-31); MEAN CORPUSCULAR HGB CONC 31 g/dL (33-37); MEAN CORPUSCULAR VOLUME 95.6 fL (80-94); MONOCYTES # (AUTO) 0.5 K/uL (0.8-1.0); MONOCYTES % (AUTO) 6.2 % (1.7-9.3); NEUTROPHILS # (AUTO) 5.8 K/uL (1.8-7.7); NEUTROPHILS % (AUTO) 78.7 % (42.2-75.2); PLATELET COUNT (AUTO) 273 K/uL (140-450); RED BLOOD CELL COUNT(AUTO) 2.78 MIL/uL (4.20-5.40); WHITE BLOOD COUNT (AUTO) 7.4 K/uL (4.8-10.8)
[2020-09-04] MEDS: ALBUMIN HUMAN 25% 50 ML IV SCH (05:15)
[2020-09-04] MEDS: LEVOTHYROXINE 0.025 MG TAB NG SCH (05:32)
[2020-09-04 05:33] LABS: ALBUMIN 3.1 g/dL (3.4-5.0); ANION GAP 3.5 (8-16); CREATININE 2.1 mg/dL (0.6-1.3); POTASSIUM 3.8 mmol/L (3.5-5.1); TOTAL BILIRUBIN 0.5 mg/dL (0.0-1.0)
[2020-09-04] MEDS: MIDODRINE 5 MG TAB PO SCH ×3 (05:35→19:18)
--- NOTE | 2020-09-04 06:00 | NUR ---
PT DRESSINGS CHANGED ON HER LEGS SACRAL DRESSING DRY AND INTACT. ALBUMIN HUNG AND RUNNING AT 50MLS/HR ORDERED PT GIVEN SCHEDULED SYNTHROID, EDUCATION REGARDING MEDICATION PURPOSE EXPLAINED AT BEDSIDE, PT VERBALIZED UNDERSTANDING.
[2020-09-04 06:04] LABS: CARBON DIOXIDE 41.3 mmol/L (21-32)
--- NOTE | 2020-09-04 06:20 | NUR ---
MIDODRINE HELD B/P IS 115/73 CRITICAL LAB RECEIVED C02 AT 41.3 TEXTED DEAD MAIL CHECKER MD GANNON NO NEW ORDERS NOTED. ALL ORDERED PRECAUTIONS IN PLACE.
--- NOTE | 2020-09-04 07:25 | NUR ---
REC'D REPORT FROM COST REPORT CLERK NURSE PT ON BIPAP WITH SETTINGS OF IPAP 18, RATE 14, EPAP 8, PER COST REPORT CLERK NURSE PT IS ON BIPAP AT NIGHT AND HI FLOW DURING THE DAY, RESP THERAPIST TO COME AND CHANGE. PT SLEEPING. R. PICC CURRENTLY INFUSING FUROSEMIDE DRIP AT 10ML/HR. PT HAS TELEMONITOR IN PLACE, ED. HEEL PROTECTORS, ED LOWER EXTREMITIES ARE DRESSED WITH BANDAGES. ALL SAFETY MEASURES IN PLACE, WILL CONTINUE TO MONITOR
[2020-09-04] MEDS: PANTOPRAZOLE 40 MG INJ VIAL IVP SCH (10:00)
[2020-09-04] MEDS: ATORVASTATIN 20 MG TAB NG SCH (10:01)
[2020-09-04] MEDS: ASPIRIN 81 MG TAB.CHEW NG SCH (10:01)
[2020-09-04] MEDS: LACTOBACILLUS RHAMNOSUS GG 1 EACH CAP PO SCH (10:01)
[2020-09-04] MEDS: MULTIVITAMIN/MINERALS 1 TAB PO SCH (10:01)
--- NOTE | 2020-09-04 10:01 | NUR ---
ADMINISTERED MEDICATION PER MD ORDER . MOA AND SIDE EFFECTS EXPLAINED TO PT WHO COULD NOT VERBALIZE UNDERSTANDING, MEDICATIONS WERE CRUSHED WITH APPLESAUCE, PT TOLERATED MEDICATION ADMINISTRATION WELL. WILL CONTINUE TO MONITOR
[2020-09-04] MEDS: ASCORBIC ACID 500 MG/5 ML ORASYR PO SCH (10:02)
[2020-09-04] MEDS: ENOXAPARIN 40 MG/0.4 ML SYR SUBQ SCH (10:02)
--- NOTE | 2020-09-04 10:45 | NUR ---
WOUND CARE RE-EVALUATION NOTE: SKIN ASSESSMENT AND MEASUREMENT DONE WITH PRIMARY RN. PT ASSIST WITH REPOSITION AND RT AT BED SIDE PT. DE SAT TO 80 WHEN TURN AND REPOSITION. PT. IS AAX4 DURING ASSESSMENT. PT'S INTERTRIGO RESOLVED. RIGHT ISCHIUM PI RESURFACING POC DISCUSSED TO PT. AND NEED REINFORCEMENT. POC DISCUSSED WITH PRIMARY RN. INTEGUMENTARY: -INTERTRIGO TO BILATERAL UNDER BREAST, LOWER ABDOMINAL FOLDS AND GROINS RESOLVED AREAS DRY ,APPLY INTER DRY CLOTH Q 7 DAYS AND PRN MAINTENANCE -BLE SEVERE XEROSIS SKIN WITH NO OPEN ACTIVE WOUND, MULTIPLE BLISTER LIKE BUMPS, ORANGE SKIN, MULTIPLE DRY SCABS. 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 RECOMMENDATIONS: -APPLY INTER DRY CLOTH TO UNDER BREAST, LOWER ABDOMINAL FOLDS AND GROINS ,CHANGE Q7 DAYS AND PRN SOILING MAINTENANCE\ -APPLY THIN LAYER OF Z GUARD TO LEFT ISCHIUM MAD AND RIGHT ISCHIUM PER-WOUND SKIN BID AND WENDI. -CONTINUE XEROFORM DRESSING TO BLE 3X/WEEK
--- NOTE | 2020-09-04 11:01 | NUR ---
IV FUROSEMIDE DRIP DISCONTINUED PER MD, DRIP REMOVED FROM PATIENT AND BEDSIDE,
[2020-09-04] MEDS: ACETAZOLAMIDE SOD 250 MG TAB PO SCH ×2 (11:40→20:10)
--- NOTE | 2020-09-04 11:45 | NUR ---
PT SLEEPING, NO SIGN OF DISTRESS
[2020-09-04] MEDS: THERAHONEY GEL 42.5 GM TP SCH (13:00)
[2020-09-04] MEDS: GAUZE TP SCH (13:00)
[2020-09-04] MEDS: Z-GUARD PASTE TP SCH (13:00)
--- NOTE | 2020-09-04 13:23 | NUR ---
PT SLEEPING, NO SIGN OF DISTRESS
--- NOTE | 2020-09-04 14:45 | NUR ---
PT REC'D GREETING CARD IN MAIL, READ CARD TO PT WHICH CONTAINED A $20BILL, PT'S GREETING CARD CONTAINING GRAVES WAS PLACED IN CLEAR BAG WITH BELONGINGS,
--- NOTE | 2020-09-04 15:50 | NUR ---
TRANSFERRED PT TO NEW BED. PT TOLERATED PROCEDURE WELL
--- NOTE | 2020-09-04 17:25 | NUR ---
PT SLEEPING , NO SIGN OF DISTRESS
--- NOTE | 2020-09-04 18:31 | NUR ---
PT WATCHING TV NO SIGN OF DISTRESS. ALL SAFETY MEASURES ARE IN PLACE
--- NOTE | 2020-09-04 19:14 | NUR ---
PATIENT ENDORSED BY DAY SHIFT, NAKUL, FOR CONTINUITY OF CARE. PATIENT IN STABLE CONDITION WITH NO ACUTE SIGNS OF DISTRESS. PATIENT IS ALERT AND ORIENTED X2. PATIENT ON TELEMONITOR SHOWING SINUS RHYTHM. PATIENT ON HIGH FLOW AT 40L, O2 SAT AT 96%. PATIENT HAS A SHORE CATHETER IN PLACE, DRAINING YELLOW URINE. PATIENT HAS AN ORDER OF STRICT INTAKE AND OUTPUT. PROTEIN WAS NOTED IN THE URINE DURING DAY SHIFT, ORDER OF ROCEPHIN SCHEDULED FOR 2100. PATIENT HAS A RIGHT GLUTEUS HEALED WOUND MEASURING AT 5.5 CM WITH PARTIAL THICK SKIN LOSE. PATIENT HAS CELLULITES OF LOWER EXTREMITIES WITH DRESSING CHANGE DRY, CLEAN AND INTACT. PATIENT HAS A RIGHT UPPER ARM PICC LINE. LAST BOWEL MOVEMENT WAS ON THE 17.
--- NOTE | 2020-09-04 19:14 | NUR ---
ENDORSED PT TO AOC PLANS INTELLIGENCE OFFICER CHIEF NURSE, PT STABLE, NO SIGN OF DISTRESS. ALL SAFETY MEASURES IN PLACE. ENDORSED TO NURSE PT HAS POSITIVE PROTEASE IN URINE, DR. GANNON IS AWARE AND HAS NEW ORDERS FOR ANTIBIOTICS BEGINNING TONIGHT.
--- NOTE | 2020-09-04 19:18 | NUR ---
ADMINISTERED MEDICATION PER MD ORDER, PT TOLERATED MEDICATION WELL
--- NOTE | 2020-09-04 20:10 | NUR ---
SCHEDULED MEDICATION ADMINISTERED. EDUCATION PROVIDED.RIGHT UPPER PICC PATIENT, CLEAN, DRY AND INTACT. PATIENT REPORTS NO PAIN. BLANCHING NOTED ON LOWER EXTREMITY, NO PITTING EDEMA. LOWER EXTREMITY CELLULITES DRESSING CLEAN, DRY AND INTACT. PATIENT 02 SAT AT 96%. PATIENT SHOWS NO SIGNS OF ACUTE DISTRESS. CALL LIGHT WITHIN REACH. SAFETY MEASURES IN PLACE. WILL CONTINUE TO MONITOR.
--- NOTE | 2020-09-04 22:46 | NUR ---
ROUNDED ON PATIENT, PATIENT IN STABLE CONDITION, RESTING COMFORTABLY. PATIENT ON 40L HIGH FLOW. O2 SAT 96%. PATIENT SHOWS NO SIGNS OF ACUTE DISTRESS. SAFETY MEASURES IN PLACE. WILL CONTINUE TO MONITOR.
--- NOTE | 2020-09-04 22:55 | NUR ---
WENT TO PTS ROOM TO PLACE ON NOC BI-PAP, DISCUSSED PTS CONDITION WITH RN PRESENT OUTSIDE PTS ROOM, RN STATED SHE HAD BEEN SITTING OUTSIDE PTS ROOM AND WOULD CONTINUE TO BE STATIONED OUTSIDE PTS ROOM WITH VIEW OF PT AND PULSE OX MONITOR. RN STATED PT HAD BEEN SLEEPING WHILE ON THE HIGH-FLOW NASAL CANNULA AND MAINTAINED SATURATIONS OF 95% OR ABOVE. WILL NOT PLACE PT ON BI-PAP AT THIS TIME, AND RN STATED SHE WILL MAINTAIN HER PRESENCE OUTSIDE PTS ROOM, PT IS RESTING COMFORTABLY IN NO RESPIRATORY DISTRESS, WILL CONTINUE TO MONITOR.
--- NOTE | 2020-09-04 23:00 | NUR ---
DISCUSSED WITH RT THAT PATIENT IS SATING AT 96% ON HIGH FLOW 40L WHILE ASLEEP WITH NO DESATURATIONS. SITTING OUTSIDE OF PATIENTS ROOM MONITORING HER 02 SATURATIONS. DECIDED NO NEED TO PLACE PATIENT ON BIPAP MACHINE, CONTINUING WITH HIGH FLOW 40L
[2020-09-05] VITALS: BP 114/70
--- NOTE | 2020-09-05 00:16 | NUR ---
REPOSITIONED PATIENT, PATIENT TOLERATED REPOSITIONING AND KEPT 02 SATURATION ABOVE 92%. PATIENT IN NO ACUTE SIGNS OF DISTRESS WILL CONTINUE TO MONITOR. SAFETY MEASURES IN PLACE.
[2020-09-05] MEDS: Z-GUARD PASTE TP SCH ×2 (01:03→13:02)
--- NOTE | 2020-09-05 01:05 | NUR ---
PATIENT REPOSITIONED AND CLEANED. CLEANED BETWEEN THE ABDOMINAL FOLDS, AND PLACED NEW INNER DRY BETWEEN FOLDS. CATHETER CLEANING WAS COMPLETED WELL. PATIENT TOLERATED CLEANING AND REPOSITIONING. BED IN LOWEST POSITION AND SAFETY MEASURES IN PLACE. WILL CONTINUE TO MONITOR
--- NOTE | 2020-09-05 02:36 | NUR ---
ROUNDED ON PATIENT. PATIENT IS RESTING COMFORTABLY IN BED WITH NO ACUTE SIGNS OF DISTRESS. SAFETY MEASURES IN PLACE. WILL CONTINUE TO MONITOR.
--- NOTE | 2020-09-05 03:23 | NUR ---
ROUNDED ON PATIENT. PATIENT IS RESTING COMFORTABLY IN BED WITH NO SIGNS OF ACUTE DISTRESS. SAFETY MEASURES IN PLACE. CALL LIGHT WITHIN REACH WILL CONTINUE TO MONITOR.
[2020-09-05 04:00] VITALS: BP 102/66
[2020-09-05 05:22] LABS: BASOPHILS % (AUTO) 0.4 % (0.0-2.0); EOSINOPHILS # (AUTO) 0.1 K/uL (0-0.4); EOSINOPHILS % (AUTO) 1.5 % (0.0-4.0); HEMATOCRIT 27.6 % (36-48); HEMOGLOBIN 8.8 g/dL (12.0-16.0); LYMPHOCYTES # (AUTO) 0.3 K/uL (2.5-16.5); LYMPHOCYTES % (AUTO) 3.6 % (20.5-51.1); MEAN CORPUSCULAR HEMOGLOBIN 31 pg (27-31); MEAN CORPUSCULAR HGB CONC 32 g/dL (33-37); MEAN CORPUSCULAR VOLUME 96.3 fL (80-94); MONOCYTES # (AUTO) 0.4 K/uL (0.8-1.0); MONOCYTES % (AUTO) 4.2 % (1.7-9.3); NEUTROPHILS # (AUTO) 8.1 K/uL (1.8-7.7); NEUTROPHILS % (AUTO) 90.3 % (42.2-75.2); PLATELET COUNT (AUTO) 306 K/uL (140-450); RED BLOOD CELL COUNT(AUTO) 2.86 MIL/uL (4.20-5.40); RED CELL DISTRIBUTION WIDTH 18.8 % (11.6-13.7)
--- NOTE | 2020-09-05 05:41 | NUR ---
ROUNDED ON PATIENT, PATIENT IS RESTING COMFORTABLY WATHCING TV WITH NO ACUTE SIGNS OF DISTRESS. SAFETY MEASURES IN PLACE, CALL LIGHT WITHIN REACH. WILL CONTINUE TO MONITOR.
[2020-09-05 05:46] LABS: ANION GAP 6.1 (8-16); CREATININE 2.1 mg/dL (0.6-1.3); POTASSIUM 3.6 mmol/L (3.5-5.1)
--- NOTE | 2020-09-05 05:55 | NUR ---
LAB CALLED ON PT FOR A CRITICAL LAB VALUE, CO2 41.5, TRENDING UP FROM PREVIOUS CO2 DRAW ON 09/04/2020.
[2020-09-05 05:57] LABS: CARBON DIOXIDE 41.5 mmol/L (21-32)
--- NOTE | 2020-09-05 06:05 | NUR ---
DR GANNON NOTIFIED ABOUT CRITICAL LAB VALUE, CO2 41.5, TRENDING UP FROM YESTERDAYS 41.3. WAITING FOR RESPONSE.
--- NOTE | 2020-09-05 06:08 | NUR ---
DR. GANNON RESPONDED WITH NO NEW ORDERS.
[2020-09-05] MEDS: LEVOTHYROXINE 0.025 MG TAB NG SCH (06:15)
[2020-09-05] MEDS: MIDODRINE 5 MG TAB PO SCH ×3 (06:15→18:35)
--- NOTE | 2020-09-05 07:26 | NUR ---
PATIENT ENDORSED TO DAY SHIFT, ZAIN, FOR CONTINUITY OF CARE, POC DISCUSSED. PATIENT IN STABLE CONDITION
--- NOTE | 2020-09-05 07:29 | NUR ---
RECEIVED REPORT FROM NIGHT NURSE PT IS AWAKE AND WATCHING ON 40 LITERS HIGH FLOW OXYGEN VIA NC, BEDBOUND WITH RIGHT UPPER ARM PICC LINE DOUBLE LUMEN ON TKO, SKIN NON INTACT WITH SACRAL WOUND AND LE CELLULITIS, PLAN OF CARE FOR SS REQUEST [facility] EVAL. WITH SHORE CATHETER AND LAST BOWEL MOVEMENT 08/31/20. SAFETY MEASURES IN PLACE AND CALL LIGHT WITHIN REACH. WILL CONTINUE TO MONITOR.
[2020-09-05] MEDS: ALBUTEROL 0.083% 2.5 MG/3 ML NEBU INH PRN ×2 (07:46→14:33)
--- NOTE | 2020-09-05 07:46 | NUR ---
RECEIVED ON A VAPOTHERM HIGH FLOW NASAL CANNULA PLUGGED INTO RED OUTLET TOLERATING WELL WITHOUT ADVERSE REACTIONS NOTED 40 LPM FIO2 75% TEMP 36.0 LOC AWAKE AND ALERT VERBALLY RESPONSIVE TO SLIP LASTER VERBAL COMMANDS GOOD EQUAL CHEST RISE SATURATION 94% ON FIO2 OF 75% POST HHN THERAPY TITRATED FIO2 TO 70% SLIP LASTER TO MONITOR PRAMOD NOTIFIED OF FIO2 CHANGE Addendum: 09/05/20 at 13 by Ramiro Merino RT [employer] V60 BIPAP AT BEDSIDE Addendum: 09/05/20 at 0915 by Ramiro Merino RT TITRATED FIO2 TO KEEP SATURATION GREATER THAN 90%
[2020-09-05 08:00] VITALS: BP 110/65
[2020-09-05] MEDS ORDERED: ENOXAPARIN 30 MG/0.3 ML SYR SUBQ SCH (09:00)
[2020-09-05] MEDS: ASPIRIN 81 MG TAB.CHEW NG SCH (09:12)
[2020-09-05] MEDS: LACTOBACILLUS RHAMNOSUS GG 1 EACH CAP PO SCH (09:12)
[2020-09-05] MEDS: ATORVASTATIN 20 MG TAB NG SCH (09:12)
[2020-09-05] MEDS: PANTOPRAZOLE 40 MG INJ VIAL IVP SCH (09:12)
[2020-09-05] MEDS: ASCORBIC ACID 500 MG/5 ML ORASYR PO SCH (09:13)
[2020-09-05] MEDS: ACETAZOLAMIDE SOD 250 MG TAB PO SCH ×2 (09:13→20:27)
[2020-09-05] MEDS: MULTIVITAMIN/MINERALS 1 TAB PO SCH (09:13)
[2020-09-05] MEDS: FUROSEMIDE 20 MG/2 ML VIAL IVP SCH ×2 (09:14→20:22)
--- NOTE | 2020-09-05 09:25 | NUR ---
MEDICATION DUE GIVEN CHECK VITAL SIGNS BP 110/65 SD 106 PT TOLERATED WELL AND ON 35LPM HIGH FLOW OXYGEN AT 70 % SATURATION AT 97%. NO DISTRESS NOTED PT ATE 25 % OF HER FOOD. PT STABLE. WILL CONTINUE TO MONITOR.
--- NOTE | 2020-09-05 10:45 | NUR ---
MADE ROUNDS PT SLEEPING STILL ON 35LITERS HIGH FLOW OXYGEN AND 72% SATURATING AT 97%.
[2020-09-05 12:00] VITALS: BP 106/58
[2020-09-05] MEDS: THERAHONEY GEL 42.5 GM TP SCH (13:02)
[2020-09-05] MEDS: GAUZE TP SCH (13:02)
--- NOTE | 2020-09-05 13:03 | NUR ---
MEDICATION DUE CHECK VITAL SIGNS PRIOR TO MEDICATION BP 106/58 WA 97. PT IS STABLE AND TOLERATED WELL.
--- NOTE | 2020-09-05 14:33 | NUR ---
AWAKE AND ALERT VERBALLY RESPONSIVE PATIENT PRESENTING WITH INCREASED WOB RR 32 BREAT SOUNDS COARSE RALES BILATERAL HHN PRN THERAPY GIVEN AT THIS TIME POST HHN THERAPY INCREASED FIO2 TO 75% ZAIN/RN NOTIFIED OF FIO2 CHANGE
[2020-09-05 16:00] VITALS: BP 110/60
--- NOTE | 2020-09-05 16:20 | NUR ---
SATURATION 93% ON FIO2 OF 75% TITRATED FIO2 TO 73% ZAIN/RN NOTIFIED
--- NOTE | 2020-09-05 16:30 | NUR ---
MADE ROUNDS PATIENT ON 35LITERS AT 73 % SATURATING AT 90% PT IS STABLE.
--- NOTE | 2020-09-05 18:00 | NUR ---
MADE ROUND PATIENT IS RESTING STILL ON 35LITERS AND FI02 73%
--- NOTE | 2020-09-05 18:37 | NUR ---
MEDICATION DUE GIVEN PATIENT IS RESTING AND ABLE TO TOLERATE WELL.
--- NOTE | 2020-09-05 19:15 | NUR ---
PATIENT ON 38LITERS HIGH FLOW AT 78% FI02 SATURATING AT 90%.
--- NOTE | 2020-09-05 19:16 | NUR ---
ENDORSED TO NIGHT NURSE FOR CONTINUITY OF CARE PT IS STABLE.
--- NOTE | 2020-09-05 19:17 | NUR ---
RECEIVED BEDSIDE REPORT FROM DAY TARIK P[facility]TM[facility]. PT AOX2 ON HIGHFLOW, 38L FIO2 85, O2 SAT 91%. NO S/S RESPIRATORY DISTRESS. NO C/O PAIN AT THIS TIME. HAS KALPESH PICC PATENT INTACT INFUSING NS @5ML/HR. SHORE CATH IN PLACE, DRAINING YELLOW URINE. SAFETY MEASURES IN PLACE. CALL LIGHT WITHIN REACH. WILL CONTINUE TO MONITOR
[2020-09-05 20:00] VITALS: BP 111/60
--- NOTE | 2020-09-05 20:35 | NUR ---
ADMINISTERED SCHEDULED MEDICATIONS. EDUCATION PROVIDED. HIGHFLOW IN PLACE, O2 SAT 94%. NO DISTRESS NOTED. SAFETY MEASURES IN PLACE. CALL LIGHT WITHIN REACH. WILL CONTINUE TO MONITOR
--- NOTE | 2020-09-05 22:22 | NUR ---
PATIENT ASLEEP IN BED. HIGHFLOW IN PLACE, O2 SAT 93%. RESPIRATIONS EVEN UNLABORED. NO S/S RESPIRATORY DISTRESS NOTED. CALL LIGHT WITHIN REACH. WILL CONTINUE TO MONITOR
--- NOTE | 2020-09-05 23:40 | NUR ---
PATIENT ASLEEP IN BED. HIGHFLOW IN PLACE, O2 SAT 92%. RESPIRATIONS EVEN UNLABORED. NO S/S RESPIRATORY DISTRESS NOTED. CALL LIGHT WITHIN REACH. WILL CONTINUE TO MONITOR
[2020-09-06] VITALS (42 sets, daily range): BP systolic 49–170; BP diastolic 27–140
[2020-09-06] MEDS: Z-GUARD PASTE TP SCH ×2 (01:00→13:07)
--- NOTE | 2020-09-06 02:42 | NUR ---
PATIENT ASLEEP IN BED. BIPAP IN PLACE, O2 SAT 94%. NO DISTRESS NOTED. CALL LIGHT WITHIN REACH. WILL CONTINUE TO MONITOR
--- NOTE | 2020-09-06 05:01 | NUR ---
PATIENT ASLEEP IN BED. BIPAP IN PLACE, O2 SAT 92%. NO DISTRESS NOTED. CALL LIGHT WITHIN REACH. WILL CONTINUE TO MONITOR
[2020-09-06] MEDS: LEVOTHYROXINE 0.025 MG TAB NG SCH (05:37)
--- NOTE | 2020-09-06 05:40 | NUR ---
ADMINISTERED SCHEDULED MEDICATION. EDUCATION PROVIDED. TOLERATED WELL. BIPAP IN PLACE, O2 SAT 96%. NO DISTRESS NOTED. CALL LIGHT WITHIN REACH. WILL CONTINUE TO MONITOR
[2020-09-06] MEDS: MIDODRINE 5 MG TAB PO SCH ×3 (06:08→18:27)
--- NOTE | 2020-09-06 06:12 | NUR ---
ADMINISTERED SCHEDULED MEDICATION. EDUCATION PROVIDED. TOLERATED WELL. BIPAP IN PLACE, O2 SAT 95%. NO DISTRESS NOTED. CALL LIGHT WITHIN REACH. WILL CONTINUE TO MONITOR
--- NOTE | 2020-09-06 07:33 | NUR ---
ENDORSED PATIENT TO DAY RN FOR CONTINUITY OF CARE. PATIENT IS IN STABLE CONDITION
--- NOTE | 2020-09-06 07:35 | NUR ---
RECEIVED REPORT FROM NIGHT NURSE PT IS SLEEPING ON BIPAP FI02 60 FOR SLEEP APNEA AT NIGHT, BEDBOUND, WITH SHORE CATHETER, WITH RIGHT UPPER ARM PICC LINE RUNNING SODIUM CHLORIDE 0.9% AT 5MLS/HR, SKIN NON INTACT SACRAL AREA AND BOTH LE CELLULITIS, PT FOR LTAC EVAL AND CHEST XRAY FOR CHF FOLLOW UP TAKEN. STRICT I&O OUTPUT OF 500 ML. SAFETY MEASURES IN PLACE AND CALL LIGHT WITHIN REACH. WILL CONTINUE TO MONITOR.
--- NOTE | 2020-09-06 08:06 | NUR ---
PATIENT ON 35 LITERS HIGH FLOW FI02 100 % VIA NASAL CANULA SATURATING AT 97%.
[2020-09-06] MEDS: PANTOPRAZOLE 40 MG INJ VIAL IVP SCH (08:42)
[2020-09-06] MEDS: ASCORBIC ACID 500 MG/5 ML ORASYR PO SCH (08:42)
[2020-09-06] MEDS: LACTOBACILLUS RHAMNOSUS GG 1 EACH CAP PO SCH (08:43)
[2020-09-06] MEDS: ACETAZOLAMIDE SOD 250 MG TAB PO SCH (08:43)
[2020-09-06] MEDS: ASPIRIN 81 MG TAB.CHEW NG SCH (08:44)
[2020-09-06] MEDS: FUROSEMIDE 20 MG/2 ML VIAL IVP SCH (08:44)
[2020-09-06] MEDS: MULTIVITAMIN/MINERALS 1 TAB PO SCH (08:44)
[2020-09-06] MEDS: ATORVASTATIN 20 MG TAB NG SCH (08:44)
--- NOTE | 2020-09-06 08:56 | NUR ---
MEDICATION DUE GIVEN CHECK VITAL SIGNS PRIOR TO MEDICATION BP108/67 GA 106 AND PT IS 35LITERS FI02 73% SATURATING AT 90%.PT IS STABLE NO DISTRESS NOTED.
--- NOTE | 2020-09-06 09:35 | NUR ---
CALLED RT PT SATURATION LEVEL GOING DOWN TO 88% ON 35LITERS HIGH FLOW FI02 73%.
--- NOTE | 2020-09-06 09:42 | NUR ---
PETROLEUM REFINERY LABORER CALLED TO BEDSIDE FRO DESCENDING SATURATION TO 87%-88% ON FIO2 OF 73% INCREASED FIO2 TO 85% PETROLEUM REFINERY LABORER TO MONITOR
--- NOTE | 2020-09-06 09:43 | NUR ---
LOC AWAKE AND ALERT VERBALLY RESPONSIVE GOOD EQUAL CHEST RISE AIRWAY PATENT BREATH SOUND DECREASED BILATERAL NO EVIDENCE OF WHEEZE, RALES OR RHONCHI BILATERAL
--- NOTE | 2020-09-06 09:44 | NUR ---
LOC AWAKE AND ALERT VERBALLY RESPONSIVE SATURATION 89%-90% INCREASED FIO2 TO 90% DIVISION SERGEANT TO MONITOR
--- NOTE | 2020-09-06 09:45 | NUR ---
PATIENT ON 37LITERS HIGH FLOW VIA NC FI02 90% SATURATING AT 91%. PT IS SLEEPING.
--- NOTE | 2020-09-06 11:07 | NUR ---
WAD LUBRICATOR CURRENTLY AT BEDSIDE FOR PHYSICAL HYGIENE AND REPOSITION
--- NOTE | 2020-09-06 11:18 | NUR ---
AT OR ABOUT THIS TIME MANUAL MACHINIST CALLED TO BEDSIDE HIGH FLOW NASAL CANNULA ON AND FUNCTIONING WELL FIO2 90% FLOW 35 LPM TEMP 36.0 DEGREES C PATIENT PRESENTING WITH DESCENDING HR NOTED AT MID 60'S AND SATURATION NOTED IN 40'S VIA PERCENT LOC NON RESPONSIVE TO MANUAL MACHINIST VERBAL COMMANDS AND STRONG STERNAL RUB SHALLOW CHEST RISE BREATH SOUNDS DIMINISHED BILATERAL WITH NO EVIDENCE OF WHEEZE, RALES OR RHONCHI BILATERAL PLACED ON BIPAP TO MASK AT THIS TIME INCREASED FIO2 TO 100%
--- NOTE | 2020-09-06 11:20 | NUR ---
CALLED RAPID RESPONSE PATIENT OXYGEN SATURATION LOW AND HR AT 32. VITAL SIGNS CHECK BP 119/77 [place] 74 TEMP 99.3 AND BLOOD SUGAR 156 MG/DL
--- NOTE | 2020-09-06 11:21 | NUR ---
ON OR ABOUT THIS TIME AFTER TWO MINUTES ON BIPAP TO MASK PATIENT PRESENTING WITH INCREASED LOC AROUSABLE BRIEFLY OPENING EYES SATURATION ASCENDING NOW AT 89% ON FIO2 OF 100%
--- NOTE | 2020-09-06 11:25 | NUR ---
ON OR ABOUT THIS TIME DR. BATISTA SAID ERMEmily AT BEDSIDE GATHERING PERTINENT INFORMATION ASSESSING PATIENT REVIEWING PREVIOUS ABG RESULTS FOREMENTIONED JAMILA DECISION TO INTUBATE PATIENT
--- NOTE | 2020-09-06 11:30 | NUR ---
PATIENT WAS INTUBATED PER DOCTOR ORDER DR BOWER AWARE AND FAMILY AWARE LEFT MESSAGE.
--- NOTE | 2020-09-06 11:31 | NUR ---
LEFT MESSAGE TO KHRIS (MOTHER) FOR PLAN OF CARE. DR. SLOAN AWARE.
--- NOTE | 2020-09-06 11:32 | NUR ---
ON OR ABOUT THIS TIME PATIENT INTUBATED BY DR. JOSE BATISTA USING GLIDESCOPE VOCAL CHORDS WERE VISUALIZED ENDOTRACHEAL TUBE #7.5 INSERTED SUCCESSFULLY CUFF INFLATED WITH 8ml AIR VIA 10ml SYRINGE SECURED AT 24cm TEETH/GUM LINE WITH ANCHOR FAST CONFIRMATION VIA CO2 DETECTOR (YELLOW) GOOD EQUAL CHEST RISE VIA AMBU BAG TO ENDOTRACHEAL TUBE AUSCULTATION TO BILATERAL LUNG HARPER BY JAMILA MONTERO XRAY TO FOLLOW
--- NOTE | 2020-09-06 11:46 | NUR ---
GAVE REPORT TO ICU NURSE DAVEY FOR UPDATES. PT TRANSFERRED TO ICU BED 1.
[2020-09-06] MEDS ORDERED: fentaNYL citrate 1 MG in NACL 0.9% 80 ML IV PRN (11:55)
[2020-09-06] MEDS ORDERED: NACL 0.9% 1,000 ML IV ONE (12:00)
[2020-09-06] MEDS: DOPamine 400 MG/D5W PREMIX 250 ML IV PRN ×2 (12:00→22:20)
--- NOTE | 2020-09-06 12:00 | NUR ---
PRIOR TO PATIENTS ARRIVAL, RECEIVED REPORT FROM [facility] NURSE ZAIN FOR REPORT. PT FLACC 0. ETT TP VENT. SR ON MONITOR. RESPIRATIONS EVEN AND UNLABORED WITH NO SOB OR RESPIRATORY DISTRESS. O2 AT 88% WITH 60% FIO2. TEMP 96.1 MURTAZA HUGGER APPLIED. PT HAS KALPESH PICC LINE DOUBLE LUMEN THAT IS CLEAN, DRY, AND INTACT. BP 153/140, HR 94. PT HAS SHORE DRAINING VIA GRAVITY. PT HAS WOUNDS ON SACRUM PRESSURE ULCER, BLE CELLULITIS, AND DERMATITIS UNDER FOLDS. MD AND FAMILY AWARE OF TRANSFER. SAFETY MEASURES IN PLACE. WILL CONTINUE TO MONITOR
--- NOTE | 2020-09-06 12:02 | NUR ---
TRANSFERRED PATIENT TO ICU-1 AMBU BAG TO ENDOTRACHEAL TUBE BAG DEPRESSION EVERY SIX SECONDS INFUSED TO AMBU BAG SUPPLEMENTAL OXYGEN VIA E-TANK AT 15 LPM ADEQUATE PSI LEVEL FOR TRANSPORT SATURATION 93%-94%
--- NOTE | 2020-09-06 12:07 | NUR ---
PLACED ON A UnypeSCAPE R860 VENTILATOR PLUGGED INTO RED OUTLET TOLERATING WELL WITHOUT ADVERSE REACTIONS NOTED TO A ENDOTRACHEAL TUBE #7.5 SECURED AT 24cm TEETH/GUM LINE WITH AN ANCHOR FAST CUFF PRESSURE CHECKED NOTED AMBU BAG AT BEDSIDE RESTING COMFORTABLY GOOD EQUAL CHEST RISE
--- NOTE | 2020-09-06 12:15 | NUR ---
PATIENT BLOOD PRESSURE IS 49/27. PAGED DR. RIZZO FOR ORDERS. ORDERS RECEIVED. WILL CONTINUE TO MONITOR
[2020-09-06] MEDS: GAUZE TP SCH (13:06)
[2020-09-06] MEDS: THERAHONEY GEL 42.5 GM TP SCH (13:07)
[2020-09-06] MEDS: fentaNYL citrate - 50mL vial 2.5 MG in NACL 0.9% 200 ML IV PRN (13:57)
--- NOTE | 2020-09-06 14:04 | NUR ---
PT RESTING IN BED. FLACC 0. NO SIGNS OF RESPIRATORY DISTRESS. WILL CONTINUE TO MONITOR
[2020-09-06] MEDS ORDERED: NOREPINEPHRINE 16 MG in DEXTROSE 5% 250 ML IV PRN (15:00)
--- NOTE | 2020-09-06 16:10 | NUR ---
TURNED AND REPOSITIONED PATIENT COMFORTABLY. NO SIGNS OF DISTRESS. SAFETY MEASURES IN PLACE. WILL CONTINUE TO MONITOR
--- NOTE | 2020-09-06 17:45 | NUR ---
PT RESTING IN BED. NO SIGNS OF DISTRESS. WILL CONTINUE TO MONITOR
--- NOTE | 2020-09-06 19:05 | NUR ---
ENDORSED TO NIGHTSHIFT FOR CONTINUITY OF CARE
--- NOTE | 2020-09-06 19:30 | NUR ---
RECEIVED CARE AND REPORT FROM DAYSHIFT RN. PATIENT FOUND RESTING WITH HOB 30 DEGREES, RASS -3, AND ON VENT SETTINGS OF AC/VC WITH FIO2 AT 60%, VT 450, RR16, AND PEEP OF 5. AIRWAY, OPEN, CLEAR, PATENT AND MAINTAINABLE, TOLERATING VENT SETTINGS WELL, OXYGEN SATURATION AT 100%. PATIENT HAS AN OGT IN PLACE, PATENT, FLUSHED AUSCULTATED AND SECURED, NO FEEDING RUNNING THROUGH AT THIS TIME, AWAITING NUTRITION CONSULT. PATIENT ON CONTINUOUS CARDIAC MONITORING AT BEDSIDE, HR 97, NSR, NO SIGNS OF DISTRESS OBSERVED WHILE AT BEDSIDE. PATIENT HAS IV SITES OF RIGHT UPPER ARM PICC LINE, DRESSING DRY, INTACT AND SITE FLUSHES WELL. PATIENT RUNNING DRIPS OF DOPAMINE AT 4 MCG/KG/MIN AND FENTANYL AT 0.5 MCG/KG/HR. PATIENT DRY WEIGHT IS APPROXIMATELY 144 KG. PATIENT HAS A SHORE CATHETER INSERTED, PATENT, SECURED AND DRAINING WELL. PATIENT CURRENTLY BEING OFFLOADED FROM PRESSURE POINTS WITH USE OF PILLOWS AND FREQUENT REPOSITIONING PROVIDED. PROMOTING A RESTFUL ENVIRONMENT FOR THE PATIENT WITH DECREASED STIMULI IN THE ROOM AND PLACED IN A POSITION OF COMFORT, HEEL PROTECTORS APPLIED. PATIENT BED LOCKED AND LOWERED INTO A POSITION OF SAFETY. WILL CONTINUE TO CLOSELY MONITOR AND FREQUENTLY ROUND THROUGHOUT THE SHIFT.
--- NOTE | 2020-09-06 19:32 | NUR ---
SKINS NON INTACT, BILATERAL LEG CELLULITIS, PITTING EDEMA PRESENT +2, AND SACRAL PRESSURE WOUND NOTED. DRESSINGS APPLIED AND WOUND THERAPIES IN PLACE. WILL CONTINUE TO CLOSELY MONITOR AND FREQUENTLY ROUND.
--- NOTE | 2020-09-06 19:52 | NUR ---
PT RECEIVED ON AC/VC 450 +5, f16 60% W/ 7.5 ETT SECURED @ 24CM. VENT PLUGGED INTO RED OUTLET W/ ALARMS ON & AUDIBLE + AMBU AT BEDSIDE WILL CONTINUE TO MONITOR
--- NOTE | 2020-09-06 20:02 | NUR ---
VAP ORAL CARE, ET/ORAL SUCTIONING, SAFETY CHECKS, HYGIENE AND SAFETY CHECKS PROVIDED. NO SIGNS OF DISTRESS NOTED WHILE AT BEDSIDE, HR 93 OXYGEN SATURATION 100%. AIRWAY REMAINS PATENT AND CLEAR, MODERATE CLEAR SECRETIONS PRESENT. TOLERATING THERAPIES WELL. WILL CONTINUE TO CLOSELY MONITOR AND FREQUENTLY ROUND.
--- NOTE | 2020-09-06 20:25 | NUR ---
SCHEDULED MEDICATIONS GIVEN ORDERED BY MD, WILL CONTINUE TO REASSESS OFTEN, CLOSELY MONITOR AND FREQUENTLY ROUND.
--- NOTE | 2020-09-06 22:13 | NUR ---
PATIENT RESTING IN A POSITION OF COMFORT, ETT TO VENT, RASS -3, NO SIGNS OF DISTRESS NOTED WHILE AT BEDSIDE. TOLERATING VENT SETTINGS WELL, WILL CONTINUE TO CLOSELY MONITOR AND FREQUENTLY ROUND.
[2020-09-07] VITALS (88 sets, daily range): BP systolic 65–172; BP diastolic 34–98
[2020-09-07] MEDS: Z-GUARD PASTE TP SCH ×2 (00:10→13:31)
--- NOTE | 2020-09-07 00:10 | NUR ---
VAP ORAL CARE, ET/ORAL SUCTIONING, HYGIENE, SAFETY CHECKS AND REPOSITIONING PROVIDED. PATIENT RESTING, RASS -3, ETT TO VENT, TOLERATING SETTINGS AND THERAPIES WELL. NO SIGNS OF DISTRESS OBSERVED WHILE AT BEDSIDE. WILL CONTINUE TO CLOSELY MONITOR AND FREQUENTLY ROUND.
--- NOTE | 2020-09-07 00:51 | NUR ---
FIO2 TITRATED TO 54% PT TOLERATING WELL APPROX 10 MIN POST TITRATION SPO2 REMAINS 100% WILL CONTINUE TO TITRATE AND MONITOR
--- NOTE | 2020-09-07 00:55 | NUR ---
RT TITRATED FIO2 DOWN TO 54%, OXYGEN SATURATION 100%, HR 92. CONTINUES TO TOLERATE VENT SETTINGS AND THERAPIES WELL. NO OBVIOUS SIGNS OF DISTRESS OBSERVED WHILE AT BEDSIDE. WILL CONTINUE TO CLOSELY MONITOR AND FREQUENTLY ROUND.
--- NOTE | 2020-09-07 02:05 | NUR ---
PATIENT CONTINUES TO REST COMFORTABLY IN A POSITION OF COMFORT, HOB 30 DEGREES, RASS -3, AIRWAY PATENT, CLEAR AND MAINTAINABLE. TOLERATING VENT SETTINGS WELL, NO SIGNS OF DISTRESS OBSERVED WHILE AT BEDSIDE. REPOSITIONED PATIENT, WOUND CARE PROVIDED, Z GUARD PASTE APPLIED TO LEFT AND RIGHT ISCHIUM AND ALFA WOUND SKIN ORDERED. WILL CONTINUE TO REASSESS OFTEN, CLOSELY MONITOR AND FREQUENTLY ROUND.
[2020-09-07] MEDS: PROPOFOL 1000 MG/100 ML PREMIX 100 ML IV PRN ×3 (02:35→19:07)
--- NOTE | 2020-09-07 03:13 | NUR ---
FIO2 TITRATED TO 44% AND PT APPEARS TO BE TOLERATING WELL SPO2 99% 10 MIN POST TITRATION
--- NOTE | 2020-09-07 04:22 | NUR ---
MORNING CARE, ALFA CARE, VAP ORAL CARE, ET/ORAL SUCTIONING, LINEN CHANGE, GOWN CHANGE, REPOSITIONING, SAFETY CHECKS, HYGIENE, AND WOUND CARE PROVIDED. PATIENT RESTING IN A POSITION OF COMFORT, HOB 30 DEGREES, NO OBVIOUS SIGNS OF DISTRESS NOTED WHILE AT THE BEDSIDE. TOLERATING CURRENT THERAPIES WELL GRE INSTRUCTOR SHOWS HR 94 AND OXYGEN SATURATION AT 97%. WILL CONTINUE TO REASSESS OFTEN, CLOSELY MONITOR AND FREQUENTLY ROUND.
--- NOTE | 2020-09-07 05:23 | NUR ---
PT REMAINS ON SETTINGS RECEIVED ON AC/VC 450 +5, f16. THE FIO2 WAS TITRATED TO 44%. 7.5 ETT SECURED @ 24CM. VENT REMAINS PLUGGED INTO RED OUTLET W/ ALARMS ON & AUDIBLE. THE AMBU IS AT BEDSIDE WILL CONTINUE TO MONITOR.
--- NOTE | 2020-09-07 05:36 | NUR ---
FIO2 TITRATED TO 38% AND APPEARS TO BE TOLERATING WELL W/ SPO2 96% 10 MIN POST TITRATION WILL CONTINUE TO MONITOR
[2020-09-07] MEDS: LEVOTHYROXINE 0.025 MG TAB NG SCH (06:03)
[2020-09-07] MEDS: MIDODRINE 5 MG TAB PO SCH ×4 (06:03→23:41)
--- NOTE | 2020-09-07 06:06 | NUR ---
PATIENT CONTINUES TO REST IN A POSITION OF COMFORT, RASS -3, ETT TO VENT, AND TOLERATING VENT SETTINGS AND THERAPIES WELL. NO SIGNS OF DISTRESS WHILE AT BEDSIDE. WILL CONTINUE TO CLOSELY MONITOR AND FREQUENTLY ROUND.
[2020-09-07 06:16] LABS: BASOPHILS # (AUTO) 0.1 K/uL (0.00-0.22); EOSINOPHILS # (AUTO) 0.4 K/uL (0-0.4); EOSINOPHILS % (AUTO) 4.9 % (0.0-4.0); HEMATOCRIT 26.5 % (36-48); HEMOGLOBIN 8.5 g/dL (12.0-16.0); LYMPHOCYTES # (AUTO) 0.5 K/uL (2.5-16.5); LYMPHOCYTES % (AUTO) 6.1 % (20.5-51.1); MEAN CORPUSCULAR HEMOGLOBIN 31 pg (27-31); MEAN CORPUSCULAR HGB CONC 32 g/dL (33-37); MEAN CORPUSCULAR VOLUME 94.8 fL (80-94); MONOCYTES # (AUTO) 0.4 K/uL (0.8-1.0); MONOCYTES % (AUTO) 4.7 % (1.7-9.3); NEUTROPHILS # (AUTO) 6.6 K/uL (1.8-7.7); NEUTROPHILS % (AUTO) 83.3 % (42.2-75.2); PLATELET COUNT (AUTO) 312 K/uL (140-450); RED CELL DISTRIBUTION WIDTH 18.5 % (11.6-13.7); WHITE BLOOD COUNT (AUTO) 7.9 K/uL (4.8-10.8)
[2020-09-07 06:24] LABS: ANION GAP 5.5 (8-16); CARBON DIOXIDE 38.9 mmol/L (21-32); POTASSIUM 3.4 mmol/L (3.5-5.1)
[2020-09-07 06:29] LABS: CREATININE 2.5 mg/dL (0.6-1.3)
[2020-09-07 06:34] LABS: MAGNESIUM 1.8 mg/dL (1.8-2.4); PHOSPHORUS 2.9 mg/dL (2.5-4.9)
--- NOTE | 2020-09-07 07:15 | NUR ---
CALLED FOR DR. SNOW (FOR DR. ROGERS) TO REPORT CRITICAL LAB VALUES. AWAITING CALLBACK.
--- NOTE | 2020-09-07 07:25 | NUR ---
REPORT AND CARE ENDORSED TO PARTHA MONTANEZ.
--- NOTE | 2020-09-07 07:30 | NUR ---
RECEIVED REPORT FROM CENTRIFUGAL OPERATOR NURSE. ETT TO VENT AC/VC FIO2 38% TV 450 R 16 PEEP 5. DRY WEIGHT 149KG. SEDATED TO RASS-3. RESPIRATIONS EVEN AND UNLABORED, NO SOB. KALPESH PICC LINE RUNNING DOPAMINE AT 4MCG/KG/HR, PROPOFOL AT 10MCG/KG/MIN, FENTANYL AT 0.5MCG/KG/HR. SKIN NOT INTACT, WITH R BUTTOCK UNSTAGEABLE, MULTIPLE BLISTER ON BLE. SHORE DRAINING VIA GRAVITY. SAFETY MEASURES IN PLACE. WILL CONTINUE TO MONITOR
--- NOTE | 2020-09-07 07:33 | NUR ---
RECEIVED CALL BACK FROM DR SCHNEIDER, CRITICAL LAB MADE AWARE. DR SCHNEIDER WAS AWARE AND NO ORDER RECEIVED AT THIS TIME.
[2020-09-07] MEDS: ALBUTEROL 0.083% 2.5 MG/3 ML NEBU INH PRN ×3 (07:37→18:59)
--- NOTE | 2020-09-07 07:38 | NUR ---
RECEIVED ON A ROSTR R860 VENTILATOR PLUGGED INTO RED OUTLET TOLERATING WELL WITHOUT ADVERSE REACTIONS NOTED TO AN ENDOTRACHEAL TUBE #7.5 SECURED AT 24cm TEETH/GUM LINE WITH AN ANCHOR FAST CUFF PRESSURE CHECKED NOTED AMBU BAG AT BEDSIDE LOC SEDATED RESTING COMFORTABLY AROUSABLE GOOD EQUAL CHEST RISE ENDOTRACHEAL SUCTION FOR MODERATE THICK YELLOW WITH RED STREAKED SECRETIONS AIRWAY PATENT Addendum: 09/07/20 at 0842 by Ramiro Merino RT SATURATION 99% ON FIO2 OF 38% PEEP 5cmH2O POST HHN THERAPY TITRATED FIO2 TO 35% KERON/RN NOTIFIED
[2020-09-07] MEDS: LACTOBACILLUS RHAMNOSUS GG 1 EACH CAP PO SCH (08:38)
[2020-09-07] MEDS: ASCORBIC ACID 500 MG/5 ML ORASYR PO SCH (08:38)
[2020-09-07] MEDS: MULTIVITAMIN/MINERALS 1 TAB PO SCH (08:38)
[2020-09-07] MEDS: ASPIRIN 81 MG TAB.CHEW NG SCH (08:38)
[2020-09-07] MEDS: ATORVASTATIN 20 MG TAB NG SCH (08:38)
[2020-09-07] MEDS: PANTOPRAZOLE 40 MG INJ VIAL IVP SCH (08:38)
--- NOTE | 2020-09-07 08:50 | NUR ---
DUE MORNING MEDS GIVEN VIA GT. TOLERATED WELL. ORAL CARE, SHORE CARE DONE. REPOSITIONED PT
--- NOTE | 2020-09-07 09:32 | NUR ---
SEEN BY DR RIZZO
--- NOTE | 2020-09-07 09:52 | NUR ---
SEEN BY DR TORREZ
--- NOTE | 2020-09-07 10:22 | NUR ---
NO APPARENT DISTRESS NOTED GOOD CHEST RISE AIRWAY PATENT
--- NOTE | 2020-09-07 10:24 | NUR ---
ATTEMPTED TO SEE PATIENT FOR PHYSICAL THERAPY TREATMENT HOWEVER PATIENT HAD CHANGE IN CONDITION AND IS NOW ICU STATUS. WILL NEED NEW ORDER FOR PHYSICAL THERAPY SERVICES WHEN APPROPRIATE; CHARGE NURSE AWARE.
[2020-09-07] MEDS ORDERED: POTASSIUM CHLORIDE 20% 40 MEQ/15 ML UDC GT SCH (10:30)
--- NOTE | 2020-09-07 10:30 | NUR ---
POTASSIUM ELIXIR 40MEQ GIVEN ORDERED FOR K+ 3.4
[2020-09-07] MEDS: DOPamine 400 MG/D5W PREMIX 250 ML IV PRN (10:52)
--- NOTE | 2020-09-07 11:10 | NUR ---
SEEN BY DR GUZMAN
[2020-09-07] MEDS ORDERED: DEXTROSE 5% 1,000 ML IV SCH (11:35)
--- NOTE | 2020-09-07 11:58 | NUR ---
STABLE SEDATED RESTING WELL EQUAL CHEST RISE ENDOTRACHEAL SUCTION FOR SMALL KAMERON THICK YELLOW WITH BLOOD TINGE SECRETIONS AIRWAY PATENT SATURATION 100% ON FIO2 OF 35% PEEP 5cmH20 TITRATED FIO2 TO 30% KERON/RN NOTIFIED
[2020-09-07] MEDS: THERAHONEY GEL 42.5 GM TP SCH (13:31)
[2020-09-07] MEDS: GAUZE TP SCH (13:31)
--- NOTE | 2020-09-07 13:38 | NUR ---
SEDATED EQUAL CHEST RISE ENDOTRACHEAL SUCTION FOR SMALL THIN YELLOW WITH RED TINGE SECRETIONS AIRWAY PATENT Addendum: 09/07/20 at 1359 by Ramiro Merino RT SATURATION 98% ON FIO2 OF 30% PEEP 5cmH20 POST HHN THERAPY TITRATED FIO2 TO 28% KERON/TARIK NOTIFIED
--- NOTE | 2020-09-07 13:46 | NUR ---
RASS-1, COOPERATIVE WHEN AWAKE, INSTRUCTED NOT TO PULL LINES, FLACC 0, RESPIRATIONS ARE EVEN AND UNLABORED
--- NOTE | 2020-09-07 14:15 | NUR ---
WOUND CARE DONE. TURNED AND REPOSITIONED PT. TOLERATED PROCEDURE WELL
--- NOTE | 2020-09-07 14:21 | NUR ---
WOUND CARE RE-EVALUATION NOTE: PT. ELOINA AND AT ICU WITH INTUBATION, NO CHANGE OF SKIN CONDITION, AREAS RESPONDING TO CURRENT TREATMENT. UNABLE TO OBTAINED WEEKLY WOUND PHOTO, PT. EASILY DE SAT TO 80'S WITH TURNING. -BLE SEVERE XEROSIS SKIN WITH NO OPEN ACTIVE WOUND, MULTIPLE BLISTER LIKE BUMPS, ORANGE SKIN, MULTIPLE DRY SCABS. XEROSIS IMPROVING, WILL CONTINUE XEROFORM DRESSING -PRESSURE INJURIES UN-STAGEABLE TO RIGHT ISCHIUM 5X5CM SUPERFICIAL DEPTH WITH WOUND BED 90% GRANULATION TISSUE AND 10 % SCATTER BROWN TISSUE, NO ODOR, WOUND EDGE FLAT, ALFA WOUND SKIN MOIST SKIN. -MOISTURE ASSOCIATE DERMATITIS TO LEFT ISCHIUM SKIN MOIST PEELING, NO OPEN WOUND.
--- NOTE | 2020-09-07 15:47 | NUR ---
STABLE SEDATED NO EVIDENCE OF RESPIRATORY DISTRESS NOTED GOOD CHEST RISE NO SUCTIONING AT THIS TIME SENIOR IT BUSINESS ANALYST TO MONITOR
--- NOTE | 2020-09-07 17:15 | NUR ---
BP 65/38, TITRATED DOPAMINE UP TO 4MCG. PT ASLEEP BUT EASILY AROUSED BY SHAKING, FLACC 0, NO APPARENT DISTRESS
--- NOTE | 2020-09-07 17:59 | NUR ---
SEDATED STABLE RESTING WELL WITH EQUAL CHEST RISE ENDOTRACHEAL SUCTION FOR MODERATE THIN TO SEMI THICK YELLOW SECRETIONS AIRWAY PATENT
--- NOTE | 2020-09-07 18:36 | NUR ---
PT RESTING IN BED, FLACC 0, NO SIGNS OF RESPIRATORY DISTRESS.
--- NOTE | 2020-09-07 19:30 | NUR ---
RECEIVED REPORT FROM DAY SHIFT RN; PT SEDATED ON PROPOFOL DRIP RASS-3, FLACC 0. OPENS EYES. SINUS RHYTHM 70S ON DOPAMINE DRIP, GENERALIZED EDEMA NOTED, +1 THREADY PULSES TO BILATERAL UPPER AND LOWER EXTREMITIES. ETT TO VENT ON 28% FIO2 AC/VC TV [address] <30 ML RESIDUALS ON VITAL AF @ 50 ML/HR 200 MLQ4H H2O FLUSH. SHORE CATH IN PLACE, PATENT, DRAINING TO GRAVITY. R UPPER ARM PICC IN PLACE D5W @ 80 ML/HR X1 BAG PER NEPHROLOGY MD. SKIN NON INTACT WITH MULTIPLE WOUNDS. PT ON SPECIALTY BED, LOCKED IN LOWEST POSITION. HOB>30 DEGREES. WILL CONTINUE TO OBSERVE. Addendum: 09/07/20 at 2124 by Israel Cardenas RN PT HAS EYES CLOSED; AROUSABLE; RASS-3. FLACC 0 .VAP ORAL CARE DONE. PT TURNED AND REPOSITIONED. WILL CONTINUE TO OBSERVE
--- NOTE | 2020-09-07 21:24 | NUR ---
PT HAS EYES CLOSED; AROUSABLE; RASS-3. FLACC 0 .VAP ORAL CARE DONE. PT TURNED AND REPOSITIONED. WILL CONTINUE TO OBSERVE
[2020-09-07] MEDS: fentaNYL citrate - 50mL vial 2.5 MG in NACL 0.9% 200 ML IV PRN (22:59)
[2020-09-08] VITALS (42 sets, daily range): BP systolic 92–147; BP diastolic 52–98
--- NOTE | 2020-09-08 00:45 | NUR ---
FLACC 0, PT TURNED AND REPOSITIONED, NO ACUTE DISTRESS NOTED. WILL CONTINUE TO OBSERVE.
[2020-09-08] MEDS: Z-GUARD PASTE TP SCH ×2 (01:00→13:45)
[2020-09-08] MEDS: DOPamine 400 MG/D5W PREMIX 250 ML IV PRN ×2 (02:08→18:31)
[2020-09-08] MEDS: PROPOFOL 1000 MG/100 ML PREMIX 100 ML IV PRN ×2 (02:56→10:59)
--- NOTE | 2020-09-08 03:40 | NUR ---
AM CARE DONE; PT TURNED AND REPOSITIIONED LINEN CHANGED. WILL CONTINUE TO MONITOR.
[2020-09-08] MEDS: MIDODRINE 5 MG TAB PO SCH ×4 (05:49→23:25)
[2020-09-08] MEDS: LEVOTHYROXINE 0.025 MG TAB NG SCH (06:01)
[2020-09-08 06:07] LABS: BASOPHILS # (AUTO) 0.1 K/uL (0.00-0.22); BASOPHILS % (AUTO) 0.9 % (0.0-2.0); EOSINOPHILS # (AUTO) 0.5 K/uL (0-0.4); EOSINOPHILS % (AUTO) 7.5 % (0.0-4.0); HEMATOCRIT 26.6 % (36-48); HEMOGLOBIN 8.7 g/dL (12.0-16.0); LYMPHOCYTES # (AUTO) 0.5 K/uL (2.5-16.5); LYMPHOCYTES % (AUTO) 7.6 % (20.5-51.1); MEAN CORPUSCULAR HEMOGLOBIN 30 pg (27-31); MEAN CORPUSCULAR HGB CONC 33 g/dL (33-37); MEAN CORPUSCULAR VOLUME 92.6 fL (80-94); MONOCYTES # (AUTO) 0.4 K/uL (0.8-1.0); NEUTROPHILS # (AUTO) 5.5 K/uL (1.8-7.7); PLATELET COUNT (AUTO) 316 K/uL (140-450); RED BLOOD CELL COUNT(AUTO) 2.87 MIL/uL (4.20-5.40); RED CELL DISTRIBUTION WIDTH 18.5 % (11.6-13.7); WHITE BLOOD COUNT (AUTO) 7.1 K/uL (4.8-10.8)
--- NOTE | 2020-09-08 06:08 | NUR ---
RASS-3, FLACC 0, NO S/S OF DISTRESS NOTED WILL CONTINUE TO OBSERVE
[2020-09-08 06:17] LABS: ALBUMIN 2.3 g/dL (3.4-5.0); ANION GAP 8.2 (8-16); CARBON DIOXIDE 36.2 mmol/L (21-32); CREATININE 2.5 mg/dL (0.6-1.3); POTASSIUM 3.4 mmol/L (3.5-5.1); TOTAL BILIRUBIN 0.5 mg/dL (0.0-1.0)
--- NOTE | 2020-09-08 07:07 | NUR ---
RECEIVED INTUBATED PT WITH A 7.5 ETT SECURED @25TEETH/GUM ON VENT. PT NOT IN ANY DISTRESS AT THIS TIME. PT SUCTIONED OBTAINED SMALL AMOUNT OF BLOOD TINGED SECRETIONS, AIRWAY IS PATENT AND ETT IS SECURE WITH ANCHOR FAST DEVICE. VENT IS PLUGGED INTO A RED OUTLET WITH ALARMS ON AND FUNCTIONING. WILL CONTINUE TO MONITOR.
--- NOTE | 2020-09-08 07:20 | NUR ---
HANDOFF RECEIVED FROM TRANSITION LEAD RN. PT IS ON SEDATION RASS -3. PT IS ETT TO VENT ACVC FIO2 24%, VT 450, PEEP 5, R 16. PT IS SR ON THE MONITOR AT THIS TIME. PT HAS KALPESH PICC LINE WITH DOPAMINE RUNNING AT 3 MCG/KG/MIN, PROPOFOL AT 15 MCG/KG/MIN, AND FENTANYL AT 0.5 MCG/KG/HR. PT HAS OG TUBE WITH VITAL RUNNING AT 50 ML/HR AND FWF 200 ML/HR Q 4HR. PT HAS SHORE IN PLACE DRAINING TO GRAVITY. HOB IS 30 DEG WITH BED IN LOW, LOCKED POSITION. WILL CONTINUE TO MONITOR.
--- NOTE | 2020-09-08 07:26 | NUR ---
REPORT GIVEN TO DAY SHIFT FOR CONTINUITY OF CARE.
[2020-09-08] MEDS: LACTOBACILLUS RHAMNOSUS GG 1 EACH CAP PO SCH (08:16)
[2020-09-08] MEDS: PANTOPRAZOLE 40 MG INJ VIAL IVP SCH (08:16)
[2020-09-08] MEDS: MULTIVITAMIN/MINERALS 1 TAB PO SCH (08:17)
[2020-09-08] MEDS: ATORVASTATIN 20 MG TAB NG SCH (08:17)
[2020-09-08] MEDS: ASPIRIN 81 MG TAB.CHEW NG SCH (08:17)
[2020-09-08] MEDS: ASCORBIC ACID 500 MG/5 ML ORASYR PO SCH (08:17)
--- NOTE | 2020-09-08 08:30 | NUR ---
MEDICATIONS ADMINISTERED PER ORDER. AUSCULTATED AND CONFIRMED PLACEMENT OF OG TUBE. 5 ML RESIDUAL NOTED. PT TOLERATED WELL. CHG BATH, VAP ORAL CARE, AND SHORE CARE PROVIDED. TEMPERATURE 97.3 TEMPORALLY.
--- NOTE | 2020-09-08 09:07 | NUR ---
DR RIZZO AT BEDSIDE, REPORTED ON K=3.4, AND ATTEMPT TO WEAN OFF DOPAMINE WITHOUT SUCCESS BY SURGICAL GARMENT ASSEMBLY SUPERVISOR.
[2020-09-08] MEDS ORDERED: POTASSIUM CHLORIDE 20% 40 MEQ/15 ML UDC GT SCH (09:30)
--- NOTE | 2020-09-08 09:42 | NUR ---
PICC LINE DRESSING CHANGED USING STERILE TECHNIQUE Addendum: 09/08/20 at 0942 by Autumn Haile RN RN POTASSIUM REPLACEMENT ADMINISTERED GT PER ORDER
--- NOTE | 2020-09-08 10:12 | NUR ---
DR. TORREZ SEEING PT, AWARE OF PT'S STATUS
--- NOTE | 2020-09-08 10:39 | NUR ---
PT REPOSITIONED AND OFFLOADED USING PILLOWS FOR OPTIMAL SKIN INTEGRITY
--- NOTE | 2020-09-08 11:23 | NUR ---
DR. GUZMAN SEEING PT AT THIS TIME, AWARE OF PT STATUS
--- NOTE | 2020-09-08 11:31 | NUR ---
@1122 PT PLACED ON SBT CPAP 5 PS 10. VENT ALARMS SET ADEQUATELY. PT AWAKE IN BED BUT EXPERIENCED X2 EPISODES OF APNEA. PT ENCOURAGED TO TAKE SLOW DEEP BREATHS. PT DEMONSTRATED SIGNS OF LOW VT AND LOW Ve. NURSE MADE AWARE. WILL TRY SBT AGAIN AT A LATER TIME.
--- NOTE | 2020-09-08 11:50 | NUR ---
PT AWAKE IN BED NOT IN ANY DISTRESS. WILL CONTINUE TO MONITOR.
--- NOTE | 2020-09-08 11:52 | NUR ---
MEDICATION ADMINISTERED PER ORDER, PT TOLERATED WELL. VAP ORAL CARE PROVIDED. PT TEMPERATURE 97.3 TEMPORALLY.
[2020-09-08] MEDS: GAUZE TP SCH (12:10)
[2020-09-08] MEDS: ALBUTEROL 0.083% 2.5 MG/3 ML NEBU INH PRN (13:21)
[2020-09-08] MEDS: THERAHONEY GEL 42.5 GM TP SCH (13:44)
--- NOTE | 2020-09-08 13:51 | NUR ---
09/08/20 RD FOLLOW UP COMPLETED PLEASE REFER TO NUTRITION ASSESSMENT UNDER CARE ACTIVITY FOR ESTIMATED NUTRITIONAL NEEDS. 1. CONTINUE VITAL 1.2 AF @ 50 ML/HR -THIS WILL PROVIDE 1440 KCAL AND 90 GM OF PROTEIN. 2. CONTINUE FREE WATER FLUSH OF 200 ML Q4H 3. RECOMMEND STOOL SOFTENER 4. RD TO FOLLOW-UP 2-3 DAYS, HIGH RISK KIERA BOURNE, RD
--- NOTE | 2020-09-08 14:59 | NUR ---
NEW TUBE FEED STARTED AT THIS TIME
--- NOTE | 2020-09-08 16:13 | NUR ---
PT REPOSITIONED, CLEANED, OFFLOADED WITH PILLOWS. VAP ORAL CARE PROVIDED. TEMPERATURE 97.1 TEMPORALLY AT THIS TIME.
--- NOTE | 2020-09-08 17:26 | NUR ---
PT REMAINS ON DOCUMENTED VENT SETTINGS NO CHANGES AT THIS TIME. PT AWAKE IN BED NOT IN ANY DISTRESS. ETT IS SECURE WITH A PATENT. VENT ALARMS REMAIN ON AND FUNCTIONING.
--- NOTE | 2020-09-08 19:05 | NUR ---
HANDOFF GIVEN TO UNDERGROUND MINING SECTION FOREMAN RN FOR CONTINUITY OF CARE
--- NOTE | 2020-09-08 19:10 | NUR ---
RECIEVED BEDSIDE ENDORSEMENT FROM DAY SHIFT RN, PT LYING IN BED RESTING, ABLE TO MAKE NEEDS KNOWN BY NODDING YES AND NO, SR ON MONITOR, ETT TO VENT ACVC FIO2 24% ACVC TV450 RATE 16 PEEP 5, OGT TO FEEDING INFUSING VITAL @ 50MLS HR W/ FWF 200MLS Q4HRS, AFEBRILE, SKIN WARM DRY AND NON INTACT/SEE WOUND ASSESSMENT DOC, KALPESH PICC INFUSING DOPAMINE @ 3 MCG/KG/MIN, FC IN PLACE DRAINING VIA GRAVITY, SAFETY MEASURES IN PLACE, NO SIGNS OF ACUTE DISTRESS, WILL CONTINUE WITH CURRENT POC
--- NOTE | 2020-09-08 19:50 | NUR ---
ADMINISTERED 2000H AND 2100H MEDICAITONS PER MD ORDERS
[2020-09-08] MEDS ORDERED: CRUSHER, PILL MC ONE (23:17)
--- NOTE | 2020-09-08 23:26 | NUR ---
ADMINISTERED 0000H MEDICAITON PER MD ORDERS, ORAL CARE AND SUCTIONING GIVEN, PT SHOWING NO SIGNS OF ACUTE DISTRESS
[2020-09-09] VITALS (35 sets, daily range): BP systolic 90–147; BP diastolic 55–101
[2020-09-09] MEDS: Z-GUARD PASTE TP SCH ×2 (00:08→13:53)
--- NOTE | 2020-09-09 02:07 | NUR ---
REPOSITIOND PT, ORAL CARE AND SUCTIONING GIVEN, PT SHOWING NO SIGNS OF ACUTE DISTRESS
--- NOTE | 2020-09-09 03:46 | NUR ---
REPOSITIONED PT, MORNING CARE GIVEN, CHANGED THE LINEN, ORAL CARE AND SUCTIONING PERFORMED, NO SIGNS OF ACUTE DISTRESS
--- NOTE | 2020-09-09 05:01 | NUR ---
PT REMAINS ON VENT W/ NO CHANGES TO VENT AC/VC 450 +5 f 16 24%. VENT REMAINS PLUGGED INTO RED OUTLET W/ ALARMS ON & AUDIBLE. PT ETT REMAINS SECURED AND AMBU @ BEDSIDE.
[2020-09-09] MEDS: MIDODRINE 5 MG TAB PO SCH ×4 (05:36→23:05)
[2020-09-09] MEDS: LEVOTHYROXINE 0.025 MG TAB NG SCH (05:37)
--- NOTE | 2020-09-09 05:37 | NUR ---
ADMINISTERED 0600H AND 0630H MEDICATIONS PER MD ORDERS, ORAL CARE AND SUCITONING GIVEN, PT SHOWING NO SIGNS OF ACUTE DISTRESS
[2020-09-09 05:53] LABS: HEMATOCRIT 27.7 % (36-48); MEAN CORPUSCULAR HEMOGLOBIN 30 pg (27-31); MEAN CORPUSCULAR HGB CONC 32 g/dL (33-37); MEAN CORPUSCULAR VOLUME 92.3 fL (80-94); PLATELET COUNT (AUTO) 326 K/uL (140-450); RED CELL DISTRIBUTION WIDTH 18.4 % (11.6-13.7); WHITE BLOOD COUNT (AUTO) 5.8 K/uL (4.8-10.8)
--- NOTE | 2020-09-09 07:13 | NUR ---
ENDORSED TO DAY SHIFT RN FOR CONTINUITY OF CARE
--- NOTE | 2020-09-09 07:18 | NUR ---
RECEIVED BEDSIDE ENDORSEMENT FROM BONE PULLER RN, PT LYING IN BED RESTING, ABLE TO MAKE NEEDS KNOWN BY NODDING YES AND NO, SR ON MONITOR, ETT TO VENT ACVC FIO2 24% ACVC TV 450 RATE 16 PEEP 5, OGT TO FEEDING INFUSING VITAL @ 50MLS HR W/ FWF 200MLS Q4HRS, AFEBRILE, SKIN WARM DRY AND NON INTACT/SEE WOUND ASSESSMENT DOC, KALPESH PICC INFUSING DOPAMINE @ 3 MCG/KG/MIN. CLEAN, DRY, AND INTACT. FC IN PLACE DRAINING VIA GRAVITY, SAFETY MEASURES IN PLACE, WILL CONTINUE TO MONITOR.
[2020-09-09 07:27] LABS: EOSINOPHILS % (MANUAL) 5 % (0-4); LYMPHOCYTES % (MANUAL) 10 % (20-46); MONOCYTES % (MANUAL) 8 % (5-12)
--- NOTE | 2020-09-09 07:30 | NUR ---
RCV'D PT INTUBATED WITH 7.5 ETT AT 25 CM AT TEETH. ETT IS IN PLACE AND SECURED WITH ANCHOR-FAST.RCV'D PATIENT ON SETTINGS AC 16,450, PEEP 5 FIO2 24% FLOW 30. VENT IS CONNECTED TO RED OUTLET,ALARMS AUDIBLE, AMBU BAG AT BEDSIDE. NO SOB OR DISTRESS NOTED. PT IS AWAKE AND ALERT. SXN'S SCANT AMOUNT OT RED SECRETIONS. WILL CONTINUE TO MONITOR PATIENT.
--- NOTE | 2020-09-09 07:50 | NUR ---
CPAP TRIAL. PT IS AWAKE AND ALERT,FOLLOWS COMMANDS. PALCED PT ON CPAP 5 PS 10 FIO2 24% BUT RR IS 10 TIDAL VOLUME IN LOW 100s. PLACED PT BACK ON VENT SETTINGS AC 16,450,PEEP 10 FIO2 24%. RN AND CHARGE NURSE AWARE. WILL CONTINUE TO MONITOR PATIENT.
[2020-09-09] MEDS: PANTOPRAZOLE 40 MG INJ VIAL IVP SCH (08:17)
[2020-09-09] MEDS: ASCORBIC ACID 500 MG/5 ML ORASYR PO SCH (08:19)
[2020-09-09] MEDS: ATORVASTATIN 20 MG TAB NG SCH (08:22)
[2020-09-09] MEDS: MULTIVITAMIN/MINERALS 1 TAB PO SCH (08:23)
[2020-09-09] MEDS: ASPIRIN 81 MG TAB.CHEW NG SCH (08:23)
[2020-09-09] MEDS: LACTOBACILLUS RHAMNOSUS GG 1 EACH CAP PO SCH (08:24)
--- NOTE | 2020-09-09 08:35 | NUR ---
ADMINISTERED SCHED MED PRESCRIBED PER MD ORDER. PT TOLERATED WELL. SAFETY MEASURES IN PLACE. WILL CONTINUE TO MONITOR
--- NOTE | 2020-09-09 08:55 | NUR ---
VENT CHECK. MD RIZZO IN UNIT. MD RIZZO AWARE THAT PATIENT FAILED CPAP TRIAL. PLAN IS TO KEEP TRYING WITH PATIENT. NO SOB OR DISTRESS NOTED. WILL CONTINUE TO MONITOR.
--- NOTE | 2020-09-09 09:15 | NUR ---
DR. RIZZO HERE TO ASSESS PATIENT
--- NOTE | 2020-09-09 10:00 | NUR ---
HERE TO SEE PATIENT
[2020-09-09 11:23] LABS: ALBUMIN 2.4 g/dL (3.4-5.0); ANION GAP 10.2 (8-16); CARBON DIOXIDE 32.4 mmol/L (21-32); CREATININE 2.3 mg/dL (0.6-1.3); POTASSIUM 3.6 mmol/L (3.5-5.1); TOTAL BILIRUBIN 0.3 mg/dL (0.0-1.0)
--- NOTE | 2020-09-09 11:30 | NUR ---
PT RESTING IN BED. NO SIGNS OF DISTRESS AT THIS TIME. RESPIRATIONS EVEN AND UNLABORED WITH NO SOB OR RESPIRATORY DISTRESS. SKIN WARM AND DRY TO TOUCH. SAFETY MEASURES IN PLACE. WILL CONTINUE TO MONITOR
[2020-09-09] MEDS: DOPamine 400 MG/D5W PREMIX 250 ML IV PRN (12:17)
--- NOTE | 2020-09-09 13:00 | NUR ---
WOUND CARE ADMINISTERED PRESCRIBED PER MD ORDER. PT TOLERATED WELL. WILL CONTINUE TO MONITOR
[2020-09-09] MEDS: GAUZE TP SCH (13:52)
[2020-09-09] MEDS: THERAHONEY GEL 42.5 GM TP SCH (13:52)
--- NOTE | 2020-09-09 18:05 | NUR ---
ORAL CARE, SUCTION, AND REPOSITION PROVIDED TO PATIENT. PT ALERT AND WATCHING TV. WILL CONTINUE TO MONITOR
--- NOTE | 2020-09-09 19:10 | NUR ---
ENDORSED TO NIGHTSHIFT FOR CONTINUITY OF CARE.
--- NOTE | 2020-09-09 19:31 | NUR ---
ADMINISTERED 2000H MEDICATION PER MD ORDERS, ORAL CARE AND SUCTIONING PERFORMED, REPOSITIONED PT
--- NOTE | 2020-09-09 20:24 | NUR ---
ADMINISTERED 2100H MEDICATION PER MD ORDERS
--- NOTE | 2020-09-09 23:05 | NUR ---
ADMINISTERED 0000H MEDICATION PER MD ORDERS, ORAL CARE AND SUCTIONING GIVEN, PT SHOWING NO SIGNS OF ACUTE DISTRESS
[2020-09-10] VITALS (35 sets, daily range): BP systolic 88–164; BP diastolic 54–107
[2020-09-10] MEDS: Z-GUARD PASTE TP SCH ×2 (00:12→12:29)
--- NOTE | 2020-09-10 01:09 | NUR ---
ORAL CARE AND SUCTIONING GIVEN, PT SHOWING NO SIGNS OF ACUTE DISTRESS
[2020-09-10] MEDS: DOPamine 400 MG/D5W PREMIX 250 ML IV PRN ×2 (02:56→19:34)
--- NOTE | 2020-09-10 02:57 | NUR ---
HUNG NEW BAG OF DOPAMINE @ 3MCG/KG/MIN
--- NOTE | 2020-09-10 04:35 | NUR ---
MORNING CARE GIVEN, CHANGED THE LINEN, REPOSITIONED PT, ORAL CARE AND SUCTIONING PERFORMED, PT SHOWING NO SIGNS OF ACUTE DISTRESS
[2020-09-10] MEDS: MIDODRINE 5 MG TAB PO SCH ×4 (05:43→23:08)
[2020-09-10] MEDS: LEVOTHYROXINE 0.025 MG TAB NG SCH (05:43)
--- NOTE | 2020-09-10 05:44 | NUR ---
ADMINISTERED 0600H AND 0630H MEDICATIONS PER MD ORDERS
[2020-09-10 06:14] LABS: BASOPHILS # (AUTO) 0.1 K/uL (0.00-0.22); BASOPHILS % (AUTO) 0.8 % (0.0-2.0); EOSINOPHILS # (AUTO) 0.4 K/uL (0-0.4); EOSINOPHILS % (AUTO) 6.6 % (0.0-4.0); HEMATOCRIT 29.2 % (36-48); HEMOGLOBIN 9.6 g/dL (12.0-16.0); LYMPHOCYTES # (AUTO) 0.8 K/uL (2.5-16.5); LYMPHOCYTES % (AUTO) 13.5 % (20.5-51.1); MEAN CORPUSCULAR HEMOGLOBIN 30 pg (27-31); MEAN CORPUSCULAR HGB CONC 33 g/dL (33-37); MEAN CORPUSCULAR VOLUME 91.6 fL (80-94); MONOCYTES # (AUTO) 0.4 K/uL (0.8-1.0); MONOCYTES % (AUTO) 6.6 % (1.7-9.3); NEUTROPHILS # (AUTO) 4.5 K/uL (1.8-7.7); NEUTROPHILS % (AUTO) 72.5 % (42.2-75.2); PLATELET COUNT (AUTO) 341 K/uL (140-450); RED BLOOD CELL COUNT(AUTO) 3.19 MIL/uL (4.20-5.40); RED CELL DISTRIBUTION WIDTH 18.2 % (11.6-13.7); WHITE BLOOD COUNT (AUTO) 6.3 K/uL (4.8-10.8)
--- NOTE | 2020-09-10 07:00 | NUR ---
PT RECEIVED ON AC VC 16, VT 450, FIO2 24%, PEEP 5, SPO2-97%, HR 94, RATE 16. PT appears to be stable no respiratory distress noted at this time.
[2020-09-10 07:05] LABS: ALBUMIN 2.3 g/dL (3.4-5.0); ANION GAP 10.7 (8-16); CARBON DIOXIDE 33.7 mmol/L (21-32); POTASSIUM 3.4 mmol/L (3.5-5.1); TOTAL BILIRUBIN 0.4 mg/dL (0.0-1.0)
--- NOTE | 2020-09-10 07:05 | NUR ---
ENDORSED TO RISK MANAGEMENT CONSULTANT NURSE FOR CONTINUITY OF CARE. PATIENT STABLE AT THIS TIME. Addendum: 09/10/20 at 1915 by Cinthia Banuelos RN RN THE TIME IS 1904.
--- NOTE | 2020-09-10 07:10 | NUR ---
RECEIVED REPORT FROM PHARMACIST IN CHARGE NURSE, ANTONIA MONTANEZ, FOR CONTINUITY OF CARE. PATIENT IS LYING IN BED RESTING. AOX2, MAKES NEEDS KNOW, FOLLOW COMMANDS, ABLE TO NOD YES AND NO. SR ON MONITOR. ETT TO VENT, AC/VC FIO2 24, TD 450, PEEP 5, RATE 14. IV ON KALPESH PICC, DOUBLE LUMEN, CLEAN, DRY, AND INTACT, INFUSING DOPAMINE AT 3 MCG/KG/MIN. OGT TO FEEDING, RECEIVING VITAL AF, RUNNING AT 50ML/HR WITH FREE WATER FLUSH EVERY [address], DRAINING YELLOW, CLEAR, URINE. NO BM LAST NIGHT. BLE BLISTERS, PRESSURE INJURY ON COCCYX. LICENSED BONDSMAN, PULSE OXIMETER, AND SAFETY MEASURES IN PLACE. BED LOCKED, BED IN LOW POSITION, HEAD OF BED AT 30 DEGREES. WILL CONTINUE TO MONITOR.
--- NOTE | 2020-09-10 07:12 | NUR ---
ENDORSED TO DAY SHIFT FOR CONTINUITY OF CARE
[2020-09-10 07:20] LABS: MAGNESIUM 1.9 mg/dL (1.8-2.4); PHOSPHORUS 3.5 mg/dL (2.5-4.9)
[2020-09-10] MEDS: LACTOBACILLUS RHAMNOSUS GG 1 EACH CAP PO SCH (08:44)
[2020-09-10] MEDS: ATORVASTATIN 20 MG TAB NG SCH (08:44)
[2020-09-10] MEDS: ASCORBIC ACID 500 MG/5 ML ORASYR PO SCH (08:44)
[2020-09-10] MEDS: ASPIRIN 81 MG TAB.CHEW NG SCH (08:44)
[2020-09-10] MEDS: MULTIVITAMIN/MINERALS 1 TAB PO SCH (08:44)
[2020-09-10] MEDS: PANTOPRAZOLE 40 MG INJ VIAL IVP SCH (08:44)
--- NOTE | 2020-09-10 08:45 | NUR ---
CHECKED RESIDUAL, 5 ML. ADMINISTERED SCHEDULED AM MEDICATIONS. FLUSHED AFTER. ORAL CARE, SHORE CARE, HYGIENE CARE, AND CHG BATH PROVIDED. PATIENT IN COMFORTABLE POSITION AND WATCHING TV. HEAD OF BED AT 30 DEGREE. SAFETY MEASURES IN PLACE. BED IN LOW POSITION, BED LOCKED. WILL CONTINUE TO MONITOR.
--- NOTE | 2020-09-10 09:15 | NUR ---
DR. LORE PERDUE. UPDATED ON PATIENT CONDITION AND STATUS. AWARE OF LOW POTASSIUM, 3.4, ORDERED 40 MEQ K-DUR PRN FOR POTASSIUM LESS THAN 3.5. WILL CONTINUE TO MONITOR.
--- NOTE | 2020-09-10 09:20 | NUR ---
DR. SO PERDUE. UPDATED ON PATIENT CONDITION AND STATUS. AWARE THAT PATIENT IS ON CPAP TRIAL. WILL CONTINUE TO MONITOR.
--- NOTE | 2020-09-10 09:33 | NUR ---
PT PLACED ON CPAP TRIAL PER DR COBB ORDER. PLACED ON CPAP/PS 10, PEEP 5, FIO2 24%. SPO2-96%, HR 89, R 17. WILL CONTINUE TO MONITOR PT ON CPAP TRIAL. PT APPEARS COMFORTABLE AND STABLE. NO RESPIRATORY DISTRESS NOTED AT THIS TIME.
--- NOTE | 2020-09-10 10:46 | NUR ---
DC PLANNING Received call from Naresh at [place], ph [phone], covering for [place]. Updated on pt status. Pt cont in ICU, intubated, failed CPAP trials yest, CPAP trials again today, off drips.
--- NOTE | 2020-09-10 11:05 | NUR ---
CHECKED ON PATIENT. RESTING IN BED, NO SIGNS OF DISTRESS OR PAIN. ON CPAP TRIAL, FIO2 40, PEEP 5, SATURATING AT 94%. WILL CONTINUE TO MONITOR.
[2020-09-10] MEDS ORDERED: POTASSIUM CHLORIDE 10 MEQ TABER PO PRN (11:30)
--- NOTE | 2020-09-10 12:05 | NUR ---
DR. THOMAS PERDUE. UPDATED ON PATIENT STATUS AND CONDITION. AWARE OF ELEVATED WBC AND LOW POTASSIUM. WILL CONTINUE TO MONITOR.
[2020-09-10] MEDS: THERAHONEY GEL 42.5 GM TP SCH (12:29)
[2020-09-10] MEDS: GAUZE TP SCH (12:29)
--- NOTE | 2020-09-10 12:45 | NUR ---
PT ON CPAP TRIAL FROM [address] COBB ORDER. PT PLACED ON CPAP PS 10, PEEP 5 FIO2 24%, SPO2-96%, HR 89, RATE OF 17 ON CPAP. PT TOLERATED WEANING TITRATION WELL. PARAMETERS APPEAR STABLE. NO RESPIRATORY DISTRESS NOTED AT THIS TIME. AFTER WEANING TRIAL PT WAS PLACED BACK ON AC VC 16, VT 450, PEEP 5 FIO2 24%.
--- NOTE | 2020-09-10 12:50 | NUR ---
CHECKED PATIENT RESIDUAL, 5ML. ADMINISTERED SCHEDULED MEDICATION. ADMINISTERED K-DUR FOR K 3.4. HELD FEEDING DUE TO PATIENT VOMITING. PAGED DR. RIZZO. AWAITING CALL BACK. WILL CONTINUE TO MONITOR.
--- NOTE | 2020-09-10 13:05 | NUR ---
DR. RIZZO CALLED BACK. AWARE OF PATIENT VOMITTING. ORDERED TO HOLD FEEDING FOR 24 HOURS AND PRN REGLAN FOR VOMITING AND RESIDUAL > 100 ML. WILL CONTINUE TO MONITOR.
[2020-09-10] MEDS ORDERED: METOCLOPRAMIDE 10 MG/2 ML INJ VIAL IVP PRN (13:10)
--- NOTE | 2020-09-10 14:00 | NUR ---
CHECK ON PATIENT. RESTING IN BED. NO SIGNS OF DISTRESS OR PAIN. WILL CONTINUE TO MONITOR.
--- NOTE | 2020-09-10 17:00 | NUR ---
CHECKED ON PATIENT. RESTING IN BED. NO SIGN OF DISTRESS OR PAIN. 1 BM, CLEANED PATIENT, AND REPOSITIONED. WILL CONTINUE TO MONITOR. WILL ENDORSE TO RN.
--- NOTE | 2020-09-10 19:15 | NUR ---
RECEIVED REPORT FROM PARTHA MONTANEZ. PATIENT HOB 30 DEGREES, ETT TO VENT, VENT SETTINGS AC/VC FIO2 24%, VT 450, RR 16, AND PEEP 5. PATIENT CURRENTLY TOLERATING VENT SETTINGS WELL. WHEN ET TUBE SUCTIONED, MODERATE AMOUNT OF CLEAR AND BLOOD TINGED MUCOUS PRESENT. PATIENT HAS AN OG TUBE IN PLACE, SECURED, INTACT AND FLUSHING WELL. TUBE FEEDING TURNED OFF BY PARTHA MONTANEZ AT [address] RIZZO ORDER, NO TUBE FEED FOR Q24 HOURS DUE TO VOMITING AND ASPIRATION PRECAUTIONS. TUBE FEEDING HELD AT THIS TIME, RESIDUALS 45 ML. PATIENT CONNECTED TO CONTINUOUS CARDIAC MONITORING, NORMAL SINUS RHYTHM AT 92, PULSES STRONG AND REGULAR, NO OBVIOUS SIGNS OF DISTRESS NOTED WHILE AT BEDSIDE OR ON THE MONITOR. PATIENT HAS IV SITES CURRENTLY RIGHT UPPER ARM PICC LINE DOUBLE LUMEN WITH DRESSING DRY, INTACT, SITE FLUSHING WELL, PATENT. IV DRIPS CURRENTLY RUNNING INCLUDE DOPAMINE DRIP AT 3 MCG/KG/MIN. PATIENT DRY WEIGHT 144 KG. PATIENT HAS SHORE CATHETER IN PLACE, INTACT, DRAINING WELL AND SECURED. SKINS NON-INTACT WITH BILATERAL LOWER LEG CELLULITIS, WOUNDS ON THE RIGHT BUTTOCKS, RIGHT INNER THIGH, AND PREVIOUS RIGHT CHEST AREA SURGICAL SCAR. PATIENT CURRENTLY BEING OFFLOADED FROM PRESSURE POINTS WITH USE OF PILLOWS AND FREQUENT REPOSITIONING. PATIENT BED LOCKED AND LOWERED INTO A POSITION OF SAFETY WITH CALL LIGHT WITHIN ARMS REACH OF PATIENT. PATIENT RESTING IN A POSITION OF COMFORT, WILL CONTINUE TO REASSESS OFTEN, CLOSELY MONITOR AND FREQUENTLY ROUND THROUGHOUT THE SHIFT.
--- NOTE | 2020-09-10 20:20 | NUR ---
VAP ORAL CARE, HYGIENE, ET TUBE/ORAL SUCTIONING, REPOSITIONING, SAFETY CHECKS PROVIDED. PATIENT CONTINUES TO TOLERATE VENT SETTINGS AND THERAPIES WELL. NO OBVIOUS SIGNS OF DISTRESS NOTED WHILE AT THE BEDSIDE. SCHEDULED MEDICATIONS GIVEN ORDERED FROM THE MD, TOLERATING WELL. WILL CONTINUE TO CLOSELY MONITOR AND FREQUENTLY ROUND.
--- NOTE | 2020-09-10 22:11 | NUR ---
PATIENT RESTING IN A POSITION OF COMFORT, SLEEPING, HOB 30 DEGREES, ETT TO VENT, TOLERATING VENT SETTINGS AND THERAPIES WELL. PROMOTING A RESTFUL ENVIRONMENT WITH DECREASED STIMULI. WILL CONTINUE TO REASSESS OFTEN, CLOSELY MONITOR AND FREQUENTLY.
[2020-09-11] VITALS (33 sets, daily range): BP systolic 81–134; BP diastolic 34–111
[2020-09-11] MEDS: Z-GUARD PASTE TP SCH ×2 (00:04→13:14)
--- NOTE | 2020-09-11 00:16 | NUR ---
VAP ORAL CARE, ET TUBE/ORAL SUCTIONING, HYGIENE, REPOSITIONING, AND SAFETY CHECKS PROVIDED. PATIENT CONTINUES TO TOLERATE VENT SETTINGS AND THERAPIES WITH NO OBVIOUS SIGNS OF DISTRESS NOTED WHILE AT THE BEDSIDE OR ON THE MONITOR. SCHEDULED MEDICATIONS GIVEN ORDERED FROM THE MD, TOLERATING WELL. WILL CONTINUE TO CLOSELY MONITOR AND FREQUENTLY ROUND.
--- NOTE | 2020-09-11 02:10 | NUR ---
PATIENT SLEEPING IN A POSITION OF COMFORT, RESTING, ETT TO VENT, TOLERATING VENT SETTINGS AND THERAPIES WELL. NO SIGNS OF DISTRESS NOTED WHILE AT BEDSIDE OR ON THE MONITOR. PATIENT SUCTIONED, MODERATE CLEAR SECRETIONS, AIRWAY PATENT, OPEN, CLEAR AND MAINTAINABLE, REPOSITIONED. WILL CONTINUE TO CLOSELY MONITOR, REASSESS OFTEN, AND FREQUENTLY ROUND.
--- NOTE | 2020-09-11 04:10 | NUR ---
MORNING CARE, SPONGE BATH, HYGIENE, ALFA CARE, SHORE CARE, VAP ORAL CARE, ET/ORAL SUCTIONING, WOUND CARE DRESSINGS CHANGED, LINENS CHANGED, GOWN CHANGED, REPOSITIONED AND SAFETY CHECKS PROVIDED. PATIENT TOLERATING VENT SETTINGS AND CURRENT THERAPIES WELL. NO SIGNS OF DISTRESS NOTED WHEN AT BEDSIDE OR ON THE MONITOR. WILL CONTINUE TO REASSESS OFTEN, CLOSELY MONITOR AND FREQUENTLY ROUND.
[2020-09-11 05:37] LABS: ALBUMIN 2.4 g/dL (3.4-5.0); ANION GAP 9.3 (8-16); CARBON DIOXIDE 32.3 mmol/L (21-32); CREATININE 1.9 mg/dL (0.6-1.3); POTASSIUM 3.6 mmol/L (3.5-5.1); TOTAL BILIRUBIN 0.5 mg/dL (0.0-1.0)
--- NOTE | 2020-09-11 05:45 | NUR ---
PATIENT ASLEEP, RESTING IN A POSITION OF COMFORT, HOB 30 DEGREES, ETT TO VENT. NO SIGNS OF DISTRESS OBSERVED AT BEDSIDE OR ON THE MONITOR, WILL CONTINUE TO CLOSELY MONITOR AND FREQUENTLY ROUND.
[2020-09-11] MEDS: MIDODRINE 5 MG TAB PO SCH ×4 (06:09→23:05)
[2020-09-11] MEDS: LEVOTHYROXINE 0.025 MG TAB NG SCH (06:09)
[2020-09-11 06:17] LABS: BASOPHILS % (AUTO) 0.9 % (0.0-2.0); EOSINOPHILS # (AUTO) 0.3 K/uL (0-0.4); EOSINOPHILS % (AUTO) 6.5 % (0.0-4.0); HEMATOCRIT 29.2 % (36-48); HEMOGLOBIN 9.6 g/dL (12.0-16.0); LYMPHOCYTES % (AUTO) 18.7 % (20.5-51.1); MEAN CORPUSCULAR HEMOGLOBIN 30 pg (27-31); MEAN CORPUSCULAR HGB CONC 33 g/dL (33-37); MEAN CORPUSCULAR VOLUME 92.5 fL (80-94); MONOCYTES # (AUTO) 0.4 K/uL (0.8-1.0); MONOCYTES % (AUTO) 7.6 % (1.7-9.3); NEUTROPHILS # (AUTO) 3.5 K/uL (1.8-7.7); NEUTROPHILS % (AUTO) 66.3 % (42.2-75.2); PLATELET COUNT (AUTO) 367 K/uL (140-450); RED BLOOD CELL COUNT(AUTO) 3.16 MIL/uL (4.20-5.40); RED CELL DISTRIBUTION WIDTH 18.3 % (11.6-13.7); WHITE BLOOD COUNT (AUTO) 5.2 K/uL (4.8-10.8)
--- NOTE | 2020-09-11 07:11 | NUR ---
RECEIVED INTUBATED PT WITH A 7.5 ETT SECURED @25 TEETH/GUM ON VENT. SETTINGS AC 16, VT450, PEEP 5 AND FIO2 24%. PT IS ASLEEP AT THIS TIME NOT IN ANY DISTRESS. PT SUCTIONED OBTAINED SMALL AMOUNT OF BLOOD TINGED SECRETIONS, AIRWAY IS PATEN AND ETT IS SECURE WITH ANCHOR FAST. VENT IS PLUGGED INTO A RED OUTLET WITH ALARMS ON AND FUNCTIONING. WILL CONTINUE TO MONITOR.
[2020-09-11] MEDS: ALBUTEROL 0.083% 2.5 MG/3 ML NEBU INH PRN (07:12)
--- NOTE | 2020-09-11 07:25 | NUR ---
RECEIVED BEDSIDE REPORT FROM LEAD COATER NURSE. PATIENT SUPINE IN BED, HOB 30 DEGREES, SLEEPING, ANSWERS TO NAME AND LIGHT TOUCH. BREATHING EVEN AND UNLABORED, ETT TO VENT: ACVC FIO2 24%, VT 450, RR 16, PEEP 5. G TUBE FEEDING ON HOLD UNTIL 1300 TODAY PER MD ORDERS DUE TO PATIENT VOMITING YESTERDAY. SHORE CATHETER IN PLACE, DRAINING TO GRAVITY. RAJENDRA PICC INFUSING DOPAMINE @ 3 MCG/KG/MIN. STORE KEEPER IN PLACE. SAFETY MEASURES IN PLACE.
--- NOTE | 2020-09-11 07:25 | NUR ---
REPORT AND CARE ENDORSED TO DAYSHIFT RN, VS STABLE.
[2020-09-11] MEDS: PANTOPRAZOLE 40 MG INJ VIAL IVP SCH (08:12)
[2020-09-11] MEDS: MULTIVITAMIN/MINERALS 1 TAB PO SCH (08:13)
[2020-09-11] MEDS: ATORVASTATIN 20 MG TAB NG SCH (08:13)
[2020-09-11] MEDS: ASPIRIN 81 MG TAB.CHEW NG SCH (08:13)
[2020-09-11] MEDS: LACTOBACILLUS RHAMNOSUS GG 1 EACH CAP PO SCH (08:13)
[2020-09-11] MEDS: ASCORBIC ACID 500 MG/5 ML ORASYR PO SCH (08:14)
--- NOTE | 2020-09-11 08:20 | NUR ---
ADMINISTERED SCHEDULED MEDS PER MD ORDER. MED EDUCATION PROVIDED, REINFORCEMENT NEEDED. G TUBE RESIDUAL 5 ML, FLUSHED BEFORE AND AFTER MEDS. MORNING HYGIENE PROVIDED: VAP ORAL CARE, CATHETER CARE, CHG BATH, CHANGED ALL DIRTY LINEN. PATIENT REPOSITIONED AND OFFLOADED PRESSURE WITH PILLOWS. UNDERWATER HUNTER TRAPPER IN PLACE. SAFETY MEASURES IN PLACE.
--- NOTE | 2020-09-11 10:43 | NUR ---
PT PLACED ON SBT, CPAP 5 PS 10 AND FIO2 INCREASED TO 28% DUE TO LOW SPO2. PT IS ASLEEP BUT WAKES UP WHEN SPOKEN TO. NURSE MADE AWARE. WILL CONTINUE TO MONITOR TOLERATED.
--- NOTE | 2020-09-11 10:44 | NUR ---
DR GUZMAN ROUNDING ON PATIENT AT BEDSIDE. PER DR GUZMAN, CHANGE TUBE FEEDING FWF TO 200 ML Q6HR INSTEAD OF Q4HR.
--- NOTE | 2020-09-11 11:59 | NUR ---
PT REMAINS ON SBT TOLERATING WELL AT THIS TIME. NURSE AWARE OF PT STATUS WILL CONTINUE TO MONITOR.
--- NOTE | 2020-09-11 12:20 | NUR ---
ADMINISTERED SCHEDULED MIDODRINE PER MD ORDER. MED EDUCATION PROVIDED. ORAL SUCTIONING PROVIDED. PATIENT REPOSITIONED AND OFFLOADED PRESSURE WITH PILLOWS. WHITE SOURER IN PLACE. SAFETY MEASURES IN PLACE. RT AT BEDSIDE, DRAWING ABGS, PATIENT CONTINUES ON SBT TRIAL, TOLERATING WELL, SPO2 94%.
--- NOTE | 2020-09-11 12:32 | NUR ---
PAGED REGARDING ABG RESULTS.
--- NOTE | 2020-09-11 12:38 | NUR ---
ABG RESULTS AND PT STATUS GIVEN TO OVER PHONE. PHYSICIAN STATES TO KEEP PT INTUBATED AND CONTINUE SBT TOMORROW.
--- NOTE | 2020-09-11 13:09 | NUR ---
09/11/20 RD FOLLOW UP COMPLETED PLEASE REFER TO NUTRITION ASSESSMENT UNDER CARE ACTIVITY FOR ESTIMATED NUTRITIONAL NEEDS. 1. WHEN MEDICALLY CLEARED CONTINUE VITAL 1.2 AF @ 50 ML/HR -THIS WILL PROVIDE 1440 KCAL AND 90 GM OF PROTEIN. 2. CONTINUE FREE WATER FLUSH OF 200 ML Q6H PER MD 3. CONSIDER A SWALLOW EVALUATION IF/WHEN PATIENT IS EXTUBATED 4. RD TO FOLLOW-UP 2-3 DAYS, HIGH RISK KIERA BOURNE RD
[2020-09-11] MEDS: THERAHONEY GEL 42.5 GM TP SCH (13:14)
[2020-09-11] MEDS: GAUZE TP SCH (13:14)
[2020-09-11] MEDS: DOPamine 400 MG/D5W PREMIX 250 ML IV PRN (14:00)
--- NOTE | 2020-09-11 16:56 | NUR ---
[facility], , TO CHECK ON PATIENT EXTUBATION PLAN. [facility] UPDATED ON STATUS.
--- NOTE | 2020-09-11 17:41 | NUR ---
VENT CHECK COMPLETED. PT NOT IN ANY DISTRESS AT THIS TIME. VENT ALARMS ON AND FUNCTIONING.
--- NOTE | 2020-09-11 19:15 | NUR ---
ENDORSED TO POWER TRANSMISSION ENGINEER NURSE FOR CONTINUITY OF CARE. STABLE AT THIS TIME.
--- NOTE | 2020-09-11 19:30 | NUR ---
RECEIVED REPORT FROM PARTHA MONTANEZ. PATIENT HOB 30 DEGREES, ETT TO VENT, VENT SETTINGS AC/VC FIO2 24%, VT 450, RR 16, AND PEEP 5. PATIENT ABLE TO NOD YES OR NO TO COMMUNICATE WITH QUESTIONS ASKED. PATIENT CURRENTLY TOLERATING VENT SETTINGS WELL, OXYGEN SATURATION 99%. MINIMAL AMOUNT OF CLEAR AND BLOOD TINGED MUCOUS PRESENT WHEN SUCTIONING ET TUBE, CLEAR SECRETIONS SUCTIONED IN THE MOUTH. PATIENT HAS AN OG TUBE IN PLACE, SECURED, INTACT AND FLUSHING WELL. TUBE TUBE FEEDING VITAL AF RUNNING AT 50 ML/HR, TOLERATING FEEDING WELL. PATIENT CONNECTED TO CONTINUOUS CARDIAC MONITORING, NORMAL SINUS RHYTHM AT 71, PULSES STRONG AND REGULAR, NO OBVIOUS SIGNS OF DISTRESS NOTED WHILE AT BEDSIDE OR ON THE MONITOR. PATIENT HAS IV SITES CURRENTLY RIGHT UPPER ARM PICC LINE DOUBLE LUMEN WITH DRESSING DRY, INTACT, SITE FLUSHING WELL, PATENT. IV DRIPS CURRENTLY RUNNING INCLUDE DOPAMINE DRIP AT 1 MCG/KG/MIN, TOLERATING THERAPY WELL. PATIENT DRY WEIGHT 144 KG. PATIENT HAS SHORE CATHETER IN PLACE, INTACT, DRAINING WELL AND SECURED. SKINS NON-INTACT WITH BILATERAL LOWER LEG CELLULITIS, WOUNDS ON THE RIGHT BUTTOCKS, RIGHT INNER THIGH, AND PREVIOUS RIGHT CHEST AREA SURGICAL SCAR. PROMOTING A RESTFUL ENVIRONMENT WITH DECREASED STIMULI FOR THE PATIENT. PATIENT CURRENTLY BEING OFFLOADED FROM PRESSURE POINTS WITH USE OF PILLOWS AND FREQUENT REPOSITIONING. PATIENT BED LOCKED AND LOWERED INTO A POSITION OF SAFETY WITH CALL LIGHT WITHIN ARMS REACH OF PATIENT. PATIENT RESTING COMFORTABLY, WILL CONTINUE TO REASSESS OFTEN, CLOSELY MONITOR AND FREQUENTLY ROUND THROUGHOUT THE SHIFT.
--- NOTE | 2020-09-11 20:03 | NUR ---
VAP ORAL CARE, ET/ORAL SUCTIONING, HYGIENE, REPOSITIONING AND SAFETY CHECKS PROVIDED. PATIENT CONTINUES TO TOLERATE CURRENT THERAPIES AND VENT SETTINGS IN PLACE. NO SIGNS OF DISTRESS OBSERVED FROM PATIENT WHEN AT BEDSIDE OR ON THE MONITOR, OXYGEN SATURATION 99% AND HR 78. SCHEDULED MEDICATIONS GIVEN PER MD ORDER, TOLERATING WELL. WILL CONTINUE TO CLOSELY MONITOR AND FREQUENTLY ROUND.
--- NOTE | 2020-09-11 22:14 | NUR ---
PATIENT RESTING IN A POSITION OF COMFORT, NO SIGNS OF DISTRESS OBSERVED AT BEDSIDE OR ON THE MONITOR. PATIENT ETT TO VENT, AIRWAY OPEN CLEAR AND MAINTAINABLE, SUCTIONED ET TUBE, CLEAR/BLOOD TINGED SECRETIONS, MINIMAL. PATIENT TOLERATING VENT SETTINGS AND CURRENT THERAPIES WELL. WILL CONTINUE TO CLOSELY MONITOR AND FREQUENTLY ROUND.
[2020-09-12] VITALS (34 sets, daily range): BP systolic 87–147; BP diastolic 45–95
--- NOTE | 2020-09-12 00:05 | NUR ---
VAP ORAL CARE, ET TUBE/ORAL SUCTIONING, REPOSITIONING, HYGIENE AND SAFETY CHECKS PROVIDED. PATIENT SLEEPING IN A POSITION OF COMFORT, TOLERATING CURRENT THERAPIES AND VENT SETTINGS WELL, OXYGEN SATURATION 98%, HR 70, NO SIGNS OF DISTRESS OBSERVED ON THE MONITOR OR AT BEDSIDE. WILL CONTINUE TO REASSESS OFTEN, CLOSELY MONITOR AND FREQUENTLY ROUND.
[2020-09-12] MEDS: Z-GUARD PASTE TP SCH ×2 (00:20→12:11)
--- NOTE | 2020-09-12 02:11 | NUR ---
PATIENT CONTINUES TO SLEEP/REST, PATIENT STILL ABLE TO COMMUNICATE BY NODDING YES OR NO, WHEN ASKED, DENIES ANY PAIN. REPOSITIONED AND RESTING IN A POSITION OF COMFORT. NO SIGNS OF DISTRESS OBSERVED WHILE AT BEDSIDE OR ON THE MONITOR. WILL CONTINUE TO CLOSELY MONITOR AND FREQUENTLY ROUND.
[2020-09-12] MEDS: MIDODRINE 5 MG TAB PO SCH ×3 (05:44→17:57)
[2020-09-12] MEDS: LEVOTHYROXINE 0.025 MG TAB NG SCH (05:45)
--- NOTE | 2020-09-12 06:10 | NUR ---
PATIENT CONTINUES SLEEP AND RESTING COMFORTABLY, NO OBVIOUS SIGNS OF DISTRESS WHEN AT BEDSIDE OR ON THE MONITOR. PATIENT CONTINUES TO TOLERATE CURRENT SETTINGS AND THERAPIES WELL. WILL CONTINUE TO CLOSELY MONITOR AND FREQUENTLY ROUND.
[2020-09-12 06:16] LABS: BASOPHILS # (AUTO) 0.1 K/uL (0.00-0.22); EOSINOPHILS # (AUTO) 0.3 K/uL (0-0.4); EOSINOPHILS % (AUTO) 5.3 % (0.0-4.0); HEMATOCRIT 28.2 % (36-48); HEMOGLOBIN 9.3 g/dL (12.0-16.0); LYMPHOCYTES # (AUTO) 1.1 K/uL (2.5-16.5); MEAN CORPUSCULAR HEMOGLOBIN 30 pg (27-31); MEAN CORPUSCULAR HGB CONC 33 g/dL (33-37); MEAN CORPUSCULAR VOLUME 91.2 fL (80-94); MONOCYTES # (AUTO) 0.5 K/uL (0.8-1.0); MONOCYTES % (AUTO) 8.8 % (1.7-9.3); NEUTROPHILS # (AUTO) 3.5 K/uL (1.8-7.7); NEUTROPHILS % (AUTO) 64.9 % (42.2-75.2); PLATELET COUNT (AUTO) 340 K/uL (140-450); RED CELL DISTRIBUTION WIDTH 18.3 % (11.6-13.7); WHITE BLOOD COUNT (AUTO) 5.4 K/uL (4.8-10.8)
[2020-09-12 07:01] LABS: ALBUMIN 2.7 g/dL (3.4-5.0); ANION GAP 10.7 (8-16); CARBON DIOXIDE 31.8 mmol/L (21-32); CREATININE 1.9 mg/dL (0.6-1.3); POTASSIUM 3.5 mmol/L (3.5-5.1); TOTAL BILIRUBIN 0.4 mg/dL (0.0-1.0)
--- NOTE | 2020-09-12 07:20 | NUR ---
RECEIVED CALL FROM DR. GRUBBS FOR ORDER OF MOVING G TUBE 28 CM PROXIMALLY AND TO TAKE A KUB CHEST XRAY POST MOVING THE G TUBE. FEEDING TURNED OFF AT THIS TIME AND AWAITING CHEST XRAY TO COME TO BEDSIDE. DAYSHIFT RN NOTIFIED OF ORDERS, WILL CARRY OUT ORDERS.
--- NOTE | 2020-09-12 07:25 | NUR ---
REPORT AND CARE ENDORSED TO D, VS STABLE.
--- NOTE | 2020-09-12 07:26 | NUR ---
HANDOFF RECEIVED FROM VICE PRESIDENT OF TALENT ACQUISITION RN. PT IS OFF SEDATION, ALERT AND AWAKE, NODS YES OR NO. PT IS ETT TO VENT ACVC FIO2 24%, VT 450, PEEP 5, R 16. PT IS SR ON THE MONITOR AT THIS TIME. PT HAS KALPESH PICC LINE WITH DOPAMINE RUNNING AT 1 MCG/KG/MIN. PT HAS OG TUBE WITH VITAL RUNNING AT 50 ML/HR AND FWF 200 ML/HR Q 6HR. PT HAS SHORE IN PLACE DRAINING TO GRAVITY. HOB IS 30 DEG WITH BED IN LOW, LOCKED POSITION. WILL CONTINUE TO MONITOR.
--- NOTE | 2020-09-12 08:00 | NUR ---
OGT ADVANCED 28CM PER RADIOLOGY REPORT, PLACEMENT CONFIRMED WITH [facility], CONFIRMATION XR ORDERED, PT CÉSAR WELL
--- NOTE | 2020-09-12 09:20 | NUR ---
DR. RIZZO AND DR. TORREZ SEEING PT
--- NOTE | 2020-09-12 09:28 | NUR ---
PER PT PLACED ON SBT CPAP 5 PS 10 AND FIO2 28%. PHYSICIAN STATES TO SBT FOR 1-2 HOURS OBTAIN ABG AND WEANING PARAMETERS, IF EVERYTHING IS ADEQUATE ALONG WITH PT MENTAL STATUS TO EXTUBATE PT AND PLACE ON BIPAP.
[2020-09-12] MEDS: PANTOPRAZOLE 40 MG INJ VIAL IVP SCH (09:35)
[2020-09-12] MEDS: LACTOBACILLUS RHAMNOSUS GG 1 EACH CAP PO SCH (09:40)
[2020-09-12] MEDS: ASCORBIC ACID 500 MG/5 ML ORASYR PO SCH (09:40)
[2020-09-12] MEDS: MULTIVITAMIN/MINERALS 1 TAB PO SCH (09:40)
[2020-09-12] MEDS: ATORVASTATIN 20 MG TAB NG SCH (09:41)
[2020-09-12] MEDS: ASPIRIN 81 MG TAB.CHEW NG SCH (09:41)
--- NOTE | 2020-09-12 09:46 | NUR ---
PER KUB RESULT, OGT RE-ADVANCED 5 CM.
--- NOTE | 2020-09-12 10:06 | NUR ---
AM MEDS GIVEN PER ORDER. OGT RESIDUAL 200ML.
--- NOTE | 2020-09-12 10:08 | NUR ---
PT REMAINS ON SBT TOLERATING WELL AT THIS TIME. NURSE RAMIREZ BEDSIDE. WILL CONTINUE TO MONITOR.
--- NOTE | 2020-09-12 11:03 | NUR ---
DR TORREZ PAGED AND CALLED BACK, KUB RESULT REPORTED "DILATED LOOPS OF GAS FILLED SMALL BOWL SUSPICIOUS FOR ILEUS VERSUS SMALL BOWEL OBSTRUCTION" ORDERS RECEIVED.
--- NOTE | 2020-09-12 11:28 | NUR ---
PAGED REGARDING ABG RESULTS AND TO UPDATE PT STATUS.
--- NOTE | 2020-09-12 12:05 | NUR ---
ABG RESULTS AND PT STATUS ALONG WITH WEANING PARAMETERS GIVEN TO . PHYSICIAN STATES TO EXTUBATE PT AND PLACE ON BIPAP. NURSE AWARE.
[2020-09-12] MEDS: DOCUSATE 100 MG/10 ML UDC GT SCH (12:10)
[2020-09-12] MEDS: THERAHONEY GEL 42.5 GM TP SCH (12:11)
[2020-09-12] MEDS: GLYCERIN ADULT 1 SUPP RC SCH ×3 (12:11→14:49)
[2020-09-12] MEDS: GAUZE TP SCH (12:11)
--- NOTE | 2020-09-12 12:20 | NUR ---
MEDICATIONS ADMINISTERED PER ORDER. PT TOLERATED WELL. TEMPERATURE 97.4 AXILLARY. RT AT BEDSIDE AT THIS TIME TO EXTUBATE.
--- NOTE | 2020-09-12 12:20 | NUR ---
POSTIVE LEAK TEST. PT EXTUBATED AND PLACED ON BIPAP. SETTINGS 18/8,R12 AND FIO2 85%. PT NOT IN ANY DISTRESS AT THIS TIME. BIPAP ALARMS ON AND FUNCTIONING. NO STRIDOR HEARD ON AUSCULTATION. WILL CONTINUE TO MONITOR.
--- NOTE | 2020-09-12 13:00 | NUR ---
FIO2 TITRATED TO 70%. NURSE MADE AWARE. SPO2 97%. WILL CONTINUE TO MONITOR.
--- NOTE | 2020-09-12 14:48 | NUR ---
PT HAD LARGE, SOFT BM. SUPPOSITORY NOT ADMINISTERED. PT CLEANED, ALL LINENS CHANGED. WOUND CARE PROVIDED ORDERED. PT REPOSITIONED AND OFF LOADED WITH PILLOWS.
--- NOTE | 2020-09-12 14:59 | NUR ---
FIO2 TITRATED TO 50% PT TOLERATING BIPAP WELL.
--- NOTE | 2020-09-12 16:50 | NUR ---
FIO2 TITRATED TO 28%. PT NOT IN ANY DISTRESS. BIPAP ALARMS REMAIN ON AND FUNCTIONING.
--- NOTE | 2020-09-12 17:24 | NUR ---
DR. LUTHER SCHNEIDER SEEING PT
[2020-09-12] MEDS: FUROSEMIDE 20 MG/2 ML VIAL IVP SCH ×2 (17:56→20:34)
--- NOTE | 2020-09-12 18:07 | NUR ---
MEDICATIONS ADMINISTERED PER ORDER, CONFIRMED PLACEMENT OF NG TUBE BY AUSCULTATION. PT TOLERATED WELL.
[2020-09-12] MEDS: ALBUTEROL 0.083% 2.5 MG/3 ML NEBU INH PRN (19:17)
--- NOTE | 2020-09-12 19:22 | NUR ---
HANDOFF GIVEN TO MANAGED CARE COORDINATOR RN FOR CONTINUITY OF CARE
--- NOTE | 2020-09-12 19:22 | NUR ---
RECEIVED PATIENT FROM AM SHIFT NURSE FOR CONTINUITY OF CARE. ALERT AND ABLE TO MAKE NEEDS KNOWN. RESPIRATIONS EVEN, UNLABORED. CONTINUES ON BIPAP 28% WITH O2SAT 97%. RT AT BEDSIDE GIVING BREATHING TREATMENT. S1/S2 AUSCULTATED. SKIN WARM, DRY. NO C/O PAIN. NO S/S ACUTE DISTRESS. RIGHT UPPER ARM PICC PATENT/INTACT. ABDOMEN ROUND, NONTENDER. BOWEL SOUNDS ACTIVE x4 QUADRANTS. SHORE CATHETER PATENT WITH YELLOW URINE DRAINING TO GRAVITY. PLAN OF CARE DISCUSSED. FREQUENT ROUNDS MADE BY ALL STAFF. CALL LIGHT IN REACH AT ALL TIMES.
--- NOTE | 2020-09-12 21:16 | NUR ---
DUE MEDS GIVEN. PATIENT RESTING COMFORTABLY IN BED WATCHING TV. NO S/S RESPIRATORY DISTRESS. NO C/O PAIN. FREQUENT ROUNDS BY ALL STAFF. CALL LIGHT IN REACH.
--- NOTE | 2020-09-12 23:00 | NUR ---
PATIENT WATCHING TV, RESTING COMFORTABLY. NO C/O PAIN. FREQUENT ROUNDS. CALL LIGHT IN REACH.
[2020-09-13] VITALS (21 sets, daily range): BP systolic 113–144; BP diastolic 49–109
--- NOTE | 2020-09-13 01:00 | NUR ---
MADE ROUNDS. PATIENT IS ASLEEP. NO S/S RESPIRATORY DISTRESS. CALL LIGHT IN REACH.
[2020-09-13] MEDS: Z-GUARD PASTE TP SCH ×2 (01:14→12:15)
--- NOTE | 2020-09-13 03:30 | NUR ---
PATIENT IS ASLEEP.
--- NOTE | 2020-09-13 05:00 | NUR ---
INCONTINENT CARE RENDERED.
[2020-09-13 06:00] LABS: ALBUMIN 3.1 g/dL (3.4-5.0); CARBON DIOXIDE 31.6 mmol/L (21-32); CREATININE 1.9 mg/dL (0.6-1.3); POTASSIUM 3.6 mmol/L (3.5-5.1); TOTAL BILIRUBIN 0.6 mg/dL (0.0-1.0)
[2020-09-13] MEDS: MIDODRINE 5 MG TAB PO SCH ×4 (06:00→18:00)
[2020-09-13 06:02] LABS: BASOPHILS # (AUTO) 0.1 K/uL (0.00-0.22); BASOPHILS % (AUTO) 1.1 % (0.0-2.0); EOSINOPHILS # (AUTO) 0.2 K/uL (0-0.4); EOSINOPHILS % (AUTO) 3.6 % (0.0-4.0); HEMATOCRIT 29.5 % (36-48); HEMOGLOBIN 9.5 g/dL (12.0-16.0); LYMPHOCYTES # (AUTO) 1.1 K/uL (2.5-16.5); LYMPHOCYTES % (AUTO) 17.6 % (20.5-51.1); MEAN CORPUSCULAR HEMOGLOBIN 30 pg (27-31); MEAN CORPUSCULAR HGB CONC 32 g/dL (33-37); MEAN CORPUSCULAR VOLUME 92.5 fL (80-94); MONOCYTES # (AUTO) 0.4 K/uL (0.8-1.0); MONOCYTES % (AUTO) 7.1 % (1.7-9.3); NEUTROPHILS # (AUTO) 4.3 K/uL (1.8-7.7); NEUTROPHILS % (AUTO) 70.6 % (42.2-75.2); PLATELET COUNT (AUTO) 368 K/uL (140-450); RED BLOOD CELL COUNT(AUTO) 3.19 MIL/uL (4.20-5.40); RED CELL DISTRIBUTION WIDTH 18.7 % (11.6-13.7)
[2020-09-13] MEDS: LEVOTHYROXINE 0.025 MG TAB NG SCH (06:20)
--- NOTE | 2020-09-13 06:31 | NUR ---
PATIENT PULLED OUT NGT. REFUSED X3. RISKS AND BENEFITS EXPLAINED.
--- NOTE | 2020-09-13 07:15 | NUR ---
HANDOFF RECEIVED FROM ENGINEER GAS PUMPING STATION RN. PT IS OFF SEDATION, ALERT AND AWAKE, NODS YES OR NO. PT IS ON BIPAP AT 28%, SATURATING WELL, NO SIGNS OF RESPIRATORY DISTRESS. PT IS SR ON THE MONITOR AT THIS TIME. PT HAS KALPESH PICC LINE. PER ENGINEER GAS PUMPING STATION, PT PULLED OUT NG TUBE AT 0630, ENGINEER GAS PUMPING STATION RN PLACED IN [facility]. PT HAS SHORE IN PLACE DRAINING TO GRAVITY. HOB IS 30 DEG WITH BED IN LOW, LOCKED POSITION. WILL CONTINUE TO MONITOR.
--- NOTE | 2020-09-13 07:17 | NUR ---
ENDORSED PATIENT TO AM SHIFT NURSE FOR CONTINUITY OF CARE.
--- NOTE | 2020-09-13 07:58 | NUR ---
PT TAKEN OFF OF BIPAP AND PLACED ON 6L NC. PT NOT IN ANY DISTRESS AT THIS TIME. PRN BREATHING TX TO BE ADMINISTERED. WILL CONTINUE TO MONITOR.
[2020-09-13] MEDS: ALBUTEROL 0.083% 2.5 MG/3 ML NEBU INH PRN ×3 (08:00→19:28)
[2020-09-13] MEDS: DOCUSATE 100 MG/10 ML UDC GT SCH (08:01)
[2020-09-13] MEDS: ATORVASTATIN 20 MG TAB NG SCH (08:02)
[2020-09-13] MEDS: ASPIRIN 81 MG TAB.CHEW NG SCH (08:02)
[2020-09-13] MEDS: LACTOBACILLUS RHAMNOSUS GG 1 EACH CAP PO SCH (08:02)
[2020-09-13] MEDS: ASCORBIC ACID 500 MG/5 ML ORASYR PO SCH (08:02)
[2020-09-13] MEDS: MULTIVITAMIN/MINERALS 1 TAB PO SCH (08:02)
[2020-09-13] MEDS: PANTOPRAZOLE 40 MG INJ VIAL IVP SCH (09:18)
[2020-09-13] MEDS: FUROSEMIDE 20 MG/2 ML VIAL IVP SCH ×2 (09:18→20:34)
--- NOTE | 2020-09-13 09:30 | NUR ---
MEDICATIONS ADMINISTERED PER ORDER, PT TOLERATED WELL. PO MEDICATIONS HELD DUE TO PENDING SWALLOW EVAL. OTHER MEDICATIONS ADMINISTERED PER ORDER. ORAL CARE AND CHG BATH PROVIDED. TEMPERATURE 97.8 TEMPORALLY. PT SITTING UP IN BED WATCHING TELEVISION.
--- NOTE | 2020-09-13 10:16 | NUR ---
DR. TORREZ SEEING PT, AWARE OF KUB RESULTS OF GLOBAL ILEUS. STATED WE WILL JUST WATCH THE PT FOR NOW. NO CHANGES IN ORDER
[2020-09-13] MEDS: GAUZE TP SCH (12:15)
[2020-09-13] MEDS: THERAHONEY GEL 42.5 GM TP SCH (12:15)
--- NOTE | 2020-09-13 13:43 | NUR ---
NASAL CANNULA TITRATED TO 4L, PT NOT IN ANY DISTRESS AT THIS TIME.
--- NOTE | 2020-09-13 16:09 | NUR ---
PT HAD MODERATE LIQUIDY BROWN BM. PT CLEANED, CHANGED ALL LINENS. REPOSITIONED AND OFFLOADED WITH PILLOWS. TEMPERATURE 97.1
--- NOTE | 2020-09-13 16:31 | NUR ---
DR. LUTHER SCHNEIDER SEEING PT
--- NOTE | 2020-09-13 18:07 | NUR ---
PO MEDICATIONS STILL HELD DUE TO PENDING SWALLOW EVAL, PT COUGHING AND CLEARING THROAT. BP 116/72 AT THIS TIME.
--- NOTE | 2020-09-13 19:12 | NUR ---
HANDOFF GIVEN TO MANAGER ED RN FOR CONTINUITY OF CARE
--- NOTE | 2020-09-13 19:13 | NUR ---
RECEIVED PATIENT FROM AM SHIFT NURSE FOR CONTINUITY OF CARE. PT AWAKE ALERT FOLLOWING COMMANDS. SITTING UP IN BED. PT ON NASAL CANNULA 3-4 L SPO2 98% DENIES CP/SOB. SR ON MONITOR 70S +2 GEN EDEMA, PALPABLE PULSES. ABD LARGE ROUND, DISTENDED, ACTIVE BOWEL SOUNDS. + BM THIS AM. NPO @ THIS TIME. SHORE CATH IN PLACE, CLEAR YELLOW URINE NOTED. SKIN NON INTACT. R UPPER ARM PICC IN PLACE, IVF TKO. PT ON SPECIALTY MATRESS, BED LOCKED IN LOWEST POSITION. CALL LIGHT WITHIN REACH. DENIES PAIN. WILL CONTINUE TO OBSERVE.
--- NOTE | 2020-09-13 19:32 | NUR ---
PT RESTING IN SEMI-FOWLERS ON 4LNC W/ SPO2 95%. PT HAD SLIGHT EXP WHZ AND PRN Tx WAS GIVEN. WILL CONTINUE TO MONITOR AND INITIATE NOC NIV AT A LATER TIME WHEN PT IS READY FOR BED
--- NOTE | 2020-09-13 22:08 | NUR ---
PT IS ASKING TO RETURN LATER FOR NOC NIV. PT IS AWAKE WATCHING TV W/ NO DISTRESS NOTED.
--- NOTE | 2020-09-13 22:15 | NUR ---
PT AWAKE SITTING UP IN BED WATCHING TELEVISION; DENIES PAIN @ THIS TIME. WILL CONTINUE TO OBSERVE.
[2020-09-14] VITALS (15 sets, daily range): BP systolic 116–151; BP diastolic 68–90
--- NOTE | 2020-09-14 00:10 | NUR ---
PT HAS EYES CLOSED; ON BIPAP @ THIS TIME. NO RESP DISTRESS NOTED. FLACC 0 WILL CONTINUE TO MONITOR.
--- NOTE | 2020-09-14 00:42 | NUR ---
PT PLACED ON BIPAP W/ SETTINGS THEY WERE ON STDBY 02/12 f16 28%. BIPAP PLUGGED INTO RED OUTLET W/ ALARMS ON & AUDIBLE WILL CONTINUE TO MONITOR
[2020-09-14] MEDS: Z-GUARD PASTE TP SCH ×2 (01:15→13:00)
--- NOTE | 2020-09-14 02:15 | NUR ---
PT TOLERATING NASAL CANNULA @ THIS TIME. NO ACUTE DISTRESS NOTED. WILL CONTINUE TO MONITOR.
--- NOTE | 2020-09-14 03:16 | NUR ---
PT AWOKE AND WAS REPLACED ON 4LNC W/ SPO2 95%. BIPAP PLACED ON STDBY @ BEDSIDE WILL CONTINUE TO MONITOR
--- NOTE | 2020-09-14 04:35 | NUR ---
AM CARE DONE; LINEN CHANGED. PT TURNED AND REPOSITIONED; X1 BM NOTED WILL CONTINUE TO MONITOR.
[2020-09-14] MEDS: MIDODRINE 5 MG TAB PO SCH ×4 (06:00→17:52)
[2020-09-14 06:01] LABS: BASOPHILS % (AUTO) 0.9 % (0.0-2.0); EOSINOPHILS # (AUTO) 0.2 K/uL (0-0.4); EOSINOPHILS % (AUTO) 3.6 % (0.0-4.0); HEMATOCRIT 27.5 % (36-48); HEMOGLOBIN 8.8 g/dL (12.0-16.0); LYMPHOCYTES # (AUTO) 0.7 K/uL (2.5-16.5); LYMPHOCYTES % (AUTO) 14.8 % (20.5-51.1); MEAN CORPUSCULAR HEMOGLOBIN 30 pg (27-31); MEAN CORPUSCULAR HGB CONC 32 g/dL (33-37); MEAN CORPUSCULAR VOLUME 92.6 fL (80-94); MONOCYTES # (AUTO) 0.4 K/uL (0.8-1.0); MONOCYTES % (AUTO) 8.9 % (1.7-9.3); NEUTROPHILS # (AUTO) 3.4 K/uL (1.8-7.7); NEUTROPHILS % (AUTO) 71.8 % (42.2-75.2); PLATELET COUNT (AUTO) 352 K/uL (140-450); RED BLOOD CELL COUNT(AUTO) 2.97 MIL/uL (4.20-5.40); RED CELL DISTRIBUTION WIDTH 18.8 % (11.6-13.7); WHITE BLOOD COUNT (AUTO) 4.8 K/uL (4.8-10.8)
[2020-09-14 06:13] LABS: ALBUMIN 3.3 g/dL (3.4-5.0); ANION GAP 14.6 (8-16); CARBON DIOXIDE 32.8 mmol/L (21-32); CREATININE 1.6 mg/dL (0.6-1.3); POTASSIUM 3.4 mmol/L (3.5-5.1); TOTAL BILIRUBIN 0.5 mg/dL (0.0-1.0)
--- NOTE | 2020-09-14 06:19 | NUR ---
FLACC 0, PT AROUSABLE, NO S/S OF DISTRESS NOTED. WILL CONTINUE TO MONITOR.
[2020-09-14] MEDS: LEVOTHYROXINE 0.025 MG TAB NG SCH (06:21)
--- NOTE | 2020-09-14 07:23 | NUR ---
REPORT GIVEN TO DAY SHIFT FOR CONTINUITY OF CARE.
--- NOTE | 2020-09-14 07:24 | NUR ---
RECEIVED BEDSIDE REPORT FROM DRUG COORDINATOR NURSE CODY FOR CONTINUITY OF CARE. PATIENT IS RESTING ON BED, AROUSABLE TO VOICE, ON BIPAP FIO2 28%, IPAP 18, RATE 16, SPO2 97% AT THIS TIME. NO SIGNS OF ACUTE DISTRESS NOTED. [place] PICC DOUBLE LUMEN, CLEAN AND INTACT, TKO. SKIN CLEAN, WARM TO TOUCH, WOUND DRESSINGS INTACT. PILLOW PLACED TO OFFLOAD PRESSURE, HEEL PROTECTORS IN PLACE. ABDOMEN ROUND AND NON-DISTENDED. SHORE IN PLACE, DRAINING WITH GRAVITY. SAFETY MEASURES IN PLACE. FALL RISK PROTOCOL IN PLACE. BED IN LOW POSITION, HOB ELEVATED, AND BED LOCKED.
--- NOTE | 2020-09-14 07:25 | NUR ---
PT TAKEN OFF OF BIPAP AND PLACED ON 4L NC, PER ORDER FOR PT TO BE OFF BIPAP PRN DURING DAY. PT NOT IN ANY DISTRESS. PRN BREATHING TX TO BE ADMINISTERED. WILL CONTINUE TO MONITOR.
[2020-09-14] MEDS: ALBUTEROL 0.083% 2.5 MG/3 ML NEBU INH PRN ×2 (07:28→15:27)
--- NOTE | 2020-09-14 08:21 | NUR ---
BEDSIDE SWALLOW EVALUATION DONE WITH ICE CHIPS, PUDDING AND JELLO, PATIENT ABLE TO SWALLOW WITHOUT ANY ISSUE, DENIED ANY PAIN, NO COUGHING NOTED WHILE SWALLOWING.
--- NOTE | 2020-09-14 08:23 | NUR ---
DR RIZZO ASSESSING PATIENT AT BEDSIDE. RECEIVED TORB ORDER TO CHANGE DIET TO SOFT DIET. WILL INPUT ORDER.
[2020-09-14] MEDS: ATORVASTATIN 20 MG TAB NG SCH (08:58)
[2020-09-14] MEDS: LACTOBACILLUS RHAMNOSUS GG 1 EACH CAP PO SCH (08:58)
[2020-09-14] MEDS: DOCUSATE 100 MG/10 ML UDC GT SCH (08:58)
[2020-09-14] MEDS: MULTIVITAMIN/MINERALS 1 TAB PO SCH (08:58)
[2020-09-14] MEDS: PANTOPRAZOLE 40 MG INJ VIAL IVP SCH (08:58)
[2020-09-14] MEDS: ASCORBIC ACID 500 MG/5 ML ORASYR PO SCH (08:58)
[2020-09-14] MEDS: FUROSEMIDE 20 MG/2 ML VIAL IVP SCH (08:58)
[2020-09-14] MEDS: ASPIRIN 81 MG TAB.CHEW NG SCH (08:58)
--- NOTE | 2020-09-14 08:59 | NUR ---
AM SCHEDULED MEDS GIVEN WITH PUDDING, PATIENT TOLERATED FINE, WITHOUT ANY EVENT. AM HYGIENE CARE PROVIDED. WITH ASSIST, REPOSITIONED PATIENT, PILLOWS PLACED TO OFFLOAD PRESSURE, HEEL PROTECTORS APPLIED BILATERALLY. PATIENT IS AWAKE AND WATCHING TV ON BED, 4 LPM VIA NC, SPO2 98%. NO SIGNS OF ACUTE DISTRESS NOTED. SAFETY MEASURES IN PLACE. BED IN LOW POSITION, CALL LIGHT WITHIN REACH, DEMONSTRATED TO PATIENT ON HOW TO USE THE CALL LIGHT FOR ANY ASSISTANCE, AND BED LOCKED.
--- NOTE | 2020-09-14 09:10 | NUR ---
POTASSIUM 3.4 FROM AM LAB, 40 MEQ K-DUR GIVEN WITH PUDDING, PATIENT TOLERATED FINE IN HIGH BLUE POSITION. NO SIGNS OF ACUTE DISTRESS NOTED. PATIENT IS WATCHING TV ON BED COMFORTABLY AT THIS TIME. SAFETY MEASURES IN PLACE.
--- NOTE | 2020-09-14 10:36 | NUR ---
DR TORREZ IS ASSESSING AND TALKING TO PATIENT AT BEDSIDE.
--- NOTE | 2020-09-14 11:15 | NUR ---
WITH ASSIST, REPOSITIONED PATIENT, PILLOWS PLACED TO OFFLOAD PRESSURE, PATIENT TOLERATED WELL. PATIENT AWAKE AND RESTING ON BED, DENIED OF ANY PAIN, SOB, OR ANY OTHER DISTRESS. SAFETY MEASURES IN PLACE.
--- NOTE | 2020-09-14 12:02 | NUR ---
ASSISTED PATIENT TO EAT LUNCH, PATIENT TOLERATED FINE WITHOUT ANY EVENT. SAFETY MEASURES IN PLACE.
--- NOTE | 2020-09-14 12:22 | NUR ---
MIDODRINE HELD DUE TO PATIENT'S BP 118/72 MAP 89 PULSE 93. PATIENT IS AWAKE AND WATCHING TV ON BED, NO SIGNS OF ACUTE DISTRESS NOTED. SAFETY MEASURES IN PLACE.
[2020-09-14] MEDS: THERAHONEY GEL 42.5 GM TP SCH (13:00)
[2020-09-14] MEDS: GAUZE TP SCH (13:00)
--- NOTE | 2020-09-14 13:02 | NUR ---
DRESSINGS ON BILATERAL LOWER EXTREMITIES, DRY AND INTACT, REINFORCED. WITH ASSIST, WOUND CARE PROVIDED, CHANGED DRESSING ON R ISCHIUM, THERAHONEY APPLIED. REPOSITIONED PATIENT, PILLOWS PLACED TO OFFLOAD PRESSURE, HEEL PROTECTORS IN PLACE. PATIENT IS RESTING ON BED AND WATCHING TV, NO SIGNS OF DISTRESS NOTED. SAFETY MEASURES IN PLACE. BED IN LOW POSITION, BED ALARM ACTIVATED, BED LOCKED, AND CALL LIGHT WITHIN REACH, INSTRUCTED PATIENT TO USE THE CALL LIGHT FOR ANY ASSISTANCE AND REINFORCEMENT NEEDED DUE TO PATIENT'S HX OF LEARNING DEFICIT.
--- NOTE | 2020-09-14 14:20 | NUR ---
RECEIVED CALL FROM PATIENT'S MOTHER MARILEE, UPDATED HER ON PATIENT'S CONDITION, ANSWERED ALL HER QUESTIONS. ARIELYANE IS AWARE THAT PATIENT IS GOING TO TRANSFER TO [facility] [address] THIS AFTERNOON.
--- NOTE | 2020-09-14 14:24 | NUR ---
PATIENT IS TALKING ON THE PHONE WITH MOTHER MILRED.
--- NOTE | 2020-09-14 14:35 | NUR ---
DR DANIELS IS ASSESSING PATIENT AT BEDSIDE.
[2020-09-14] MEDS ORDERED: POTASSIUM CHLORIDE 30 MEQ in DEXTROSE 5% 1,000 ML IV SCH (14:45)
--- NOTE | 2020-09-14 15:16 | NUR ---
PATIENT TRANSFERRED TO ROOM 123B WITHOUT ANY EVENT, TELE MONITOR APPLIED. POSITIONED PATIENT COMFORTABLY, PILLOWS PLACED TO OFFLOAD PRESSURE. SAFETY MEASURES IN PLACE.
--- NOTE | 2020-09-14 15:28 | NUR ---
IVF STARTED PER DR GUZMAN ORDER. RT IS GIVING BREATHING TREATMENT. NO SIGNS OF ACUTE DISTRESS NOTED. SAFETY MEASURES IN PLACE.
--- NOTE | 2020-09-14 16:20 | NUR ---
PATIENT HAVE A SOFT YELLOW BM, WITH ASSIST, PROVIDED HYGIENE CARE, CHANGED DRESSING ON SACRAL. REPOSITIONED PATIENT, PILLOWS PLACED TO OFFLOAD PRESSURE, HEEL PROTECTOR IN PLACE. SAFETY MEASURES IN PLACE.
--- NOTE | 2020-09-14 16:51 | NUR ---
09/14/20 RD FOLLOW UP COMPLETED. PLEASE REFER TO NUTRITION PROGRESS NOTES UNDER CARE ACTIVITY FOR ESTIMATED NUTRITIONAL NEEDS. RD RECOMMENDATIONS: 1. RECOMMEND CONTINUE MECHANICAL SOFT DIET TOLERATED. 2. ADVANCE DIET IF MEDICALLY CLEARED/ TOLERATED. 3. MONITOR PO INTAKE. 4. F/U 3-5 DAYS; MODERATE RISK ANDREW TOBAR MBA, RD
--- NOTE | 2020-09-14 17:52 | NUR ---
BP 145/71 PULSE 95, HELD MIDODRINE. PATIENT IS WATCHING TV ON BED COMFORTABLY. SAFETY MEASURES IN PLACE.
--- NOTE | 2020-09-14 19:19 | NUR ---
ENDORSED PATIENT TO FIELD COLLECTOR NURSE CODY FOR CONTINUITY OF CARE. PATIENT IS IN STABLE CONDITION.
--- NOTE | 2020-09-14 19:30 | NUR ---
RECEIVED REPORT FROM DAY SHIFT RN; PT AWAKE ALERT TO NAME; DELAYED @ TIMES ABLE TO EXPRESS NEEDS AND WANTS. FOLLOWING COMMANDS. ABLE TO MOVE EXTREMITIES. LUNGS DIMINISHED, OCCASIONAL EXPIRATORY WHEEZE. DENIES CP/SOB @ THIS TIME ON NC 3-4 L, BIPAP PRN. PT IS SR ON MONITOR, PALPABLE PULSES TO EXTREMITIES; +2 EDEMA GENERALIZED NOTED. ABD ROUND DISTENDED; + BM 09/14, INCONTINENT TO STOOL. SHORE CATH IN PLACE; YELLOW URINE NOTED. SKIN NON INTACT; BILATERAL WOUNDS TO LEGS; DRESSING CDI. R ISCHIUM HEALING WOUND CDI. BED LOCKED IN LOWEST POSITION. NO ACUTE DISTRESS NOTED. WILL CONTINUE TO OBSERVE.
--- NOTE | 2020-09-14 19:48 | NUR ---
PT IS AWAKE IN SEMI-FOWLERS WATCHING TV ON 4LNC W/ NO DISTRESS NOTED. I WILL RETURN AT A LATER TIME TO INITIATE NOC NIV.
--- NOTE | 2020-09-14 22:15 | NUR ---
PT WATCHING TELEVISION; DENIES PAIN @THIS TIME. NO ACUTE DISTRESS NOTED. WILL CONTINUE TO OBSERVE
--- NOTE | 2020-09-14 22:55 | NUR ---
PT WAS PLACED ON NOC NIV WITH SETTINGS THEY WERE ON STDBY 02/12 f16 28%. BIPAP PLUGGED INTO RED OUTLET WILL CONTINUE TO MONITOR
--- NOTE | 2020-09-14 23:11 | NUR ---
WENT TO BEDSIDE BIPAP WAS ALARMING DUE TO PT PULLING AT MASK (BIPAP). PT STATED SHE DOES NOT WANT MASK AND SHE DOES NOT LIKE IT. I ATTEMPTED TO ENCOURAGED/EDUCATE PT TO WEAR MASK. PT CONTINUES TO REFUSE MASK. I INFORMED PT I WOULD RETURN AT A LATER TIME TO ATTEMPT TO PLACE PT ON NIV
[2020-09-15] VITALS: BP 140/82
--- NOTE | 2020-09-15 00:05 | NUR ---
PT HAS EYES CLOSED; NO S/S OF RESP DISTRESS NOTED. WILL CONTINUE TO OBSERVE
--- NOTE | 2020-09-15 00:49 | NUR ---
PT REPLACED ON NOC NIV W/ NO CHANGES TO SETTINGS/BIPAP. BIPAP REMAINS PLUGGED INTO RED OUTLET W/ ALARMS ON & AUDIBLE WILL CONTINUE TO MONITOR
[2020-09-15] MEDS: Z-GUARD PASTE TP SCH ×2 (01:22→13:41)
--- NOTE | 2020-09-15 01:42 | NUR ---
BIPAP WAS ALARMING AND PT WAS PULLING AT MASK. RAMP WAS ENABLED AND MASK RE-ADJUSTED. PT LEFT MASK ON WILL CONTINUE TO MONITOR
--- NOTE | 2020-09-15 02:30 | NUR ---
PT TOLERATING BIPAP @ THIS TIME. FLACC 0 WILL CONTINUE TO OBSERVE
--- NOTE | 2020-09-15 03:22 | NUR ---
PT BIPAP WAS ALARMING DUE TO LG LEAK. LEAK WAS ADJUSTED/MASK RE-POSITIONED AND RESOLVED WILL CONTINUE TO MONITOR
--- NOTE | 2020-09-15 03:43 | NUR ---
BIPAP ALARMING DUE TO MASK LEAK. MASK + HEADGEAR EXCHANGED DUE TO DAMAGED HEADGEAR. MASK REPLACED ON PT AND ISSUE WAS RESOLVED. DURING MASK LEAK PT DESAT TO LOW/MID 80s. ONCE ISSUE CORRECTED SPO2 IS NOW CURRENTLY 96% WILL CONTINUE TO MONITOR
[2020-09-15 04:00] VITALS: BP 118/74
--- NOTE | 2020-09-15 04:16 | NUR ---
PT AROUSABLE; DENIES PAIN. NO S/S OF DISTRESS NOTED. X1 BM NOTED. PERICARE DONE. WILL CONTINUE TO OBSERVE
--- NOTE | 2020-09-15 05:00 | NUR ---
PT REMAINS ON NIV WITH SETTINGS THEY WERE INITIALLY 18/8 f16 28% W/ ALARMS ON AND AUDIBLE. BIPAP REMAINS PLUGGED INTO RED OUTLET.
--- NOTE | 2020-09-15 05:51 | NUR ---
ASSISTED W/ CLEANING PT AND PT WAS PLACED ON 4LNC SPO2 93% HR 90. PT IS AWAKE AND ALERT IN SEMI-FOWLERS WATCHING TV. BIPAP WAS PLACED ON STDBY AND REMAINS @ BEDSIDE
[2020-09-15 05:54] LABS: EOSINOPHILS # (AUTO) 0.2 K/uL (0-0.4); EOSINOPHILS % (AUTO) 4.7 % (0.0-4.0); HEMATOCRIT 25.2 % (36-48); LYMPHOCYTES # (AUTO) 0.7 K/uL (2.5-16.5); LYMPHOCYTES % (AUTO) 13.5 % (20.5-51.1); MEAN CORPUSCULAR HEMOGLOBIN 30 pg (27-31); MEAN CORPUSCULAR HGB CONC 32 g/dL (33-37); MEAN CORPUSCULAR VOLUME 92.9 fL (80-94); MONOCYTES # (AUTO) 0.5 K/uL (0.8-1.0); MONOCYTES % (AUTO) 9.2 % (1.7-9.3); NEUTROPHILS # (AUTO) 3.6 K/uL (1.8-7.7); NEUTROPHILS % (AUTO) 71.6 % (42.2-75.2); PLATELET COUNT (AUTO) 295 K/uL (140-450); RED BLOOD CELL COUNT(AUTO) 2.71 MIL/uL (4.20-5.40); RED CELL DISTRIBUTION WIDTH 18.3 % (11.6-13.7)
[2020-09-15 06:24] LABS: ALBUMIN 2.9 g/dL (3.4-5.0); ANION GAP 7.5 (8-16); CARBON DIOXIDE 34.4 mmol/L (21-32); CREATININE 1.4 mg/dL (0.6-1.3); POTASSIUM 3.9 mmol/L (3.5-5.1); TOTAL BILIRUBIN 0.4 mg/dL (0.0-1.0)
--- NOTE | 2020-09-15 06:30 | NUR ---
PT ON NASAL CANNULA NO SOB NOTED. WILL CONTINUE TO OBSERVE
[2020-09-15] MEDS: LEVOTHYROXINE 0.025 MG TAB NG SCH (06:36)
[2020-09-15] MEDS: MIDODRINE 5 MG TAB PO SCH ×4 (06:36→18:00)
--- NOTE | 2020-09-15 07:24 | NUR ---
PATIENT ENDORSED BY SURGICAL SCRUB TECH FOR CONTINUITY OF CARE, POC DISCUSSED. PATIENT IN STABLE CONDITION. PATIENT ON 4L NC WITH CHEST RISING AND FALLING EVEN AND UNLABORED. PATIENT ASLEEP COMFORTABLY IN BED, WITH NO ACUTE SIGNS OF DISTRESS. PATIENT HAS A RIGHT UPPER ARM PICC LINE WITH TKO. PATIENT HAS +2 PITTING EDEMA GENERALIZED. HEAD OF BEAD ELEVATED TO 45 DEGREES. ALL SAFETY MEASURES IN PLACE, WILL CONTINUE TO MONITOR.
[2020-09-15 08:00] VITALS: BP 130/82
--- NOTE | 2020-09-15 08:25 | NUR ---
LOC AWAKE AND ALERT VERBALLY RESPONSIVE GOOD EQUAL CHEST RISE NO INDICATIONS OF PULMONARY DISTRESS NOTED AT THIS TIME [facility] V60 BIPAP AT BEDSIDE FOR NOC AND PRN SOB DAYS SATURATION 99% ON SUPPLEMENTAL OXYGEN AT 4 LPM VIA NC TITRATED FIO2 TO 3 LPM CORPORATE LAW ASSISTANT TO MONITOR AND TITRATE FIO2 TOLERATED C/O NASAL DRYNESS ADDED HUMIDIFIER DANN/RN NOTIFIED OF FIO2 TITRATION
--- NOTE | 2020-09-15 08:51 | NUR ---
RT, MARCUS, DECREASED O2 SATURATION TO 3L LITERS.
[2020-09-15] MEDS: PANTOPRAZOLE 40 MG INJ VIAL IVP SCH (09:22)
[2020-09-15] MEDS: ASCORBIC ACID 500 MG/5 ML ORASYR PO SCH (09:22)
[2020-09-15] MEDS: DOCUSATE 100 MG/10 ML UDC GT SCH (09:23)
[2020-09-15] MEDS: ASPIRIN 81 MG TAB.CHEW NG SCH (09:23)
[2020-09-15] MEDS: MULTIVITAMIN/MINERALS 1 TAB PO SCH (09:23)
[2020-09-15] MEDS: LACTOBACILLUS RHAMNOSUS GG 1 EACH CAP PO SCH (09:23)
[2020-09-15] MEDS: ATORVASTATIN 20 MG TAB NG SCH (09:23)
[2020-09-15] MEDS: FUROSEMIDE 20 MG/2 ML VIAL IVP SCH (09:24)
--- NOTE | 2020-09-15 09:58 | NUR ---
SCHEDULED MEDICATION ADMINISTERED. PATIENT EDUCATION PROVIDED TO PATIENT. PATIENT TOLERATED ADMINISTRATION WITH WATER, PATIENT COUGHED SLIGHTLY AFTER ADMINISTRATION BUT NO SIGNS OF ACUTE DISTRESS. SATING AT 94% ON 3L NC. PICC LINE DRESSING DRY, CLEAN AND INTACT. PATIENT STATED NO OTHER NEEDS AT THIS TIME, COMFORTABLE IN BED WITH SAFETY MEASURES IN PLACE. CALL LIGHT WITHIN REACH. WILL CONTINUE TO MONITOR.
--- NOTE | 2020-09-15 11:11 | NUR ---
ROUNDED ON PATIENT, PATIENT IS RESTING COMFORTABLE IN BED WATCHING TV. NO ACUTE SIGNS OF DISTRESS. SAFETY MEASURES IN PLACE. CALL LIGHT WITHIN REACH. WILL CONTINUE TO MONITOR.
--- NOTE | 2020-09-15 11:12 | NUR ---
REVIEWED DR. MARLON GONZALEZ PROGRESS PLAN @ 2820: GOAL MAINTAIN 02 SATURATION ABOVE 88%
--- NOTE | 2020-09-15 11:32 | NUR ---
RESTING WELL NO SOB NOTED GOOD CHEST RISE AIRWAY PATENT SATURATION 97% ON SUPPLEMENTAL OXYGEN AT 3 LPM VIA NC TITRATED FIO2 TO 2 LPM DANN/RN NOTIFIED
[2020-09-15 12:00] VITALS: BP 123/77
--- NOTE | 2020-09-15 12:40 | NUR ---
ROUNDED ON PATIENT, PATIENT BP 123/77, HR 70, MIDODRINE NOT ADMINISTERED DUE TO BP. PATIENT SATING AT 93% ON 2L NC. PATIENT CHEST RISING AND FALLING EVEN AND UNLABORED. NO S/S OF DISTRESS. SAFETY MEASURES IN PLACE, CALL LIGHT WITHIN REACH.
[2020-09-15] MEDS: GAUZE TP SCH (13:40)
[2020-09-15] MEDS: THERAHONEY GEL 42.5 GM TP SCH (13:41)
--- NOTE | 2020-09-15 13:54 | NUR ---
WOUND CHANGE COMPLETE ON PATIENTS RIGHT BUTTOCKS. CLEANED WITH NORMAL SALINE AND PAT DRY. THERAHONEY ADDED WITH A 4X4 OPTIFORM. PATIENT TOLERATED PROCEDURE. PATIENTS BLE DRESSING CHANGED. CLEANED WITH NORMAL SALINE AND PAT DRY. 2 XEROFORM ADDED 2 RIGHT LEG, 3 XEROFORM ADDED TO LEFT LEG. PATIENT TOLERATED PROCEDURE. PATIENT ALSO CHANGED AND ALFA CARE PROVIDED. PATIENT ON 2L NC SATING AT 94%. PATIENT IN STABLE CONDITION, CALL LIGHT WITHIN REACH WITH ALL SAFETY MEASURES IN PLACE. WILL CONTINUE TO MONITOR.
--- NOTE | 2020-09-15 15:18 | NUR ---
DISCHARGE PLANNING Earlier today received call from Naresh @ [facility], ph [phone], & updated on pt status. [facility] is going to call pt's family to discuss dc planning, possible SNF. Later in afternoon order for dc planning. Sp[facility] with pt at [facility] dc planning with mother. Called & lt msg with mother Courtney Cao, ph [phone], to return call to discuss dc planning. Addendum: 09/15/20 at 1624 by Connie Tovar CM Received call back from mother Courtney & discussed dc planning. [facility] is agreeable with short term snf, that is going to go look at [facility] that is very close to her home. Addendum: 09/16/20 at 1000 by Meena Cummins CM DC COMPUTER OPERATIONS SUPERVISOR: FAXED TO [facility] [place]. WILL FOLLOW UP. Addendum: 09/16/20 at 1030 by Meena Cummins CM BLANCO SIMON: RECEIVED A CALL FROM RACHID AT [facility] [place]. THEY ARE ABLE TO ACCEPT PATIENT. WILL FOLLOW UP FOR A ROOM NUMBER. Addendum: 09/16/20 at 1058 by Meena Cummins CM BLANCO SIMON: PATIENT CAN GO TO ROOM 18-B UNDER DR. MAGAÑA Addendum: 09/16/20 at 1107 by Meena Cummins CM BLANCO BHAKTANER: CONTACTED ARYAN SANDY AT [facility] [phone] TO NOTIFY HER THAT [facility] CAN ACCEPT THIS PATIENT. VERONICA WILL ARRANGE WILL CALL TRANSPORTATION FOR US. I PROVIDED HER PATIENT'S WEIGHT, HEIGHT, AND O2 LITER FLOW Addendum: 09/16/20 at 1111 by Meena Cummins BLANCO SIMON: [address] [address] [facility] [address] MAGAÑA Addendum: 09/16/20 at 1636 by Ana Velasquez Veronica glover [facility] has authorized [facility] ambulance ([phone]); Wolfgang ([phone]) will be delivering Bi-Pap to [facility]. GERIATRIC ASSISTANT spoke [facility] to alert them of delivery for bi-pap.
--- NOTE | 2020-09-15 15:55 | NUR ---
ROUNDED ON PATIENT. PATIENT RESTING COMFORTABLY IN BED WATCHING TELEVISION, VERBALIZED NO NEEDS AT THIS TIME. PATIENT CHEST RISING AND FALLING, EVEN AND UNLABORED SHOWING NO SIGNS OF ACUTE DISTRESS. SAFETY MEASURES IN PLACE, CALL LIGHT WITHIN REACH. WILL CONTINUE TO MONITOR.
[2020-09-15 16:00] VITALS: BP 120/75
--- NOTE | 2020-09-15 16:42 | NUR ---
ROUNDED ON PATIENT. PATIENT IS AWAKE WATCHING TELEVISION STATING SHE SPOKE WITH HER MOM AND IS GOING HOME TODAY. EDUCATION PROVIDED TO PATIENT THAT WE ARE WAITING ON DISCHARGE ORDERS FROM HER DOCTOR AND SHE IS GOING TO A SNF FOR SHORT TIME. REINFORCEMENT NEEDED DUE TO COGNITIVE DELAY AND CONFUSION. PATIENT ON 2 L NC, SATING AT 95%, CHEST RISING AND FALLING WITH NO SIGNS OF ACUTE DISTRESS. SAFETY MEASURES IN PLACE. CALL LIGHT WITHIN REACH. WILL CONTINUE TO MONITOR.
--- NOTE | 2020-09-15 17:44 | NUR ---
PATIENT REPORTS FRUSTRATION OVER NOT BEING ABLE TO EAT OR DRINK ANYTHING DUE TO PROCEDURE SCHEDULED TODAY. EDUCATION PROVIDED TO PATIENT REGARDING WHY HE CAN NOT HAVE ANYTHING BY MOUTH. HE REPORTS BEING VERY FRUSTRATED AND JUST WANTING TO EAT BECAUSE HE FEELS LIGHT HEADED WITHOUT FOOD. Addendum: 09/15/20 at 1749 by Belén Suggs RN DOCUMENTATION ON WRONG PATIENT. [id number]
--- NOTE | 2020-09-15 17:56 | NUR ---
PT WAS SEEN FOR DYSPHAGIA. PT WS ABLE TO SAFELY SWALLOW MS DIET WITH FINELY CHOPPED VEG AND MEAT WITH THIN LIQUID. RECOMMENDATION MS DIET WITH FINELY CHOPPED VEG AND MEAT WITH THIN LIQUID
--- NOTE | 2020-09-15 18:15 | NUR ---
SENT MESSAGE TO DR. GANNON INFORMING HIM OF THE SPEECH THERAPIST SWALLOW EVALUATION RESULTS AND RECOMMENDATIONS FOR DR. GANNON TO ORDER NEW DIET.
--- NOTE | 2020-09-15 18:37 | NUR ---
ROUNDED ON PATIENT. PATIENT IN STABLE CONDITION. CALL LIGHT WITHIN REACH WITH SAFETY MEASURES IN PLACE. WILL CONTINUE TO MONITOR.
--- NOTE | 2020-09-15 19:25 | NUR ---
PT ENDORSED TO HOSPITAL CHIEF FINANCIAL OFFICER FOR CONTINUITY OF CARE. POC DISCUSSED. PT IN STABLE CONDITION.
--- NOTE | 2020-09-15 19:26 | NUR ---
RECEIVED BEDSIDE ENDORSEMENT FROM AM SHIFT RN. PATIENT IS AAOX1 TO NAME, FOLLOWS COMMANDS, NO DISTRESS, RESPIRATION EVEN AND UNLABORED, ON 2L NC, BEDBOUND, HOB ELEVATED, INDWELLING SHORE CATH IN PLACE, KALPESH PICC IN PLACE, SAFETY MEASURES IN PLACE, PLAN OF CARE DISCUSSED, WILL CONTINUE TO MONITOR, CALL LIGHT WITHIN REACH.
[2020-09-15 20:00] VITALS: BP 121/75
--- NOTE | 2020-09-15 21:36 | NUR ---
PATIENT IS AWAKE, HEPARIN SQ GIVEN ORDERED, MED EDUCATION PROVIDED, TOLERATED WELL, KEPT COMFORTABLE, CALL LIGHT WITHIN REACH.
[2020-09-16] VITALS: BP 126/76
--- NOTE | 2020-09-16 00:12 | NUR ---
PT WAS REMOVED FROM 2LNC AND PLACED ON NOC NIV WITH SETTINGS THEY WERE ON STDBY 02/12 f16 28%. BIPAP PLUGGED INTO RED OUTLET WILL CONTINUE TO MONITOR
[2020-09-16] MEDS: MIDODRINE 5 MG TAB PO SCH ×4 (00:26→18:03)
--- NOTE | 2020-09-16 00:34 | NUR ---
PATIENT IS ON BIPAP, DUE MEDS GIVEN ORDERED, TOLERATED WELL, WILL CONTINUE TO MONITOR, CALL LIGHT WITHIN REACH.
[2020-09-16] MEDS: Z-GUARD PASTE TP SCH ×2 (01:09→13:35)
--- NOTE | 2020-09-16 02:00 | NUR ---
ASLEEP, NO DISTRESS, O2 SAT WNL, CALL LIGHT WITHIN REACH.
--- NOTE | 2020-09-16 03:13 | NUR ---
PT REMOVED FROM BIPAP AND PLACED ON 3LNC SHE WOKE UP. CURRENT SPO2 94% WILL CONTINUE TO MONITOR Addendum: 09/16/20 at 0315 by Erik Gonzaels Jr RT BIPAP WAS PLACED ON STDBY @ BEDSIDE
[2020-09-16 04:00] VITALS: BP 141/96
[2020-09-16 05:17] LABS: BASOPHILS # (AUTO) 0.1 K/uL (0.00-0.22); BASOPHILS % (AUTO) 1.2 % (0.0-2.0); EOSINOPHILS # (AUTO) 0.3 K/uL (0-0.4); EOSINOPHILS % (AUTO) 5.5 % (0.0-4.0); HEMATOCRIT 25.9 % (36-48); HEMOGLOBIN 8.3 g/dL (12.0-16.0); LYMPHOCYTES % (AUTO) 21.2 % (20.5-51.1); MEAN CORPUSCULAR HEMOGLOBIN 30 pg (27-31); MEAN CORPUSCULAR HGB CONC 32 g/dL (33-37); MEAN CORPUSCULAR VOLUME 93.9 fL (80-94); MONOCYTES # (AUTO) 0.4 K/uL (0.8-1.0); MONOCYTES % (AUTO) 9.2 % (1.7-9.3); NEUTROPHILS # (AUTO) 2.9 K/uL (1.8-7.7); NEUTROPHILS % (AUTO) 62.9 % (42.2-75.2); PLATELET COUNT (AUTO) 346 K/uL (140-450); RED BLOOD CELL COUNT(AUTO) 2.76 MIL/uL (4.20-5.40); RED CELL DISTRIBUTION WIDTH 18.3 % (11.6-13.7); WHITE BLOOD COUNT (AUTO) 4.7 K/uL (4.8-10.8)
[2020-09-16 05:38] LABS: ALBUMIN 3.1 g/dL (3.4-5.0); ANION GAP 8.2 (8-16); CARBON DIOXIDE 34.7 mmol/L (21-32); CREATININE 1.4 mg/dL (0.6-1.3); POTASSIUM 3.9 mmol/L (3.5-5.1); TOTAL BILIRUBIN 0.4 mg/dL (0.0-1.0)
[2020-09-16] MEDS: LEVOTHYROXINE 0.025 MG TAB NG SCH (05:38)
--- NOTE | 2020-09-16 05:39 | NUR ---
HOB ELEVATED, SYNTHROID GIVEN ORDERED, TOLERATED WELL, WILL CONTINUE TO MONITOR, CALL LIGHT WITHIN REACH.
--- NOTE | 2020-09-16 06:18 | NUR ---
BP IS 138/87, HR 96. HELD MIDODRINE 10 MG PO. MD INFORMED. WILL CONTINUE TO MONITOR.
--- NOTE | 2020-09-16 07:35 | NUR ---
RECEIVED REPORT FROM ADVANCED MANUFACTURING ENGINEER NURSE. PATIENT SITTING DOWN IN BED AT HIGH BLUE'S POSITION. NO DISTRESS NOTED. ON O2 3L/MIN VIA NC WITH O2 SAT ON 97%. IV SITE INTACT, PATENT, AND INFUSING IVF PER MD ORDERS. REVIEWED PLAN OF CARE WITH PATIENT. REINFORCEMENT NEEDED. SAFETY MEASURES IN PLACE, CALL LIGHT WITHIN REACH. WILL CONTINUE TO MONITOR.
[2020-09-16] MEDS: ALBUTEROL 0.083% 2.5 MG/3 ML NEBU INH PRN (07:42)
--- NOTE | 2020-09-16 07:55 | NUR ---
PATIENT IS STABLE, NO DISTRESS, DENIES PAIN, ALL NEEDS ATTENDED, KEPT COMFORTABLE, CALL LIGHT WITHIN REACH, BEDSIDE ENDORSEMENT GIVEN TO AM SHIFT RN FOR CONTINUITY OF CARE.
[2020-09-16 08:00] VITALS: BP 120/78
[2020-09-16] MEDS: DOCUSATE 100 MG/10 ML UDC GT SCH (09:00)
[2020-09-16] MEDS: ASPIRIN 81 MG TAB.CHEW NG SCH (09:00)
[2020-09-16] MEDS: ATORVASTATIN 20 MG TAB NG SCH (09:00)
[2020-09-16] MEDS: FUROSEMIDE 20 MG/2 ML VIAL IVP SCH (09:00)
[2020-09-16] MEDS: ASCORBIC ACID 500 MG/5 ML ORASYR PO SCH (09:00)
[2020-09-16] MEDS: MULTIVITAMIN/MINERALS 1 TAB PO SCH (09:00)
[2020-09-16] MEDS: PANTOPRAZOLE 40 MG INJ VIAL IVP SCH (09:00)
[2020-09-16] MEDS: LACTOBACILLUS RHAMNOSUS GG 1 EACH CAP PO SCH (09:00)
--- NOTE | 2020-09-16 09:16 | NUR ---
PATIENT SITTING AND EATING BREAKFAST BY HER SELF. NO DISTRESS NOTED. SCHEDULED MEDICATIONS DUE GIVEN. WILL CONTINUE TO MONITOR.
--- NOTE | 2020-09-16 11:00 | NUR ---
WOUND NURSE AT BEDSIDE, ASSISTED WOUND NURSE WITH CHANGING WOUND DRESSINGS ON RIGHT BUTTOCK. WILL CONTINUE TO MONITOR.
--- NOTE | 2020-09-16 11:40 | NUR ---
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 -RECOMMENDATION TO DISCONTINUE THERAHONEY GEL AND CHANGE TO APPLY Z GUARD TO RIGHT ISCHIUM AND COVER WITH FOAM DRESSING QD AND PRN IF SOILING POC DISCUSSED WITH PRIMARY RN AND PT. PT. VERBALIZES UNDERSTANDING
[2020-09-16 12:00] VITALS: BP 111/70
[2020-09-16] MEDS: GAUZE TP SCH (13:34)
[2020-09-16] MEDS: THERAHONEY GEL 42.5 GM TP SCH (13:35)
--- NOTE | 2020-09-16 13:36 | NUR ---
SCHEDULED MEDICATIONS DUE GIVEN. WILL CONTINUE TO MONITOR.
--- NOTE | 2020-09-16 15:44 | NUR ---
ASLEEP RESTING WELL NO DISTRESS NOTED GOOD CHEST RISE SATURATION 99% ON SUPPLEMENTAL OXYGEN AT 3 LPM VIA NC TITRATED FIO2 2 LPM DARINEL/RN NOTIFIED
[2020-09-16 16:00] VITALS: BP 96/72
--- NOTE | 2020-09-16 18:04 | NUR ---
SCHEDULED MEDICATIONS DUE GIVEN. CALLED [facility] AND GAVE REPORT TO TARIK GOEL. ANSWERED ALL OF HIS QUESTIONS REGARDING TRANSFER. NOTIFIED AMANDO THAT WE ARE WAITING FOR TRANSPORTATION AUTHORIZATION TO BE TRANSFERRED LATER TONIGHT. CALLED PATIENT'S MOTHER KHRIS MILLS AND NOTIFIED HER OF PATIENT'S TRANSPORT LATER TODAY TO [facility]. WILL CONTINUE TO MONITOR.
--- NOTE | 2020-09-16 19:00 | NUR ---
SAVI FROM [facility] CALLED AND GAVE TRANSPORTATION ETA, ITS [facility] TRANSPORT I INFORMED HER THAT PATIENT NEEDS A BIG BOY GURNEY DUE TO HER WEIGHT SHE SAID SHE WILL CALL BACK.
--- NOTE | 2020-09-16 19:30 | NUR ---
RECEIVED REPORT AND CARE FROM DAYSHIFT RN. PATIENT ALERT AND ORIENTED X TO PERSON, PLACE. PATIENT RESTING IN A POSITION OF COMFORT WITH THE HOB 30 DEGREES, AIRWAY OPEN PATENT, CLEAR AND MAINTAINABLE, ON 2 LPM NC, OXYGEN SATURATION AT 96%. PATIENT HAS FEEDING ORDER OF MECHANICAL SOFT DIET, TOLERATING WELL. PATIENT CONNECTED TO CONTINUOUS TELE MONITOR, NSR IN TELE AT 74 HR. WILL CONTINUE TO CLOSELY MONITOR. PATIENT HAS IV SITES RIGHT UPPER ARM PICC LINE, DRESSING DRY, INTACT, SITE FLUSHING WELL. NO IV DRIPS RUNNING AT TIME OF TRANSFER. PATIENT DRY WEIGHT IS APPROXIMATELY 144.2 KG.PATIENT HAS A SHORE CATHETER IN PLACE, INTACT, AND DRAINING WELL. PATIENT DENIES ANY PAIN WHEN ASKED. PATIENT IS CURRENTLY BEING OFFLOADED FROM PRESSURE POINTS WITH USE OF PILLOWS AND FREQUENT REPOSITIONING, EDUCATED ON THE IMPORTANCE OF REPOSITIONING FOR WOUND PREVENTION. THE CALL LIGHT IS PLACED WITHIN REACH AT THE BEDSIDE AND EDUCATED/FAMILIARIZED WITH CONTROLS. PROMOTING A RESTFUL ENVIRONMENT WITH DECREASED STIMULI IN THE ROOM. WILL CONTINUE TO REASSESS OFTEN, CLOSELY MONITOR AND FREQUENTLY ROUND THROUGHOUT THE SHIFT.
--- NOTE | 2020-09-16 19:35 | NUR ---
GAVE REPORT TO TOOL OR DIE DRAWING CHECKER NURSE FOR CONTINUITY OF CARE. PATIENT IN STABLE CONDITION.
--- NOTE | 2020-09-16 19:48 | NUR ---
SAVI CALLED BACK SHE SAID IT WILL DELAY FOR AN HOUR AND TRANSPORTATION WILL BE [facility]. NOTIFY TARIK LUNA.
--- NOTE | 2020-09-16 20:22 | NUR ---
PATIENT RESTING IN A POSITION OF COMFORT, TOLERATING NC 2 LPM WELL, 97% OXYGEN SATURATION. NO SIGNS OF DISTRESS OBSERVED WHILE AT BEDSIDE. WILL CONTINUE TO CLOSELY MONITOR AND FREQUENTLY ROUND.
--- NOTE | 2020-09-16 21:00 | NUR ---
SCHEDULED MEDICATIONS GIVEN PER MD ORDERS, TOLERATING WELL, WILL CONTINUE TO CLOSELY MONITOR AND FREQUENTLY ROUND.
[2020-09-16 21:45] VITALS: BP 112/67
--- NOTE | 2020-09-16 21:45 | NUR ---
[facility] TRANSPORT CREW ARRIVED TO TRANSPORT PATIENT TO [facility]. UPDATED VS AT TIME OF TRANSFER BP 112/67, HR 87, O2 SAT 97% ON 2 LPM NC, TEMP 97.1, AND RR 20, STABLE NO SIGNS OF DISTRESS OBSERVED. PATIENT BELONGINGS BAG AND PAPERWORK SENT WITH THE PATIENT FOR TRANSPORT. PER DARINEL CHAVIS RN, STATED SPOKE WITH RECEIVING FACILITY AND GAVE REPORT ON THE PATIENT. ALSO PARTHA RN INSTRUCTED TO REMOVE SHORE CATHETER AND PICC LINE AT TIME OF TRANSFER, REMOVED SUCCESSFULLY. REPORT GIVEN TO [facility] CREW AND ANSWERED ALL QUESTIONS PRIOR TO THEIR DEPARTURE.
== END 2020-09-16 21:50 | DRG 207 ==
LOC: MED 11:50 → MIC 16:04 → MTU 09-01 13:42 → MIC 09-06 12:34 → MTU 09-14 15:00
PROVIDERS: ADMIT Internal Medicine; ATTEND Internal Medicine
PROC: 0BH17EZ Insertion of Endotracheal Airway into Trachea, Via Natural or Artificial Opening (ICD-10-PCS; principal; 2020-08-20)
PROC: 5A1945Z Respiratory Ventilation, 24-96 Consecutive Hours (ICD-10-PCS; 2020-08-20)
PROC: 02HV33Z Insertion of Infusion Device into Superior Vena Cava, Percutaneous Approach (ICD-10-PCS; 2020-08-20)
PROC: 5A09357 Assistance with Respiratory Ventilation, Less than 24 Consecutive Hours, Continuous Positive Airway Pressure (ICD-10-PCS; 2020-08-24)
PROC: 5A09357 Assistance with Respiratory Ventilation, Less than 24 Consecutive Hours, Continuous Positive Airway Pressure (ICD-10-PCS; 2020-08-25)
PROC: 5A0935A Assistance with Respiratory Ventilation, Less than 24 Consecutive Hours, High Flow/Velocity Cannula (ICD-10-PCS; 2020-08-25)
PROC: 5A0935A Assistance with Respiratory Ventilation, Less than 24 Consecutive Hours, High Flow/Velocity Cannula (ICD-10-PCS; 2020-08-26)
PROC: 5A09357 Assistance with Respiratory Ventilation, Less than 24 Consecutive Hours, Continuous Positive Airway Pressure (ICD-10-PCS; 2020-08-27)
PROC: 5A0935A Assistance with Respiratory Ventilation, Less than 24 Consecutive Hours, High Flow/Velocity Cannula (ICD-10-PCS; 2020-08-27)
PROC: 5A09357 Assistance with Respiratory Ventilation, Less than 24 Consecutive Hours, Continuous Positive Airway Pressure (ICD-10-PCS; 2020-08-28)
PROC: 5A0935A Assistance with Respiratory Ventilation, Less than 24 Consecutive Hours, High Flow/Velocity Cannula (ICD-10-PCS; 2020-08-28)
PROC: 5A09357 Assistance with Respiratory Ventilation, Less than 24 Consecutive Hours, Continuous Positive Airway Pressure (ICD-10-PCS; 2020-08-29)
PROC: 5A0935A Assistance with Respiratory Ventilation, Less than 24 Consecutive Hours, High Flow/Velocity Cannula (ICD-10-PCS; 2020-08-29)
PROC: 5A09357 Assistance with Respiratory Ventilation, Less than 24 Consecutive Hours, Continuous Positive Airway Pressure (ICD-10-PCS; 2020-08-30)
PROC: 5A0935A Assistance with Respiratory Ventilation, Less than 24 Consecutive Hours, High Flow/Velocity Cannula (ICD-10-PCS; 2020-08-30)
PROC: 5A09357 Assistance with Respiratory Ventilation, Less than 24 Consecutive Hours, Continuous Positive Airway Pressure (ICD-10-PCS; 2020-08-31)
PROC: 5A0935A Assistance with Respiratory Ventilation, Less than 24 Consecutive Hours, High Flow/Velocity Cannula (ICD-10-PCS; 2020-08-31)
PROC: 5A09357 Assistance with Respiratory Ventilation, Less than 24 Consecutive Hours, Continuous Positive Airway Pressure (ICD-10-PCS; 2020-09-01)
PROC: 5A0935A Assistance with Respiratory Ventilation, Less than 24 Consecutive Hours, High Flow/Velocity Cannula (ICD-10-PCS; 2020-09-01)
PROC: 5A09357 Assistance with Respiratory Ventilation, Less than 24 Consecutive Hours, Continuous Positive Airway Pressure (ICD-10-PCS; 2020-09-02)
PROC: 5A0935A Assistance with Respiratory Ventilation, Less than 24 Consecutive Hours, High Flow/Velocity Cannula (ICD-10-PCS; 2020-09-02)
PROC: 5A09357 Assistance with Respiratory Ventilation, Less than 24 Consecutive Hours, Continuous Positive Airway Pressure (ICD-10-PCS; 2020-09-03)
PROC: 5A0935A Assistance with Respiratory Ventilation, Less than 24 Consecutive Hours, High Flow/Velocity Cannula (ICD-10-PCS; 2020-09-03)
PROC: 5A09357 Assistance with Respiratory Ventilation, Less than 24 Consecutive Hours, Continuous Positive Airway Pressure (ICD-10-PCS; 2020-09-04)
PROC: 5A0935A Assistance with Respiratory Ventilation, Less than 24 Consecutive Hours, High Flow/Velocity Cannula (ICD-10-PCS; 2020-09-04)
PROC: 5A0935A Assistance with Respiratory Ventilation, Less than 24 Consecutive Hours, High Flow/Velocity Cannula (ICD-10-PCS; 2020-09-05)
PROC: 5A1955Z Respiratory Ventilation, Greater than 96 Consecutive Hours (ICD-10-PCS; 2020-09-06)
PROC: 0BH17EZ Insertion of Endotracheal Airway into Trachea, Via Natural or Artificial Opening (ICD-10-PCS; 2020-09-06)
PROC: 5A09357 Assistance with Respiratory Ventilation, Less than 24 Consecutive Hours, Continuous Positive Airway Pressure (ICD-10-PCS; 2020-09-06)
PROC: 5A0935A Assistance with Respiratory Ventilation, Less than 24 Consecutive Hours, High Flow/Velocity Cannula (ICD-10-PCS; 2020-09-06)
PROC: 5A09357 Assistance with Respiratory Ventilation, Less than 24 Consecutive Hours, Continuous Positive Airway Pressure (ICD-10-PCS; 2020-09-12)
PROC: 5A09357 Assistance with Respiratory Ventilation, Less than 24 Consecutive Hours, Continuous Positive Airway Pressure (ICD-10-PCS; 2020-09-13)
PROC: 5A09357 Assistance with Respiratory Ventilation, Less than 24 Consecutive Hours, Continuous Positive Airway Pressure (ICD-10-PCS; 2020-09-14)
PROC: 5A09357 Assistance with Respiratory Ventilation, Less than 24 Consecutive Hours, Continuous Positive Airway Pressure (ICD-10-PCS; 2020-09-16)
DX: J96.02 Acute respiratory failure with hypercapnia (principal); I50.33 Acute on chronic diastolic (congestive) heart failure; I13.0 Hypertensive heart and chronic kidney disease with heart failure and stage 1 through stage 4 chronic kidney disease, or unspecified chronic kidney disease; E66.2 Morbid (severe) obesity with alveolar hypoventilation; N17.9 Acute kidney failure, unspecified; E87.0 Hyperosmolality and hypernatremia; Z68.43 Body mass index [BMI] 50.0-59.9, adult; J96.01 Acute respiratory failure with hypoxia; N18.2 Chronic kidney disease, stage 2 (mild); E78.5 Hyperlipidemia, unspecified; E03.9 Hypothyroidism, unspecified; E87.5 Hyperkalemia; E87.6 Hypokalemia; D64.9 Anemia, unspecified; Z20.822 Contact with and (suspected) exposure to COVID-19
CPT/HCPCS: 31500; 36415; 36600; 51702; 71045; 74018; 80048; 80053; 80202; 81001; 81003; 82550; 82553; 82803; 82948; 83605; 83735; 83880; 84100; 84300; 84484; 85025; 85610; 85730; 87040; 87070; 87081; 87086; 87186; 87205; 87804; 92610; 93005; 94002; 94003; 94640; 94660; 96372; 96374; 96375; 97110; 97164; 97530; 99291; A4649; C9113; J0696; J1265; J1644; J1650; J1815; J1940; J2704; J3010; J3370; J3480; J3490; J7030; J7060; J7613; P9041; P9046